=== PATIENT | male | born 1950 | race Caucasian/White ===

== ENCOUNTER → 2019-09-29 12:44 | Outpatient (CLI) | payer OTHER, SELFPAY ==
--- NOTE | 2019-09-29 12:50 | RAD_ITS ---
STUDY: X-RAY - LEFT KNEE REASON FOR EXAM: Male, 69 years old. PAIN IN LEFT KNEE. NO KNOWN RECENT INJURY. TECHNIQUE: 4 view(s) of the knee. COMPARISON: None. FINDINGS: Normal visualized distal femur. Normal visualized proximal tibia and fibula. Normal proximal tibiofibular articulation. Normal medial femorotibial compartment. There is mild degenerative arthrosis of the lateral femorotibial compartment. Normal patellofemoral articulation. The soft tissue structures are unremarkable. RAD/Knee 4 or More Views IMPRESSION: Degenerative arthrosis. Electronically Signed: Ivan Velazquez, at 15:25 EDT , Service support ,
--- NOTE | 2019-09-29 14:11 | RAD_ITS ---
STUDY: X-RAY - RIGHT SHOULDER REASON FOR EXAM: Male, 69 years old. PAIN IN RIGHT SHOULDER FOR YEARS. NO KNOWN RECENT INJURY. TECHNIQUE: 4 view(s) of the shoulder. COMPARISON: None. FINDINGS: Normal glenohumeral articulation. There is degenerative arthrosis of the acromioclavicular joint without inferior osseous spur formation. Normal acromion. Normal humeral head and visualized proximal humerus. There is periarticular soft tissue calcification consistent with a calcific tendinitis. Normal visualized pulmonary apex. RAD/Shoulder min 2 Views IMPRESSION: Calcific tendinitis. Electronically Signed: Ivan Velazquez, at 15:26 EDT , Service support ,
== END ==
PROVIDERS: PCP Internal Medicine; Referring Provider Orthopaedic Surgery; Visit Provider Orthopaedic Surgery
DX: M75.31 Calcific tendinitis of right shoulder (principal); M17.12 Unilateral primary osteoarthritis, left knee
CPT/HCPCS: 73030; 73564

== ENCOUNTER → 2020-02-09 09:47 | Outpatient (CLI) | payer MEDICARE, OTHER, SELFPAY ==
[2019-12-01 14:21] VITALS: BMI 31.7
[2020-02-09 12:11] LABS: Absolute Lymphocyte Count 1.53 X10^3/uL (0.83-4.51); Absolute Neutrophil Count 3.9 X10^3/uL (2.0-7.7); Basophil# 0.02 X10^3/uL; Basophil% 0.3 % (0-1); Eosinophils% 1.7 % (0-5); Hemoglobin 15.4 g/dL (13.0-16.5); Lymphocyte # 1.53 X10^3/ul (4.0); Lymphocyte % 25.3 % (19-41); Mean Corp Hgb Conc 34.2 g/dL (32-36); Mean Corpuscular Volume 93.4 fL (80-94); Mean Platelet Vol. 10.2 fl (6.2-12.0); Monocyte# 0.44 X10^3/uL; Monocyte% 7.3 % (0-10); NRBC Flagged by Analyzer 0 % (0-5); Neutrophil # 3.94 X10^3/uL (2.7-7.7); Neutrophil % 65.1 % (47-70); Platelet Count 198 K/mm3 (150-450); RBC Distribution Width CV 12.1 % (11.6-14.6); RBC Distribution Width SD 41.5 fl (35.1-43.9); Red Blood Count 4.82 M/mm3 (4.6-6.2); White Blood Count 6.1 K/mm3 (4.4-11.0)
[2020-02-09 12:38] LABS: ALB/GLOB Ratio 0.9 RATIO (0.9-2.4); AST(SGOT) 25 U/L (15-37); Alanine Aminotransfer ALT/SGPT 48 U/L (16-61); Albumin, Serum 3.5 g/dL (3.2-5.0); Alkaline Phosphatase 83 U/L (45-117); Anion Gap 3 (5-15); BUN 16 mg/dL (7-18); BUN/Creat Ratio 11.6 RATIO (10-20); Calcium,Total 9.1 mg/dL (8.5-10.1); Chloride 111 mmol/L (98-107); Cholesterol 186 mg/dL (200); Creatinine, Serum 1.38 mg/dL (0.70-1.30); EST Glomerular Filtration Rate 54 mL/min (>60); Est Glom Filt Rate - Afr Amer 66 mL/min (>60); Globulin 3.7 g/dL (2.2-4.2); Glucose 95 mg/dL (74-106); High Density Lipoprotein 27 mg/dL; Potassium 4.1 mmol/L (3.5-5.1); Protein, Total 7.2 g/dL (6.4-8.2); Sodium Level 140 mmol/L (136-145); Triglycerides 852 mg/dL
== END ==
PROVIDERS: PCP Internal Medicine; Visit Provider Internal Medicine
DX: E78.5 Hyperlipidemia, unspecified (principal); I48.91 Unspecified atrial fibrillation; I10 Essential (primary) hypertension
CPT/HCPCS: 36415; 80053; 80061; 85025

== ENCOUNTER → 2020-03-19 17:36 | Outpatient (CLI) | payer MEDICARE, OTHER, SELFPAY ==
[2020-03-19 11:33] VITALS: BMI 38.9
== END ==
PROVIDERS: PCP Internal Medicine; Referring Provider Physician Assistant Surgical; Visit Provider Physician Assistant Surgical
DX: Z20.828 Contact with and (suspected) exposure to other viral communicable diseases (principal)
CPT/HCPCS: 87635; C9803; U0003

== ENCOUNTER → 2020-05-12 09:00 | Outpatient (CLI) | payer MEDICARE, OTHER, SELFPAY ==
[2020-05-12 12:53] LABS: AST(SGOT) 18 U/L (15-37); Alanine Aminotransfer ALT/SGPT 44 U/L (16-61); Albumin, Serum 3.6 g/dL (3.2-5.0); Alkaline Phosphatase 76 U/L (45-117); Anion Gap 7 (5-15); BUN 28 mg/dL (7-18); BUN/Creat Ratio 19.7 RATIO (10-20); Calcium,Total 9.5 mg/dL (8.5-10.1); Chloride 108 mmol/L (98-107); Cholesterol 160 mg/dL (200); Creatinine, Serum 1.42 mg/dL (0.70-1.30); EST Glomerular Filtration Rate 52 mL/min (>60); Est Glom Filt Rate - Afr Amer 63 mL/min (>60); Globulin 3.6 g/dL (2.2-4.2); Glucose 110 mg/dL (74-106); High Density Lipoprotein 53 mg/dL; PSA,Total - Annual Screen 4.01 ng/mL (0.00-4.00); Potassium 4.3 mmol/L (3.5-5.1); Protein, Total 7.2 g/dL (6.4-8.2); Sodium Level 140 mmol/L (136-145); Triglycerides 131 mg/dL; Very Low Density Lipoprotein 26 mg/dL (5-40)
== END ==
PROVIDERS: Nurse Practitioner Family; PCP Internal Medicine; Referring Provider Internal Medicine; Visit Provider Internal Medicine
DX: E78.1 Pure hyperglyceridemia (principal); E78.5 Hyperlipidemia, unspecified; I10 Essential (primary) hypertension; N40.0 Benign prostatic hyperplasia without lower urinary tract symptoms
CPT/HCPCS: 36415; 80053; 80061; 84153; G0103

== ENCOUNTER → 2020-05-25 17:01 | Outpatient (CLI) | payer MEDICARE, OTHER, SELFPAY ==
[2020-05-14 13:04] VITALS: BMI 31.8
--- NOTE | 2020-05-25 17:01 | MRI_ITS ---
STUDY: MRI LUMBAR SPINE WITHOUT CONTRAST REASON FOR EXAM: Male, 70 years old. LBP, abnormal xrays, prior laminectomy at L4-L5 TECHNIQUE: Standardized fat and water weighted pulse sequences were obtained in the sagittal and axial planes. COMPARISON: Lumbar spine x-rays 05/10/2020 FINDINGS: T12-L1: Normal endplates. Normal disc height, hydration and morphology. Normal bilateral facet joints. Normal central canal and bilateral lateral recesses. Normal bilateral intervertebral neural foramina. Normal lumbar lordosis. There is no substantial scoliosis. Normal conus medullaris that terminates at T12-L1 L1-2: Normal endplates. Normal disc height, hydration and morphology. Normal bilateral facet joints. Normal central canal and bilateral lateral recesses. Normal bilateral intervertebral neural foramina. L2-3: Normal endplates. Normal disc height, hydration and morphology. Normal bilateral facet joints. Normal central canal and bilateral lateral recesses. Normal bilateral intervertebral neural foramina. L3-4: Normal endplates. Normal disc height, hydration and morphology. Normal bilateral facet joints. Normal central canal and bilateral lateral recesses. Normal bilateral intervertebral neural foramina. L4-5: Postop change status post left laminectomy Normal endplates. Normal disc height, hydration and minimal bulging disc osteophyte complex. Mild bilateral facet arthropathy more pronounced on the right.. Normal central canal and bilateral lateral recesses. Moderate right neuroforaminal stenosis and mild encroachment on the left. L5-S1: Grade 1 spondylolisthesis with bilateral spondylolysis. Normal endplates. Normal disc height, desiccation and minimal bulging disc osteophyte complex with small left posterolateral/foraminal disc protrusion... Bilateral facet arthropathy more pronounced on the right. Normal central canal and bilateral lateral recesses. Moderate right neuroforaminal stenosis with more severe narrowing on the left Normal visualized sacral ala. Normal visualized paraspinous soft tissue structures Findings are similar to that seen on x-rays given differences in imaging modalities. MRI/Spine Lumbar (Routine) IMPRESSION: No evidence for acute fracture or other significant bony pathology. Postop change status post left laminectomy at L4-5 Spinal stenosis secondary to disc disease and bony hypertrophy at L4-5 greater on the right and L5-S1 greater on the left.. Findings as above Electronically Signed: Veto Proctor MD at 20:53 EST , Service support ,
== END ==
PROVIDERS: PCP Internal Medicine; Referring Provider Orthopaedic Surgery; Visit Provider Orthopaedic Surgery
DX: M54.16 Radiculopathy, lumbar region (principal)
CPT/HCPCS: 72148

== ENCOUNTER → 2020-11-09 09:50 | Outpatient (CLI) | payer MEDICARE, OTHER, SELFPAY ==
[2020-06-09 10:54] VITALS: BMI 31.8
[2020-11-09 12:56] LABS: Cholesterol 136 mg/dL (200); High Density Lipoprotein 45 mg/dL; Triglycerides 202 mg/dL; Very Low Density Lipoprotein 40 mg/dL (5-40)
[2020-11-09 15:32] LABS: Absolute Lymphocyte Count 1.49 X10^3/uL (0.83-4.51); Basophil# 0.04 X10^3/uL; Basophil% 0.8 % (0-1); Eosinophil# 0.13 X10^3/uL; Eosinophils% 2.5 % (0-5); Hematocrit 47.8 % (40-54); Hemoglobin 15.6 g/dL (13.0-16.5); Lymphocyte # 1.49 X10^3/ul (0.83-4.51); Lymphocyte % 29.2 % (19-41); Mean Corp Hgb Conc 32.6 g/dL (32-36); Mean Corpuscular Hgb 31.5 pg (27.0-32.0); Mean Corpuscular Volume 96.4 fL (80-94); Mean Platelet Vol. 10.4 fl (6.2-12.0); Monocyte# 0.41 X10^3/uL; NRBC Flagged by Analyzer 0 % (0-5); Neutrophil # 3.02 X10^3/uL (2.7-7.7); Neutrophil % 59.3 % (47-70); Platelet Count 223 K/mm3 (150-450); RBC Distribution Width CV 12.3 % (11.6-14.6); RBC Distribution Width SD 44.2 fl (35.1-43.9); Red Blood Count 4.96 M/mm3 (4.6-6.2); White Blood Count 5.1 K/mm3 (4.4-11.0)
[2020-11-09 15:47] LABS: ALB/GLOB Ratio 1.1 RATIO (0.9-2.4); AST(SGOT) 18 U/L (15-37); Alanine Aminotransfer ALT/SGPT 32 U/L (16-61); Albumin, Serum 3.9 g/dL (3.2-5.0); Alkaline Phosphatase 73 U/L (45-117); Anion Gap 6 (5-15); BUN 16 mg/dL (7-18); BUN/Creat Ratio 11.7 RATIO (10-20); Calcium,Total 9.5 mg/dL (8.5-10.1); Chloride 108 mmol/L (98-107); Creatinine, Serum 1.37 mg/dL (0.70-1.30); EST Glomerular Filtration Rate 55 mL/min (>60); Est Glom Filt Rate - Afr Amer 66 mL/min (>60); Globulin 3.6 g/dL (2.2-4.2); Glucose 86 mg/dL (74-106); Potassium 4.2 mmol/L (3.5-5.1); Protein, Total 7.5 g/dL (6.4-8.2); Sodium Level 142 mmol/L (136-145); Thyroid Stim Hormone (TSH) 1.67 uIU/mL (0.358-3.74)
[2020-11-11 15:29] LABS: PSA, Total 3.9 ng/mL (0.0-4.0)
== END ==
PROVIDERS: Nurse Practitioner Family; PCP Internal Medicine; Visit Provider Internal Medicine
DX: I10 Essential (primary) hypertension (principal); I48.0 Paroxysmal atrial fibrillation; N40.0 Benign prostatic hyperplasia without lower urinary tract symptoms; E78.5 Hyperlipidemia, unspecified
CPT/HCPCS: 36415; 80053; 80061; 84153; 84443; 85025

== ENCOUNTER → 2021-01-28 10:41 | Outpatient (CLI) | payer MEDICARE, OTHER, SELFPAY ==
[2021-01-28 12:14] LABS: Absolute Lymphocyte Count 1.34 X10^3/uL (0.83-4.51); Absolute Neutrophil Count 2.3 X10^3/uL (2.0-7.7); Basophil# 0.01 X10^3/uL; Basophil% 0.2 % (0-1); Eosinophil# 0.07 X10^3/uL; Eosinophils% 1.7 % (0-5); Hematocrit 43.5 % (40-54); Hemoglobin 14.7 g/dL (13.0-16.5); Lymphocyte # 1.34 X10^3/ul (0.83-4.51); Lymphocyte % 33.3 % (19-41); Mean Corp Hgb Conc 33.8 g/dL (32-36); Mean Corpuscular Hgb 32.1 pg (27.0-32.0); Mean Platelet Vol. 10.4 fl (6.2-12.0); Monocyte# 0.31 X10^3/uL; Monocyte% 7.7 % (0-10); NRBC Flagged by Analyzer 0 % (0-5); Neutrophil # 2.29 X10^3/uL (2.7-7.7); Neutrophil % 56.9 % (47-70); Platelet Count 215 K/mm3 (150-450); RBC Distribution Width CV 12.7 % (11.6-14.6); RBC Distribution Width SD 43.8 fl (35.1-43.9); Red Blood Count 4.58 M/mm3 (4.6-6.2)
[2021-01-28 12:43] LABS: ALB/GLOB Ratio 1.1 RATIO (0.9-2.4); AST(SGOT) 17 U/L (15-37); Alanine Aminotransfer ALT/SGPT 30 U/L (16-61); Albumin, Serum 3.7 g/dL (3.2-5.0); Alkaline Phosphatase 65 U/L (45-117); Anion Gap 3 (5-15); BUN 18 mg/dL (7-18); BUN/Creat Ratio 13.2 RATIO (10-20); Calcium,Total 9.4 mg/dL (8.5-10.1); Chloride 111 mmol/L (98-107); Cholesterol 117 mg/dL (200); Creatinine, Serum 1.36 mg/dL (0.70-1.30); EST Glomerular Filtration Rate 55 mL/min (>60); Est Glom Filt Rate - Afr Amer 66 mL/min (>60); Globulin 3.3 g/dL (2.2-4.2); Glucose 99 mg/dL (74-106); High Density Lipoprotein 38 mg/dL; Potassium 3.9 mmol/L (3.5-5.1); Sodium Level 142 mmol/L (136-145); Thyroid Stim Hormone (TSH) 1.07 uIU/mL (0.358-3.74); Triglycerides 157 mg/dL; Very Low Density Lipoprotein 31 mg/dL (5-40)
== END ==
PROVIDERS: PCP Internal Medicine; Referring Provider Nurse Practitioner Family; Visit Provider Nurse Practitioner Family
DX: Z01.812 Encounter for preprocedural laboratory examination (principal); M17.12 Unilateral primary osteoarthritis, left knee; I48.0 Paroxysmal atrial fibrillation; I10 Essential (primary) hypertension; E78.5 Hyperlipidemia, unspecified; E78.1 Pure hyperglyceridemia; N40.0 Benign prostatic hyperplasia without lower urinary tract symptoms
CPT/HCPCS: 36415; 80053; 80061; 84443; 85025

== ENCOUNTER → 2021-02-07 13:12 | Outpatient (CLI) | payer MEDICARE, OTHER, SELFPAY ==
--- NOTE | 2021-02-07 13:18 | CT_ITS ---
CT Lower Extremity W/O Contrast Injection INDICATION:70 years old Male presenting with CT templating for TKA. TECHNIQUE: Sequential axial images were obtained, (2.5 mm through the hip and ankle and 0.65 mm through the knee) with sagittal and coronal 2-D reformats. No contrast is administered. COMPARISON: None. FINDINGS: No evidence of left hip dislocation, subcortical cysts is slightly increased density along the undersurface of the left hip is visualized but no evidence of cortical irregularity and lucency to suggest a fracture. Degenerative bone changes are seen. Moderate narrowing of the medial and lateral left knee joint spaces, mild narrowing of the patellofemoral joint space, degenerative bone changes with osteophyte formation seen, no evidence of cortical irregularity or lucency to suggest a fracture, no evidence of lytic or sclerotic lesion is seen. A bone density visualized in the left lateral joint space, no donor site is visualized. Degenerative changes visualized in the left ankle joint, the ankle mortise is well-maintained, the talar dome is unremarkable, unremarkable alignment of the medial and lateral malleoli is seen. Degenerative changes seen. IMPRESSION: Degenerative changes, no acute osseous abnormality is seen. Electronically Signed: Adeel Stiles MD at 14:56 EDT Tel , Service support , CT/Extremity Lower without Contra
== END ==
PROVIDERS: PCP Internal Medicine; Referring Provider Orthopaedic Surgery; Visit Provider Orthopaedic Surgery
DX: M17.12 Unilateral primary osteoarthritis, left knee (principal)
CPT/HCPCS: 73700

== ENCOUNTER 2021-02-22 09:59 | Inpatient (IN) | payer MEDICARE, OTHER, SELFPAY ==
--- NOTE | 2021-02-09 10:34 | EKG12_ITS ---
Test Reason : PRE OP Blood Pressure : / mmHG Vent. Rate : 080 BPM Atrial Rate : 080 BPM P-R Int : 182 ms QRS Dur : 086 ms QT Int : 372 ms P-R-T Axes : 076 081 066 degrees QTc Int : 429 ms Normal sinus rhythm Normal ECG Confirmed by LEOLA GARCIA, TAMIKO ([id number]), editor dictionary VANESSA SYED ([id number]) on 02/10/2021 9:11:50 AM Referred By: Feroz Fairbanks Confirmed By:TAMIKO BHAGAT MD
[2021-02-09 11:36] LABS: International Normalized Ratio 1.1; Prothrombin Time (Protime)PT. 13.2 SECONDS (11.7-14.9)
[2021-02-09 11:37] LABS: Partial Thromboplast Time 29.8 Seconds (24.1-36.2)
[2021-02-09 11:48] LABS: Magnesium 2.2 mg/dL (1.6-2.6)
[2021-02-10 08:25] LABS: Fructosamine 208 umol/L (0-285)
[2021-02-22] VITALS (13 sets, daily range): BP systolic 80–133; BP diastolic 53–90; PULSE 51–77; RESP 14–22; TEMP 36–36.9; O2SAT 96–100; BMI 28.1
[2021-02-22] MEDS: Lactated Ringers 1,000 ML 100 ML IV ×2 (06:45→08:45)
[2021-02-22] MEDS: Gabapentin 600 MG Tablet PO (06:46)
[2021-02-22] MEDS: Scopolamine 1mg/72hr Patch 1 PATCH TD (06:46)
[2021-02-22] MEDS: Acetaminophen 500 MG Tablet 1000 MG PO ×3 (06:46→20:55)
--- NOTE | 2021-02-22 06:55 | HP.PCM_ITS ---
History and Physical Date of Admission: 02/22/21 [id number]: TAMIKO RICHRep #:[id number] Provider: HEMANT Connors/Sex: 70/M [facility] [place] Intake Intake Visit Reasons: left knee Chief Complaint: surgery clearance Allergies No Known Allergies Allergy (Verified 02/08/21 13:52) PFSH Medical History (Updated 02/08/21 @ 14:10 by Jessy Aquino) Ambulates with cane Arthritis BPH (benign prostatic hyperplasia) Cancer Cardiology follow-up encounter Chronic atrial fibrillation Essential hypertension High cholesterol History of atrial fibrillation History of basal cell carcinoma History of pain when walking History of squamous cell carcinoma History of stress test Hyperlipemia Hyperlipidemia Hypertriglyceridemia Knee pain Non-smoker Normal echocardiogram Preoperative clearance Seasonal allergies Shoulder pain Wears glasses Surgical History (Updated 02/08/21 @ 14:10 by Jessy Aquino) History of basal cell carcinoma excision History of cardiac radiofrequency ablation (RFA) (~02/2019) Hx of colonoscopy Hx of laminectomy Status post repair of anterior cruciate ligament Family History Father Heart disease COPD (chronic obstructive pulmonary disease) Brother Cancer melanoma Mother Paroxysmal atrial fibrillation Social History Smoking Status: Never smoker Tobacco: How many years used: 1 how long ago did patient quit smokin alcohol intake: current alcohol intake frequency: 0-2 drinks per day Alcohol type: beer substance use type: does not use caffeine: Yes Type: carbonated beverages what type of physical activity do you participate in: walking frequency: daily HPI left knee Details: Parts of this documentation were recorded by a scribe, this documentation accurately reflects the service provided and the decisions made by , HEMANT Peralta 02/11/21 1027. TAMIKO RICH is a 70 year old M here today for his left knee IOVERA treatment. DOS: 02/22/2021. Patient signed surgical consent today. Ortho Exam Left Knee Skin/Wound: No ecchymosis, No erythema and No swelling Contralateral Normal: Yes Knee ROM: No ROM-Extension -20 to 0 and No ROM-Flexion 0-140 Examination: No med jt line tenderness and Yes Lat jt line tenderness KNEE: Patient has no acute abnormalities on inspection of the knee. He has no localized generalized swelling no effusions. No ecchymosis/bruising, erythema, or other skin changes. He has no signs of acute inflammation or infection today. Soft compartments of the lower extremity no calf tenderness and a negative Homans. Office Procedures Iovera Procedure Details:: Preoperative diagnosis : Left knee DJD: Osteoarthritis type: primary Postoperative diagnosis: Same Procedure: Cryotherapy with Iovera device to anterior femoral cutaneous nerve and 2 branches of the infrapatellar saphenous nerve III nerves in total Description of procedure: Patient was brought back to the procedure room the operative extremity was identified by both patient and physician. The PIP flexion crease was measured to the midpoint of the patella and this distance was divided in 3 resulting in 12 cm location proximal to the midpoint of the patella. This line was extended medial and lateral to the extent of the edges of the patella. This was our treatment line for the anterior femoral cutaneous nerve. A second treatment line was made 5 cm medial to the inferior pole of the patella and 5 cm distally. The leg was prepped with alcohol and Betadine. Lidocaine with epi was used along the treatment lines. Using the Iovera device treatment lines were treated with 1 minute cycles. Reproduction of paresthesias was monitored in the area of nerve distribution. Once all 3 nerves were treated across the 2 treatment lines patient was cleaned and a light dressing with 4 x 4 and Ajit wrap was applied. Patient tolerated the procedure without complication. Coding Level of Care Code Attention Kei Diagnoses Left knee DJD M17.12 Osteoarthritis type: primary Comment CPT? 14090 - Iovera treatment Assessment and Plan Assessment and Plan (1) Left knee DJD: Status: Acute Qualifiers: Osteoarthritis type: primary Qualified Code(s): M17.12 - Unilateral primary osteoarthritis, left knee Plan - HEMANT Palma: Patient presents the office today for preoperative Iovera treatment of the left knee. Patient states he is particularly with procedure as he did research this although we did discuss the [id number] as well as the goals of the treatment. After discussion all questions were answered and consent was signed in office today. Iovera was then performed on the left knee under normal sterile fashion as noted in the above procedure section. Patient tolerated procedure with minimal discomfort (only local anesthesia infiltration). No complications were observed. Patient is to wear the Ajit wrap for 24 hours. He can ice this multiple times a day. He can shower in 24 hours at the same time do not want him to soak/submerse the wound for the 72 hours. Monitor notify of any erythema, warmth, increased pain, swelling, discharge, or any other signs or symptoms. Patient to notify our office with any questions or concerns prior to his operation. This note was generated with [employer] software. It may contain incorrect words, spelling, and punctuation that were not noted in checking the note before signing. Plan Details Other Orders: Orders: Iovera Today [id number] 02/11/21 1302<Electronically signed by Rene MARCOS>Date Rene MARCOS Cosigner Signature:Date (if applicable) CC: ~I have re-examined the patient. There are no clinical changes since date of exam
[2021-02-22 07:06] LABS: Bedside Glucose 63 mg/dL (70-110)
--- NOTE | 2021-02-22 07:30 | KNEE_PTH ---
PATIENT: TAMIKO RICH LOC: [facility] U#:[id number] AGE/SX: 70/M ROOM: CO315 RE02/22/[address]: Dr. Feroz Fairbanks DO : 1950 BED: 1 DIS: 02/23/2021 SPEC #: [id number] RECD: 02/22/21 12:08 STATUS: RITU REBakari #: [id number] TRI: 02/22/21 07:[address]: Feroz Fairbanks DEPT: SURGICAL PATHOLOGY RECD BY: Indira Hudson ENTERED: 02/22/21 13:09 SP TYPE: TOTAL KNEE OTHR DR: Dr. Rin Du MD Tissues: Knee, NOS Procedures: Decalcification bone/plaque Surgery Specimen Level IV HEADER OPERATION: ERAS, total knee replacement robotic arm assist PRE-OP DIAGNOSIS: Osteoarthritis left knee TISSUE SUBMITTED: Left knee bone and soft tissue MICROSCOPIC DIAGNOSIS Bone and tissue, left knee, total knee replacement/resection: Pieces of bone with degenerative osteoarthritic changes. ROBSON:antonio 02/25/2021 MICROSCOPIC DESCRIPTION Slides are reviewed. GROSS DESCRIPTION Received is one container designated bone and soft tissue left knee. The specimen consists of multiple fragments of peres-yellow bone measuring in aggregate 10 x 9 x 3 cm. No soft tissue is identified. A number of bony fragments contain articular surfaces consistent with tibial plateau and femoral condyle and displaying prominent osteophyte formation, eburnation, and bone erosion. Knee Bolter sections are submitted in one cassette after decalcification. / ROBSON:antonio 02/22/21 TC:5 CPT: 22775, 03463
[2021-02-22] MEDS: Cefazolin 2 GM in 0.9% Normal Saline 100 ML IV (07:42)
[2021-02-22] MEDS: dexAMETHasone 10 MG/ML Vial IV (07:55)
[2021-02-22] MEDS: Betamethasone/Betamethasone 30 MG/5 ML Vial (09:15)
[2021-02-22] MEDS: 0.9% Normal Saline (Pres. free 10 ML Vial (09:15)
[2021-02-22] MEDS: Bupivacaine 0.5% PF 10 ML VIAL (09:15)
[2021-02-22] MEDS: Epinephrine (1 mg/ml) 1 MG/ML VIAL (09:15)
--- NOTE | 2021-02-22 09:57 | OP.PCM_ITS ---
Report of Operation Date of Procedure: 02/22/21 Description of Surgical Findings:: Preoperative diagnosis: Left knee DJD Postoperative diagnosis: Same Procedure: Left total knee arthroplasty CT guided Robotic Assisted Implant: Mumtaz triathlon press fit, femoral component size 6, tibial baseplate size 6, asymmetric patella size 40, polyethylene X3 size 9 CS Anesthesia: Spinal with adductor canal block Tourniquet time: 25 minutes at 300 mmHg Complications: None Condition: Stable to PACU Estimated blood loss: 200 cc Indication for procedure: This is a 70 year old male with long standing degenerative joint disease of the knee who has failed conservative treatment and wished to proceed with elective total knee arthroplasty. Risk benefits and alternatives were reviewed including; risk of bleeding, infection, nerve artery and tissue damage, continued pain, postoperative stiffness, venous thromboe mbolism, need for postoperative rehabilitation, mechanical feel to the knee, and expected postoperative course. The operative CT and templating was performed with component sizing Procedure: The patient was met in the preoperative holding area. The operative extremity was identified by both patient and physician and was marked. Patient was met by anesthesia. An adductor canal block was placed by anesthesia postoperatively the patient was brought back to the operating room on a wheeled cart and transferred to the operating table in the supine position. Anesthesia was started. A well-padded tourniquet was placed on the operative extremity. The patient was prepped and draped in the usual sterile fashion. A timeout was called to ensure the proper patient procedure and extremity were being contemplated. An Esmarch was used to exsanguinate the extremity. The tourniquet was inflated. A 10 blade scalpel was used to make a midline incision down through the skin and subcutaneous tissue. Skin retractors placed. Bovie was used to perform meticulous hemostasis. full-thickness flaps were elevated medial and lateral along the joint capsule. A deep blade scalpel was used to perform a medial parapatellar arthrotomy. The knee was brought to full extension. A Bovie was used to release the soft tissues off the most proximal aspect of the medial tibial plateau, a three-quarter inch curved osteotome was also used for this process. The infrapatellar fat pad was excised. The superior fat pad was excised partially anteriorolateraly and portion the anterioromedial pad was elevated from the femur. At this point our intra- articular femoral array was placed of a 45 degree angle proximal and posterior to the medial epicondyle. Our tibial array was placed greater than 1 hands deepa ath below the incision at a 20 degree angle stab incisions were used for this case were attached and checked with the robotic software. Tourniquet was let down. At this point registration murillo were taken throughout the knee as well as checkpoints placed in the femur and tibia once the knee was registered then tensioned the medial and lateral ligaments in extension and 90 degrees of flexion. We then used these numbers to adjust our components within parameters to balance the knee in both flexion and extension once this was done on our monitor we then proceeded with using the robotic arm to make our tibial plateau cut and anterior posterior and chamfer cuts and distal on the femur we then trialed and achieved the desired plan with a well-balanced knee. Lug holes were drilled in the femur the tibia preparation was completed with a fin punch and the patella was prepared by first using a caliper to ensure sufficient bone stock and a patellar reamer to remove the desired amount of bone locals were drilled for an asymmetric poly-. We then brought the knee through range of motion with excellent patellar tracking. We thoroughly irrigated the knee with a trial components were removed a posterior capsular injection with her standard cocktail was performed the aqua Mantis was also used to aid in hemostasis. Betadine rinse was allowed to sit and washed out components were press-fit into place. Aricept rinse was then used followed by several more rate liters of irrigation after it was allowed to sit. Joint capsule was closed with #1 Ethibond [id number]'s followed by Vicryl in the subcutaneous tissues staple in the skin arrays and checkpoints were removed prior to closure all counts were correct stab incisions were closed with a stable standard dressing in the form of Mepilex for the main incision Xeroform 4 x 4 and Tegaderm over pin site holes. Thigh-high DESTINY hose applied over top of dressing. Patient tolerated the procedure well and was directed to PACU in stable condition no intraoperative complications
--- NOTE | 2021-02-22 10:00 | RAD_ITS ---
STUDY: X-RAY - LEFT KNEE REASON FOR EXAM: Postoperative evaluation of left total knee arthroplasty. TECHNIQUE: 2 view(s) of the knee. COMPARISON: Radiographs 01/06/2021. FINDINGS: There is a left total knee arthroplasty without evidence of complication. There is postoperative gas in the soft tissues. There are overlying skin amy. RAD/Knee 1 or 2 Views IMPRESSION: Uncomplicated left total knee arthroplasty. Electronically Signed: Kevin Mcqueen MD at 11:23 EDT Tel , Service support ,
[2021-02-22] MEDS: Lactated Ringers 1,000 ML 125 ML IV ×3 (10:45→18:54)
[2021-02-22] MEDS: Cefazolin 1 GM/50 ML BAG IV ×2 (15:41→20:55)
[2021-02-22] MEDS: oxyCODONE 5 MG Tablet PO (18:53)
--- NOTE | 2021-02-22 20:09 | NURSING ---
PT C/O FEELING NEED TO VOID BUT ONLY VOIDING SMALL AMOUNTS. BLADDER SCAN = 549ML. PT STRAIGHT CATHED FOR 700 CLEAR STRAW COLOR URINE.
[2021-02-22] MEDS: Atorvastatin Calcium 40 MG Tablet PO (20:49)
[2021-02-22] MEDS: Senna/Docusate Sodium 1 Tablet 2 TABLET PO (20:49)
[2021-02-22] MEDS: Doxazosin 4 MG Tablet PO (20:52)
[2021-02-22] MEDS: Fenofibrate 48 MG Tablet PO (20:52)
[2021-02-23 02:25] VITALS: BP 115/53; PULSE 55; RESP 16; TEMP 36.6; O2SAT 96
[2021-02-23] MEDS: Acetaminophen 500 MG Tablet 1000 MG PO ×2 (05:31→14:45)
[2021-02-23] MEDS: Cefazolin 1 GM/50 ML BAG IV (05:32)
[2021-02-23 07:25] VITALS: BP 108/60; PULSE 66; RESP 18; TEMP 37; O2SAT 95
[2021-02-23 07:33] LABS: Hematocrit 35.3 % (40-54); Mean Corpuscular Hgb 32.2 pg (27.0-32.0); Mean Corpuscular Volume 94.6 fL (80-94); Mean Platelet Vol. 10.1 fl (6.2-12.0); Platelet Count 165 K/mm3 (150-450); RBC Distribution Width CV 13.3 % (11.6-14.6); RBC Distribution Width SD 45.8 fl (35.1-43.9); Red Blood Count 3.73 M/mm3 (4.6-6.2); White Blood Count 14.1 K/mm3 (4.4-11.0)
[2021-02-23 07:58] VITALS: O2SAT 95
[2021-02-23 08:08] LABS: Anion Gap 6 (5-15); BUN 19 mg/dL (7-18); BUN/Creat Ratio 13.8 RATIO (10-20); Chloride 108 mmol/L (98-107); Creatinine, Serum 1.38 mg/dL (0.70-1.30); EST Glomerular Filtration Rate 54 mL/min (>60); Est Glom Filt Rate - Afr Amer 65 mL/min (>60); Estimated Creatinine Clearance 51.43 ml/min; Glucose 131 mg/dL (74-106); Potassium 4.3 mmol/L (3.5-5.1); Sodium Level 140 mmol/L (136-145)
--- NOTE | 2021-02-23 08:09 | PCS.PANDOC ---
PANDEMIC DOCUMENTATION INITIATED: Date: 01/24/2021 Time: 190
[2021-02-23] MEDS: oxyCODONE 5 MG Tablet PO (08:54)
[2021-02-23] MEDS: Senna/Docusate Sodium 1 Tablet 2 TABLET PO (08:57)
[2021-02-23 09:11] VITALS: O2SAT 99
--- NOTE | 2021-02-23 09:43 | CASEMGMT ---
Late entry for 02/22/21 at 1527- Paged , received call back. Confirmed that he anticipates patient to stay in the hospital for two midnights.
--- NOTE | 2021-02-23 10:03 | CASEMGMT ---
ALICIA VALDOVINOS Assessment: Face to Face with pt for initial transition planning/care coordination assessment. RN ARUNA introduced self and role at [facility], pt voices understanding and consents to assessment. Pt is A/O x4 and answers all questions appropriately at this time. Pt sitting up in chair in no distress. Care providers, pharmacy, and demographics verified/updated. Admitting Dx: L Total Knee Robotic PCP:Ana Laura Specialists:Magdi, ortho; Mercy, derm; Renea, cardio [facility]erred [facility]acy: [facility] Insurance: MCR, Comm other Prescription Benefit: yes LW/HPOA: Pt reports he has a LW/DPOA and his DPOA is his Nuzhat Martin. He is aware that it is not on file at [facility] and he may bring in to be scanned to his chart. LNOK: Nuzhat Martin, Living Arrangements: Pt lives with in a two story house with 3- 1/2 steps to enter or he has a ramp. Pt reports being I in ADL's and denies concerns at home. Transportation: Pt drives self. is able to transport him while he cannot drive to medical appts. DME/HHC/SNF: Pt has a FWW. He denies hx of HHC or SNF stays. Pt is set up with [facility] at [facility] to start tomorrow at 10am. Pt has concerns with his eliquis being ordered. Provided a savings card with explanation. Made pt aware this CM could not find out the cost of the med until it is ordered. Pt states he may have used one of these in the past but is not sure. States if he did, [facility] [place], [place] ALICIA VALDOVINOS to call these pharmacies to verify. Pt states no concerns with going home at time of dc. Pt states no further concerns/needs. CM to follow. Advised pt to ask CM if any further question/concerns/needs arise, voices understanding. Pt Goal: Home Plan: Home with outpt therapy.
--- NOTE | 2021-02-23 10:27 | CASEMGMT ---
TC to [facility], spoke with pharmacy who states pt did fill a script with Eliquis and he did not use a savings card. Notified patient of this.
[2021-02-23 11:49] VITALS: BP 108/60; PULSE 66; RESP 17; TEMP 37; O2SAT 98
--- NOTE | 2021-02-23 12:49 | PCM.DC ---
Discharge Instructions Diet Discharge Diet: No restrictions Activity Weight Bearing Status: Weight bearing as tolerated Dressing / Incision Call your doctor if you observe: Shortness of breath and Chest pain Additional Dressing/Incision Instructions:: Ice and elevate one week while not ambulating. Ambulation is encouraged. Weightbearing as tolerated. Use assistive devise for stability. Encourage FULL knee extension and flexion 1 time EVERY time you get up and down and MULTIPLE times per day. No showering 72 hours after surgery. Begin showering postop day #3. Remove the dressing prior to shower and gently wash with warm water and antibacterial soap then pat dry and place abdominal pad (or plain gauze) and DESTINY hose over top. This is to be done daily. Do not submerge for 3 weeks. If not showering daily after the initial 72 hours then you must clean incision and change dressing daily. Do not allow animals near the incision area. Keep clean. Follow anticoagulation recommendations as prescribed. Do not take any NSAIDs while on blood thinner. Do not take any additional narcotic pain medication other than what was prescribed on your surgery day without discussing with physician. Narcotic medication can be addictive. Do not drink alcohol while taking narcotics. Start physical therapy. If you are not currently scheduled for physical therapy or you are unsure of appointment time please call office [facility] to arrange. Call Dr. Fairbanks with any concerns. Follow Up Care Please Follow Up With: Feroz Fairbanks DO When: 2 weeks Test Results: Test results from this visit will be discussed in further detail at your follow-up appointment, if applicable. Discharge Plan Admission Admit Date/Time: 02/22/21 09:59 Attending Provider: Feroz Fairbanks Primary Care Provider: Rin Du Discharge Orders/Prescriptions Prescriptions: New oxycodone 5 mg Tablet 5 - 10 mg PO Q4H PRN PRN (Reason: Pain Score 4-10) 7 Days Qty: 60 RF: 0 Eliquis 2.5 mg Tablet 2.5 mg PO BID 14 Days Qty: 28 RF: 0 Continued Centrum Silver Men 300-600-300 mcg tablet 1 tab PO DAILY RF: 0 aspirin [Adult Aspirin Regimen] 81 mg tablet,delayed release (DR/EC) 81 mg PO DAILY RF: 0 niacin 100 mg tablet 500 mg PO DAILY RF: 0 simvastatin 80 mg tablet 80 mg PO QPM Qty: 90 RF: 3 loratadine [Claritin] 10 mg tablet 10 mg PO DAILY PRN (Reason: allergy symptoms) Qty: 90 RF: 2 ascorbate calcium (vitamin C) 500 mg tablet 500 mg PO DAILY RF: 0 [id number]-[id number] 333-133-5 mg tablet 1 tab PO DAILY RF: 0 cholecalciferol (vitamin D3) [Vitamin D3] 50 mcg (2,000 unit) Capsule 50 mcg PO DAILY RF: 0 miscellaneous medical supply Misc 1 ea miscellaneous DIRECTED Qty: 1 RF: 0 fenofibrate 54 mg tablet 54 mg PO DAILY Qty: 90 RF: 3 doxazosin [Cardura] 4 mg tablet 4 mg PO QDAY Qty: 90 RF: 3 Discontinued omega-3 fatty acids [Fish Oil Concentrate] 1,000 mg capsule 2,400 mg PO DAILY RF: 0 Referrals / Follow Up: Rin Du MD [Primary Care Provider] -
--- NOTE | 2021-02-23 12:54 | DS.PCM_ITS ---
Providers Date of Admission: 02/22/21 Primary Care Physician: Dr. Rin Du MD Reason For Visit: LT TOTAL KNEE ROBOTIC Medications at Discharge Home Medications pmqtzaxu-snq-vbvty acid 300 mcg-lycopene 600 mcg-lutein 300 mcg tablet 1 tab PO DAILY 09/29/19 aspirin 81 mg tablet,delayed release 81 mg PO DAILY 12/01/19 loratadine 10 mg tablet 10 mg PO DAILY PRN #90 tab 11/12/20 niacin 100 mg tablet 500 mg PO DAILY 11/12/20 simvastatin 80 mg tablet 80 mg PO QPM #90 tab 11/12/20 ascorbate calcium (vitamin C) 500 mg tablet 500 mg PO DAILY 01/06/21 miscellaneous medical supply 1 ea MISCELLANEOUS DIRECTED #1 ea NS 01/10/21 bwkvwwe-mbxmvlnwp-hunz 333 mg-133 mg-5 mg tablet 1 tab PO DAILY 01/28/21 cholecalciferol (vitamin D3) [Vitamin D3] 50 mcg PO DAILY 02/08/21 doxazosin 4 mg tablet 4 mg PO QDAY #90 tab 02/09/21 fenofibrate 54 mg tablet 54 mg PO DAILY #90 tab 02/09/21 apixaban [Eliquis] 2.5 mg PO BID 14 Days #28 tab 02/23/21 oxycodone 5 - 10 mg PO Q4H PRN PRN 7 Days #60 tab 02/23/21 Hospital Course Operations total knee replacement Summary of Care Provided Hospital Course: Who has long history of degenerative joint disease to the knee who has failed conservative treatment and wished to undergo elective total knee arthroplasty. Patient underwent the aformentioned procedure on the admission date without any intraoperative complications. Patient did receive pre-and postoperative antibiotics which were discontinued within 23 hours postoperatively. Patient did receive [spinal anesthesia as well as an adductor canal block postoperatively]. pain was controlled with IV and transition to p.o. pain medication Patient will be discharged home with oxycodone and will continue Tylenol as well. Patient had minimal intraoperative blood loss and 2gm tranexamic acid was administered there was no need for postoperative blood transfusion Patients vital signs remained stable. Patient was started on both m echanical and chemical DVT per prophylaxis postoperatively in the form of SCDs DESTINY hose and [Eliquis 2.5 mg twice daily for which she will continue for 2 additional weeks post hospital discharge]. thigh high destiny hose placed over top of the meplix silver dressing. This should be removed 72 hrs post operatively and showering begun daily at that time with warm water and antibacterial soap. not to submerge for 3 weeks. To change dressing daily after first dressing change. Patient will follow-up in the office in 2 weeks. No intrahospital complications. Physical Exam Const alert and oriented x3 General Appearance: cooperative and comfortable Extremity Extremity Narrative: Dressing clean dry intact compartments soft neurovascular intact left lower extremity Weight / BMI Weight Weight: 196 lb 3.382 oz Body Mass Index (BMI) 28.1 ABG / Lab / Microbiology Data Result Diagrams: 02/23/21 07:08 02/23/21 07:08 Laboratory: Laboratory Results - last 24 hr 02/23/21 07:08: WBC 14.1 H, RBC 3.73 L, Hgb 12.0 L, Hct 35.3 L, MCV 94.6 H, MCH 32.2 H, MCHC 34.0, RDW Std Deviation 45.8 H, RDW Coeff of Uriel 13.3, Plt Count 165, MPV 10.1 02/23/21 07:08: Sodium 140, Potassium 4.3, Chloride 108 H, Carbon Dioxide 26.0, Anion Gap 6, BUN 19 H, Creatinine 1.38 H, Estim Creat Clear Calc 51.43, Est GFR (MDRD) Af Amer 65, Est GFR (MDRD) Non-Af 54 L, BUN/Creatinine Ratio 13.8, Glucose 131 H, Calcium 9.0 Microbiology: Microbiology 02/09/21 10:49 Swab (Method) Nasal Screen MRSA/MSSA - Final D/C Instructions Discharge Diet: No restrictions Weight Bearing Status: Weight bearing as tolerated Call your doctor if you observe: Shortness of breath and Chest pain Additional Dressing/Incision Instructions: Ice and elevate one week while not ambulating. Ambulation is encouraged. Weightbearing as tolerated. Use assistive devise for stability. Encourage FULL knee extension and flexion 1 time EVERY time you get up and down and MULTIPLE times per day. No showering 72 hours after surgery. Begin showering postop day #3. Remove the dressing prior to shower and gently wash with warm water and antibacterial soap then pat dry and place abdominal pad (or plain gauze) and DESTINY hose over top. This is to be done daily. Do not submerge for 3 weeks. If not showering daily after the initial 72 hours then you must clean incision and change dressing daily. Do not allow animals near the incision area. Keep clean. Follow anticoagulation recommendations as prescribed. Do not take any NSAIDs while on blood thinner. Do not take any additional narcotic pain medication other than what was prescribed on your surgery day without discussing with physician. Narcotic medication can be addictive. Do not drink alcohol while taking narcotics. Start physical therapy. If you are not currently scheduled for physical therapy or you are unsure of appointment time please call office [facility] to arrange. Call Dr. Fairbanks with any concerns. Please Follow Up With: Feroz Fairbanks DO When: 2 weeks Meaningful Use Info Meaningful Use Diagnoses (Choose all that apply): None applicable Discharge Plan Admission Admit Date/Time: 02/22/21 09:59 Attending Provider: Feroz Fairbanks Primary Care Provider: Rin Du Discharge Orders/Prescriptions Prescriptions: New oxycodone 5 mg Tablet 5 - 10 mg PO Q4H PRN PRN (Reason: Pain Score 4-10) 7 Days Qty: 60 RF: 0 Eliquis 2.5 mg Tablet 2.5 mg PO BID 14 Days Qty: 28 RF: 0 Continued Centrum Silver Men 300-600-300 mcg tablet 1 tab PO DAILY RF: 0 aspirin [Adult Aspirin Regimen] 81 mg tablet,delayed release (DR/EC) 81 mg PO DAILY RF: 0 niacin 100 mg tablet 500 mg PO DAILY RF: 0 simvastatin 80 mg tablet 80 mg PO QPM Qty: 90 RF: 3 loratadine [Claritin] 10 mg tablet 10 mg PO DAILY PRN (Reason: allergy symptoms) Qty: 90 RF: 2 ascorbate calcium (vitamin C) 500 mg tablet 500 mg PO DAILY RF: 0 sdrxuxr-dxkhterww-xlca 333-133-5 mg tablet 1 tab PO DAILY RF: 0 cholecalciferol (vitamin D3) [Vitamin D3] 50 mcg (2,000 unit) Capsule 50 mcg PO DAILY RF: 0 miscellaneous medical supply Misc 1 ea miscellaneous DIRECTED Qty: 1 RF: 0 fenofibrate 54 mg tablet 54 mg PO DAILY Qty: 90 RF: 3 doxazosin [Cardura] 4 mg tablet 4 mg PO QDAY Qty: 90 RF: 3 Discontinued omega-3 fatty acids [Fish Oil Concentrate] 1,000 mg capsule 2,400 mg PO DAILY RF: 0 Referrals / Follow Up: Rin Du MD [Primary Care Provider] -
[2021-02-23 15:09] VITALS: BP 135/70; PULSE 72; RESP 17; TEMP 37.1; O2SAT 97
== END 2021-02-23 15:23 | disposition home or self-care (01) | DRG 470 ==
LOC: SDC 10:08 → MS3 16:06
PROVIDERS: Admitting Provider Orthopaedic Surgery; PCP Internal Medicine; Referring Provider Orthopaedic Surgery; Visit Provider Orthopaedic Surgery
PROC: 0SRD0JZ Replacement of Left Knee Joint with Synthetic Substitute, Open Approach (ICD-10-PCS; CPT 27447; principal; 2021-02-22 07:00)
DX: M17.12 Unilateral primary osteoarthritis, left knee (principal); I48.20 Chronic atrial fibrillation, unspecified; I10 Essential (primary) hypertension; E78.00 Pure hypercholesterolemia, unspecified; E78.1 Pure hyperglyceridemia; Z79.82 Long term (current) use of aspirin; Z79.899 Other long term (current) drug therapy
CPT/HCPCS: 36415; 73560; 80048; 82962; 82985; 83735; 85027; 85610; 85730; 86850; 86900; 86901; 87081; 88305; 88311; 93005; 97110; 97116; 97162; 97166; 97530; 97535; 97802; 99251; C1776; J7120; G0463; J0702; J2405; J3490

== ENCOUNTER → 2021-05-11 13:05 | Outpatient (CLI) | payer MEDICARE, OTHER, SELFPAY ==
[2021-05-11 15:00] LABS: Absolute Lymphocyte Count 1.74 X10^3/uL (0.83-4.51); Absolute Neutrophil Count 3.1 X10^3/uL (2.0-7.7); Basophil# 0.04 X10^3/uL; Basophil% 0.7 % (0-1); Eosinophil# 0.11 X10^3/uL; Hematocrit 42.3 % (40-54); Hemoglobin 13.9 g/dL (13.0-16.5); Lymphocyte # 1.74 X10^3/ul (0.83-4.51); Lymphocyte % 31.8 % (19-41); Mean Corp Hgb Conc 32.9 g/dL (32-36); Mean Corpuscular Volume 94.2 fL (80-94); Monocyte# 0.47 X10^3/uL; Monocyte% 8.6 % (0-10); NRBC Flagged by Analyzer 0 % (0-5); Neutrophil % 56.7 % (47-70); Platelet Count 222 K/mm3 (150-450); RBC Distribution Width CV 12.5 % (11.6-14.6); RBC Distribution Width SD 43.2 fl (35.1-43.9); Red Blood Count 4.49 M/mm3 (4.6-6.2); White Blood Count 5.5 K/mm3 (4.4-11.0)
[2021-05-11 15:12] LABS: Anion Gap 7 (5-15); BUN 19 mg/dL (7-18); BUN/Creat Ratio 15.4 RATIO (10-20); Calcium,Total 9.6 mg/dL (8.5-10.1); Chloride 108 mmol/L (98-107); Creatinine, Serum 1.23 mg/dL (0.70-1.30); EST Glomerular Filtration Rate 62 mL/min (>60); Est Glom Filt Rate - Afr Amer 75 mL/min (>60); Glucose 76 mg/dL (74-106); Potassium 3.9 mmol/L (3.5-5.1); Sodium Level 143 mmol/L (136-145)
== END ==
PROVIDERS: PCP Internal Medicine; Referring Provider Internal Medicine; Visit Provider Internal Medicine
DX: E78.5 Hyperlipidemia, unspecified (principal); I10 Essential (primary) hypertension
CPT/HCPCS: 36415; 80048; 85025

== ENCOUNTER 2021-09-16 09:00 | Outpatient (CLI) | payer MEDICARE, OTHER, SELFPAY ==
[2021-09-16 11:17] LABS: ALB/GLOB Ratio 1.2 RATIO (0.9-2.4); AST(SGOT) 15 U/L (15-37); Alanine Aminotransfer ALT/SGPT 28 U/L (16-61); Albumin, Serum 3.8 g/dL (3.2-5.0); Alkaline Phosphatase 77 U/L (45-117); Anion Gap 4 (5-15); BUN 20 mg/dL (7-18); BUN/Creat Ratio 14.3 RATIO (10-20); Chloride 108 mmol/L (98-107); Cholesterol 126 mg/dL (200); EST Glomerular Filtration Rate 53 mL/min (>60); Est Glom Filt Rate - Afr Amer 64 mL/min (>60); Globulin 3.2 g/dL (2.2-4.2); Glucose 91 mg/dL (74-106); High Density Lipoprotein 39 mg/dL; Sodium Level 140 mmol/L (136-145); Triglycerides 186 mg/dL; Very Low Density Lipoprotein 37 mg/dL (5-40)
== END 2021-09-16 23:59 | disposition home or self-care (01) ==
LOC: BIMLAB 09:01
PROVIDERS: PCP Internal Medicine; Referring Provider Internal Medicine; Visit Provider Internal Medicine
DX: E78.5 Hyperlipidemia, unspecified (principal)
CPT/HCPCS: 36415; 80053; 80061

== ENCOUNTER → 2021-09-29 | Outpatient (CLI) | payer MEDICARE, OTHER, SELFPAY ==
--- NOTE | 2021-09-29 12:51 | CDU_ITS ---
Reason For Study: left carotid bruit Rt. Velocities/BP Lt. Velocities/BP Prox CCA 96.9/16.0 cm/sec. Prox CCA 73.4/14.7 cm/sec. Mid CCA 85.2/18.6 cm/sec. Mid CCA 73.4/18.6 cm/sec. Dist CCA 72.1/13.4 cm/sec. Dist CCA 65.6/17.3 cm/sec. Prox ICA 100.8/17.3 cm/sec. Prox ICA 83.9/23.7 cm/sec. Mid ICA 76.0/14.7 cm/sec. Mid ICA 63.0/16.3 cm/sec. Dist ICA 83.8/21.3 cm/sec. Dist ICA 94.9/29.8 cm/sec. Rt. ICA/CCA = 1.2. Lt. ICA/CCA = 1.3. Prox ECA 77.3/9.5 cm/sec. Prox ECA 412.3/32.6 cm/sec. Rt. Vert. 35.6/9.5 cm/sec. Lt. Vert. 50.7/11.4 cm/sec. Right Extracranial There is intimal thickening but no significant atherosclerotic plaque noted in the right common carotid artery. There is heterogeneous, irregular atherosclerotic plaque noted in the right internal carotid artery. There is intimal thickening but no significant atherosclerotic plaque noted in the right external carotid artery. Antegrade flow is noted in the right vertebral artery. Left Extracranial There is intimal thickening but no significant atherosclerotic plaque noted in the left common carotid artery. There is heterogeneous, irregular atherosclerotic plaque noted in the left internal carotid artery. There is heterogeneous, irregular atherosclerotic plaque noted in the left external carotid artery. Antegrade flow is noted in the left vertebral artery. Procedure Carotid Duplex 25270. This is a Carotid Duplex examination using B-mode, color flow and specral Doppler. The exam was diagnostic. Exam performed in department. VL/Carotid Duplex Ultrasound Interpretation Summary Irregular calcific plaque with shadowing at the proximal right internal carotid artery with less than 50% stenosis Less than 50% stenosis right external carotid artery Irregular calcific plaque with shadowing at the proximal left internal carotid artery with less than 50% stenosis Greater than 50% stenosis left external carotid artery Patent and antegrade vertebral arteries bilaterally Ordering Physician: Rin Du Performed By: Liang Wellington RVT
== END | disposition home or self-care (01) ==
LOC: CVS 12:50
PROVIDERS: PCP Internal Medicine; Referring Provider Internal Medicine; Visit Provider Internal Medicine
DX: I65.23 Occlusion and stenosis of bilateral carotid arteries (principal); R09.89 Other specified symptoms and signs involving the circulatory and respiratory systems
CPT/HCPCS: 93880

== ENCOUNTER → 2022-03-23 | Outpatient (CLI) | payer MEDICARE, OTHER, SELFPAY ==
[2022-03-23 12:18] LABS: Absolute Neutrophil Count 2.5 X10^3/uL (2.0-7.7); Basophil# 0.02 X10^3/uL; Basophil% 0.4 % (0-1); Eosinophil# 0.15 X10^3/uL; Eosinophils% 3.3 % (0-5); Hematocrit 40.4 % (40-54); Hemoglobin 13.8 g/dL (13.0-16.5); Lymphocyte % 33.2 % (19-41); Mean Corp Hgb Conc 34.2 g/dL (32-36); Mean Corpuscular Hgb 32.2 pg (27.0-32.0); Mean Corpuscular Volume 94.2 fL (80-94); Mean Platelet Vol. 10.1 fl (6.2-12.0); Monocyte# 0.35 X10^3/uL; Monocyte% 7.7 % (0-10); NRBC Flagged by Analyzer 0 % (0-5); Neutrophil # 2.49 X10^3/uL (2.7-7.7); Neutrophil % 55.2 % (47-70); Platelet Count 193 K/mm3 (150-450); RBC Distribution Width CV 12.4 % (11.6-14.6); RBC Distribution Width SD 42.5 fl (35.1-43.9); Red Blood Count 4.29 M/mm3 (4.6-6.2); White Blood Count 4.5 K/mm3 (4.4-11.0)
[2022-03-23 13:13] LABS: ALB/GLOB Ratio 1.1 RATIO (0.9-2.4); AST(SGOT) 17 U/L (15-37); Alanine Aminotransfer ALT/SGPT 27 U/L (16-61); Albumin, Serum 3.7 g/dL (3.2-5.0); Alkaline Phosphatase 69 U/L (45-117); Anion Gap 8 (5-15); BUN 23 mg/dL (7-18); BUN/Creat Ratio 16.9 RATIO (10-20); Calcium,Total 9.2 mg/dL (8.5-10.1); Chloride 110 mmol/L (98-107); Cholesterol 145 mg/dL (200); Creatinine, Serum 1.36 mg/dL (0.70-1.30); EST Glomerular Filtration Rate 55 mL/min (>60); Est Glom Filt Rate - Afr Amer 66 mL/min (>60); Globulin 3.4 g/dL (2.2-4.2); Glucose 90 mg/dL (74-106); High Density Lipoprotein 35 mg/dL; Potassium 4.1 mmol/L (3.5-5.1); Protein, Total 7.1 g/dL (6.4-8.2); Sodium Level 142 mmol/L (136-145); Triglycerides 267 mg/dL; Very Low Density Lipoprotein 53 mg/dL (5-40)
== END | disposition home or self-care (01) ==
LOC: BIMLAB 10:00
PROVIDERS: PCP Internal Medicine; Visit Provider Internal Medicine
DX: E78.5 Hyperlipidemia, unspecified (principal); I10 Essential (primary) hypertension; Z12.5 Encounter for screening for malignant neoplasm of prostate; N40.0 Benign prostatic hyperplasia without lower urinary tract symptoms
CPT/HCPCS: 36415; 80053; 80061; 84153; 85025; G0103

== ENCOUNTER → 2022-09-12 | Outpatient (CLI) | payer MEDICARE, OTHER, SELFPAY ==
--- NOTE | 2022-09-12 13:56 | CDU_ITS ---
Reason For Study: Carotid Stenosis Rt. Velocities/BP Lt. Velocities/BP Prox CCA 99.8/15.1 cm/sec. Prox CCA 90.0/21.1 cm/sec. Mid CCA 71.1/14.5 cm/sec. Mid CCA 68.3/16.3 cm/sec. Dist CCA 59.3/9.5 cm/sec. Dist CCA 60.7/19.2 cm/sec. Prox ICA 69.6/16.8 cm/sec. Prox ICA 92.7/23.4 cm/sec. Mid ICA 87.2/20.1 cm/sec. Mid ICA 62.2/20.3 cm/sec. Dist ICA 68.5/20.1 cm/sec. Dist ICA 55.3/14.3 cm/sec. Rt. ICA/CCA = 1.2. Lt. ICA/CCA = 1.4. Prox ECA 94.9/12.4 cm/sec. Prox ECA 483.2/45.9 cm/sec. Rt. Vert. 42.1/10.7 cm/sec. Lt. Vert. 47.9/11.6 cm/sec. Right Extracranial There is homogeneous, smooth atherosclerotic plaque noted in the right common carotid artery. There is heterogeneous, irregular atherosclerotic plaque noted in the right internal carotid artery. There is heterogeneous, irregular atherosclerotic plaque noted in the right external carotid artery. Antegrade flow is noted in the right vertebral artery. Left Extracranial There is homogeneous, smooth atherosclerotic plaque noted in the left common carotid artery. There is heterogeneous, irregular atherosclerotic plaque noted in the left internal carotid artery. There is heterogeneous, irregular atherosclerotic plaque noted in the left external carotid artery. Antegrade flow is noted in the left vertebral artery. Procedure Carotid Duplex 59111. This is a Carotid Duplex examination using B-mode, color flow and specral Doppler. The exam was diagnostic. Exam performed in department. VL/Carotid Duplex Ultrasound Interpretation Summary Irregular calcific plaque with shadowing at the proximal right internal carotid artery with less than 50% stenosis Less than 50% stenosis right external carotid artery Extensive calcific plaque with shadowing at the proximal left internal carotid artery with less than 50% stenosis Greater than 50% stenosis left external carotid artery Patent and antegrade vertebral arteries bilaterally Findings are similar to the previous examination of September 29, 2021 Ordering Physician: Elmer Curry Referring Physician: Rin Du Performed By: Corey Méndez RVT
== END | disposition home or self-care (01) ==
LOC: CVS 13:53
PROVIDERS: PCP Internal Medicine; Referring Provider Surgery; Visit Provider Surgery
DX: I65.22 Occlusion and stenosis of left carotid artery (principal)
CPT/HCPCS: 93880

== ENCOUNTER → 2022-09-19 | Outpatient (CLI) | payer MEDICARE, OTHER, SELFPAY ==
[2022-09-19 13:12] LABS: Cholesterol 162 mg/dL (200); High Density Lipoprotein 43 mg/dL; Triglycerides 226 mg/dL; Very Low Density Lipoprotein 45 mg/dL (5-40)
== END | disposition home or self-care (01) ==
LOC: BIMLAB 09:39
PROVIDERS: PCP Internal Medicine; Referring Provider Internal Medicine; Visit Provider Internal Medicine
DX: E78.5 Hyperlipidemia, unspecified (principal)
CPT/HCPCS: 36415; 80061

== ENCOUNTER 2023-02-12 10:28 | Observation (INO) | payer MEDICARE, OTHER, SELFPAY ==
[2023-02-12 10:29] VITALS: BP 145/56; PULSE 60; RESP 15; TEMP 36.3; O2SAT 96
--- NOTE | 2023-02-12 10:30 | CT_ITS ---
EXAM: CT HEAD WITHOUT INTRAVENOUS CONTRAST CLINICAL INDICATION: Neuro deficit, acute, stroke suspected TECHNIQUE: Multiple axial images were obtained of the head without intravenous contrast. This CT exam was performed using one or more of the following dose reduction techniques: automated exposure control, adjustment of the mA and/or kV according to patient size, and/or use of iterative reconstruction technique. COMPARISON: No relevant prior studies available. FINDINGS: BRAIN AND EXTRA-AXIAL SPACES: Normal. No intra- or extra-axial hemorrhage. No acute infarct. No intracranial mass or mass effect. There is preservation of the slater/white matter interface. Posterior fossa structures are unremarkable. Ventricles are appropriate for age. No hydrocephalus. Basal cisterns are patent. BONES/JOINTS: No suspicious lytic or blastic abnormality. SINUSES: No acute sinusitis. MASTOID AIR CELLS: Normal. Clear. CT/STROKE Brain/Head without Cont IMPRESSION: No acute intracranial abnormality. Aspect score 10. N.B. : The above Results were Read Back by Pedro Ocoha MD to Noel Banegas MD, and understanding confirmed on 02/12/2023 10:50:22 (ET). Electronically Signed: Pedro Ochoa MD at 10:51 EDT ,
--- NOTE | 2023-02-12 10:30 | RAD_ITS ---
EXAM: XR CHEST, 1 VIEW CLINICAL INDICATION: Neuro deficit, acute, stroke suspected TECHNIQUE: Frontal view of the chest. COMPARISON: No relevant prior studies available. FINDINGS: LUNGS AND PLEURAL SPACES: Normal. No consolidation or edema. No pneumothorax. No effusion. HEART: Normal heart size. MEDIASTINUM: No mediastinal or hilar mass. BONES/JOINTS: No acute abnormality. RAD/Chest 1 View IMPRESSION: No acute cardiopulmonary disease. Electronically Signed: Pedro Ochoa MD at 12:04 EDT ,
--- NOTE | 2023-02-12 10:30 | EKG12_ITS ---
Test Reason : STROKE ALERT Blood Pressure : / mmHG Vent. Rate : 062 BPM Atrial Rate : 062 BPM P-R Int : 196 ms QRS Dur : 078 ms QT Int : 410 ms P-R-T Axes : 029 060 052 degrees QTc Int : 416 ms Normal sinus rhythm Normal ECG Confirmed by TEDDY GARCIA, MARIOLA ([id number]), society editor SARAI LIM ([id number]) on 02/14/2023 10:52:44 AM Referred By: Confirmed By:MARIOLA ESPINAL MD
--- NOTE | 2023-02-12 10:31 | CT_ITS ---
INDICATION: Neuro deficit, acute, stroke suspected -- Problem with balance and walking EXAMINATION: CTA HEAD - CTA Head and Neck Stroke W/ Contrast (and W/O if performed) TECHNIQUE: [place]/head CT angiogram protocol was performed following IV contrast. Routine carotid CT angiogram protocol was performed without and with IV contrast. NASCET criteria using the distal ICAs for comparison were used for evaluation of stenoses. 3D reconstructions were reviewed of the CT angiogram head and neck. A radiation dose optimization technique was used for this scan. IV Contrast dosage and agent: 100 cc [id number] COMPARISON: None. FINDINGS: --Anterior cerebral circulation: ACAs: Congenitally small right A1 segment. Both ACAs fill predominantly via the left A1 segment. No significant stenosis at the visualized segments. ACOM: Present. MCAs: No significant stenosis at the visualized segments. --Posterior cerebral circulation: PCOMs: Present bilaterally. aircraft worker: No significant stenosis at the visualized segments. BASILAR ARTERY: No significant stenosis. --Carotid and vertebral circulation: AORTIC ARCH AND BRANCHES: Normal anatomy, patent. RIGHT CCA: No occlusion, significant stenosis or dissection. RIGHT ICA: Prominent calcific plaquing at the bulb resulting in approximately 50% stenosis at the origin of the right ICA. LEFT CCA: No occlusion, significant stenosis or dissection. LEFT ICA: Prominent calcific plaquing at the carotid bulb resulting in less than 50% stenosis at the origin of the left ICA. RIGHT VERTEBRAL ARTERY: Approximately 50% stenosis at the origin of the right vertebral artery. LEFT VERTEBRAL ARTERY: Tortuosity of the proximal segment without stenosis or dissection. NECK SOFT TISSUES: Unremarkable. LUNG APICES: Clear. BONES: Unremarkable. CT/STROKE CTA Head AND Neck W/Con IMPRESSION: Narrowing of both ICAs and right vertebral artery without critical stenosis or occlusion. Intact intracranial vessels. N.B. : The above Results were Read Back by Pedro Ochoa MD to Noel Banegas MD, and understanding confirmed on 02/12/2023 11:06:31 (ET). Electronically Signed: Pedro Ochoa MD at 11:11 EDT ,
--- NOTE | 2023-02-12 10:37 | ED.VIS.STROK ---
HPI History of Present Illness Chief Complaint: Dizziness Detail of Chief Complaint: Balance off Informant: patient and spouse/S.O. Onset/Context/Timing Onset: - (Last known well 2299February 11) Context: Sudden Onset (Presumed) Timing: Continuous Quality and Location: Positive for Difficulty with Ambulation Onset: Last known well at 2299February 11 Associated Symptoms Associated Symptoms: Positive for Headache; Negative for Nausea, Vomiting or Chest Pain Narrative Narrative: Patient is a 72-year-old male with history of hypercholesterolemia, and carotid disease per history who had 2 episodes of dizziness over the past 2 weeks. He went to bed last evening at 2300. He awoke this morning with symptoms. Is having trouble with balance and dizziness which he describes as his balance being off. He denies any ocular or visual symptoms. In light of this history and patient's age stroke team was initiated from triage. Order set was initiated. Will complete history once patient returns from radiology suite Prior similar symptoms: Yes Recent Illness/Hospitalization: No PFSH PFS Medical History Ambulates with cane Arthritis BPH (benign prostatic hyperplasia) Cancer Carotid artery stenosis Elbow joint stiffness, bilateral Essential hypertension History of basal cell carcinoma History of pain when walking History of skin cancer History of squamous cell carcinoma Knee pain Left knee DJD Non-smoker Paroxysmal atrial fibrillation Seasonal allergies Shoulder pain Wears glasses Home Medications tfkjeisf-nw-nqoru 300 mcg-K 60 mcg-lycop 600 mcg-lutein 300 mcg tablet (Centrum Silver Men) 1 tab PO DAILY 09/29/19 [History Last Taken 02/21/21 20:00] niacin 100 mg tablet 500 mg PO DAILY 11/12/20 [History Last Taken 02/21/21 20:00] nvuqgiu-cpirngkgg-knva 333 mg-133 mg-5 mg tablet 1 tab PO DAILY 01/28/21 [History Last Taken 02/21/21 20:00] cholecalciferol (vitamin D3) 50 mcg (2,000 unit) capsule (Vitamin D3) 50 mcg PO DAILY 02/08/21 [History Last Taken 02/21/21 20:00] acetaminophen 500 mg oral powder packet (Tylenol Extra Strength) 500 mg PO Q6H PRN 04/04/21 [History Last Taken Unknown] ascorbate calcium (vitamin C) 500 mg tablet 1 g PO DAILY 11/02/21 [History Last Taken Unknown] ibuprofen 400 mg tablet 600 mg PO BID PRN 03/28/22 [History Last Taken Unknown] omega 7-ykz-tws-fish oil 1,200 mg (144 mg-216 mg) capsule (Fish Oil) 2 cap PO DAILY 03/28/22 [History Last Taken Unknown] aspirin 81 mg tablet,delayed release 81 mg PO DAILY 08/10/22 [History Last Taken Unknown] simvastatin 80 mg tablet 80 mg PO QPM #90 tabs 11/10/22 [Rx Last Taken Unknown] doxazosin 4 mg tablet (Cardura) 4 mg PO QDAY #90 tabs 02/06/23 [Rx Last Taken Unknown] fenofibrate 54 mg tablet 54 mg PO DAILY #90 tabs 02/06/23 [Rx Last Taken Unknown] loratadine 10 mg tablet (Claritin) 10 mg PO DAILY PRN allergy symptoms #90 tabs 02/06/23 [Rx Last Taken Unknown] Allergy/AdvReac Type Severity Reaction Status Date / Time diazepam AdvReac Severe hallucinati Verified 01/22/23 14:08 ons oxycodone AdvReac Severe hallucinati Verified 01/22/23 14:08 ons Family History Father Heart disease COPD (chronic obstructive pulmonary disease) Brother Cancer melanoma Mother Paroxysmal atrial fibrillation Surgical History History of basal cell carcinoma excision History of cardiac radiofrequency ablation (RFA) (02/2019) History of eyelid surgery Hx of basal cell carcinoma excision Hx of colonoscopy Hx of laminectomy Status post repair of anterior cruciate ligament Social History Smoking Status: Former smoker how long ago did patient quit smokin alcohol intake: current alcohol intake frequency: 0-2 drinks per day Alcohol type: beer details: rarely, social substance use type: does not use caffeine: Yes Type: carbonated beverages what type of physical activity do you participate in: walking frequency: daily ROS ROS ED Constitutional Constitutional ED: Denies chills, fever(s), subjective, sweats or weakness Eyes Eyes: Denies blurry vision, change in vision or diplopia ENT ENT ED: Denies ear pain, rhinorrhea or sore throat Cardiovascular Cardiovascular: Denies chest pain, palpitations, paroxysmal nocturnal dyspnea or racing heartbeat Respiratory/Chest Respiratory/Chest: Denies cough, dyspnea, dyspnea on exertion or paroxysmal nocturnal dyspnea Gastrointestinal Gastrointestinal: Denies abdominal pain, nausea or vomiting Musculoskeletal Musculoskeletal: Denies arthralgias, back pain, myalgias or neck pain Integumentary Denies rash Neurologic Neurologic: Reports headache(s); Denies paresthesias or weakness Psychiatric Psychiatric: Denies anxiety or depression Hematologic/Lymphatic Hematologic/Lymphatic: Denies easy bleeding or easy bruising EXAM Physical Exam Const Vital Signs: 02/12/23 10:29 02/12/23 10:39 02/12/23 10:48 Temperature 97.3 F L Temperature Source Temporal Pulse Rate 60 72 Respiratory Rate 15 14 Blood Pressure 145/56 H 133/62 H Blood Pressure Mean 85 85 Pulse Ox 96 99 Oxygen Delivery Method Room Air Room Air Room Air Positive well nourished and well developed General Appearance ED: well developed and NAD HEENT Reports moist mucous membranes atraumatic Nose: other Other Details: Nares are patent. Posterior pharynx normal. Eyes PERRL and EOMs intact bilaterally Eyes Narrative: There is no nystagmus. Neck no lymphadenopathy, supple and no JVD Chest Wall inspection of chest normal and palpation of chest normal Resp normal respiratory effort and clear to auscultation bilaterally Cardio no murmurs Rate: regular rate Rhythm: regular rhythm Heart Sounds: S1 normal and S2 normal GI normal to inspection, nondistended, normoactive bowel sounds, soft to palpation, non-tender and non-distended Extremity normal to inspection Neuro oriented x3, CN's II-XII intact bilaterally and no sensory deficits noted Brianne Coma Scale: document GCS findings Spontaneous Obeys Commands Oriented 15 Sensorium / Orientation: alert Motor Exam: strength 5/5 throughout Psych mental status grossly normal Skin no wounds Lesions: no lesions Rashes: no rashes NIHSS NIHSS Initial: 1a Level of Consciousness: 0 1b LOC Questions (Score 2 if aphasic/stupor): 0 1c LOC Commands (Only score 1st attempt): 0 2 Best Gaze (If aphasic, use reflexive mvmts.): 0 3 Visual: 0 (Patient reported fussiness right visual field) 4 Facial Palsy: 0 5 Motor Arm Right (UN = amputation/fusion): 0 5 Motor Arm Left: 0 6 Motor Leg Right: 0 6 Motor Leg Left: 0 7 Limb ataxia (Only + if out of proportion): 0 8 Sensory (Aphasia/stupor=0 or 1, coma=2): 0 9 Best Language: 0 10 Dysarthria (mute, coma=2, intubated=UN): 0 11 Extinction and Inattention (only scored if +): 0 Total Score: 0 MDM MDM MDM Narrative Medical decision making narrative: Throat team was called from triage. Patient has vertigo and problems with balance. He also complains of blurred vision right visual field. 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 CT of the head without contrast and CTA of the head neck was obtained to assess patient's vasculature. I did receive a call from radiologist and the unenhanced scan is normal. I have received a call at approximately 1050 History & Record Review Discussion w/independent historian: Patient and Significant other Lab Data Attestation: I reviewed the patient's lab results. Lab results narrative: CBC is unremarkable. Labs: Laboratory Results - last 24 hr 02/12/23 02/12/23 10:30 10:46 WBC 4.3 L RBC 4.42 L Hgb 14.2 Hct 42.6 MCV 96.4 H MCH 32.1 H MCHC 33.3 RDW Std Deviation 43.0 RDW Coeff of Uriel 12.2 Plt Count 180 MPV 9.5 Immature Gran % (Auto) 0.200 Neut % (Auto) 59.1 Lymph % (Auto) 32.2 Towns % (Auto) 6.9 Eos % (Auto) 1.4 Baso % (Auto) 0.2 Absolute Neuts (auto) 2.6 Absolute Lymphs (auto) 1.39 Nucleated RBC % 0 PT 14.1 INR 1.1 APTT 29.7 Sodium 140 Potassium 4.0 Chloride 110 H Carbon Dioxide 26.0 Anion Gap 4 L BUN 24 H Creatinine 1.44 H Estim Creat Clear Calc 47.88 Est GFR (MDRD) Af Amer 62 Est GFR (MDRD) Non-Af 51 L BUN/Creatinine Ratio 16.7 Glucose 109 H Calcium 9.2 Troponin I High Sens 9 POC Glucose 128 H Radiography Diagnostic Testing: Clinical Impression(s) from Imaging Studies Brain CT 02/12/23 10:30 IMPRESSION: No acute intracranial abnormality. Aspect score 10. N.B. : The above Results were Read Back by Pedro Ochoa MD to Noel Banegas MD, and understanding confirmed on 02/12/2023 10:50:22 (ET). Electronically Signed: Pedro Ochoa MD at 10:51 EDT , ADDENDUM: 02/12/23 1058 IMPRESSION: No acute intracranial abnormality. Aspect score 10. N.B. : The above Results were Read Back by Pedro Ochoa MD to Noel Banegas MD, and understanding confirmed on 02/12/2023 10:50:22 (ET). Electronically Signed: Pedro Ochoa MD at 10:51 EDT , Chest X-Ray 02/12/23 10:30 IMPRESSION: No acute cardiopulmonary disease. Electronically Signed: Pedro Ochoa MD at 12:04 EDT , Head/Neck CTA 02/12/23 10:31 IMPRESSION: Narrowing of both ICAs and right vertebral artery without critical stenosis or occlusion. Intact intracranial vessels. N.B. : The above Results were Read Back by Pedro Ochoa MD to Noel Banegas MD, and understanding confirmed on 02/12/2023 11:06:31 (ET). Electronically Signed: Pedro Ochoa MD at 11:11 EDT , ADDENDUM: 02/12/23 1118 IMPRESSION: Narrowing of both ICAs and right vertebral artery without critical stenosis or occlusion. Intact intracranial vessels. N.B. : The above Results were Read Back by Pedro Ochoa MD to Noel Banegas MD, and understanding confirmed on 02/12/2023 11:06:31 (ET). Electronically Signed: Pedro Ochoa MD at 11:11 EDT , EKG Initial EKG: Attestation: I personally reviewed and interpreted this EKG as follows: Interpretation: Sinus Rhythm (Rate is 62. EKG is normal. MS interval is 196 ms per cures duration 78 ms. QT duration 410 ms. [place] is normal.) Management Discussion w/another healthcare provider: Hospitalist (For admission to PCU observation and order appropriate TIA work-up) and Real Property Evaluator (Spoke with the neurologist at [facility]. She recommends MRI. MRI to rule out benign positional vertigo atypical presentation versus vertebrobasilar insufficiency.) Discharge Plan Triage Chief Complaint: Dizziness ED Provider: Noel Banegas Dx/Rx/DC Orders Clinical Impression: Carotid artery stenosis, Essential hypertension, Hyperlipemia, Coordination problem Primary Care Provider: Rin Du Disposition Disposition: Home, Self Care Discharge Date/Time: 02/12/23 12:52
[2023-02-12 10:45] LABS: Absolute Lymphocyte Count 1.39 X10^3/uL (0.83-4.51); Absolute Neutrophil Count 2.6 X10^3/uL (2.0-7.7); Basophil# 0.01 X10^3/uL; Basophil% 0.2 % (0-1); Eosinophil# 0.06 X10^3/uL; Eosinophils% 1.4 % (0-5); Hematocrit 42.6 % (40-54); Hemoglobin 14.2 g/dL (13.0-16.5); Lymphocyte # 1.39 X10^3/ul (0.83-4.51); Lymphocyte % 32.2 % (19-41); Mean Corp Hgb Conc 33.3 g/dL (32-36); Mean Corpuscular Hgb 32.1 pg (27.0-32.0); Mean Corpuscular Volume 96.4 fL (80-94); Mean Platelet Vol. 9.5 fl (6.2-12.0); Monocyte% 6.9 % (0-10); NRBC Flagged by Analyzer 0 % (0-5); Neutrophil # 2.55 X10^3/uL (2.7-7.7); Neutrophil % 59.1 % (47-70); Platelet Count 180 K/mm3 (150-450); RBC Distribution Width CV 12.2 % (11.6-14.6); Red Blood Count 4.42 M/mm3 (4.6-6.2); White Blood Count 4.3 K/mm3 (4.4-11.0)
[2023-02-12 10:47] VITALS: BMI 29.9
[2023-02-12 10:48] VITALS: BP 133/62; PULSE 72; RESP 14; O2SAT 99
[2023-02-12 11:03] LABS: Anion Gap 4 (5-15); BUN 24 mg/dL (7-18); BUN/Creat Ratio 16.7 RATIO (10-20); Calcium,Total 9.2 mg/dL (8.5-10.1); Chloride 110 mmol/L (98-107); Creatinine, Serum 1.44 mg/dL (0.70-1.30); EST Glomerular Filtration Rate 51 mL/min (>60); Est Glom Filt Rate - Afr Amer 62 mL/min (>60); Estimated Creatinine Clearance 47.88 ml/min; Glucose 109 mg/dL (74-106); Sodium Level 140 mmol/L (136-145); Troponin-I HS 9 pg/mL (3.0-78.0)
[2023-02-12 11:05] LABS: Bedside Glucose 128 mg/dL (74-106)
--- NOTE | 2023-02-12 11:10 | ED.RN ---
PER DR THOMPSON, RUST CANCELLED AT THIS TIME
[2023-02-12 11:20] LABS: International Normalized Ratio 1.1; Prothrombin Time (Protime)PT. 14.1 SECONDS (11.7-14.9)
[2023-02-12 11:21] LABS: Partial Thromboplast Time 29.7 Seconds (24.1-36.2)
--- NOTE | 2023-02-12 12:12 | HP.PCM.HOS_ITS ---
HPI - General General Date of Admission: 02/12/23 Date of Service: 02/12/23 Chief Complaint: CVA rule out HPI Narrative TAMIKO RICH, is a 72 M with history of bilateral carotid artery stenosis, hyperlipidemia, hypertension, paroxysmal A-fib s/p ablation in 2019 and BPH who presented to [facility] on 02/12/2023 with worsening dizziness. Patient seen at bedside, and daughter present. Patient sitting comfortably in bed, conversing normally, no acute distress. Patient states that the dizziness started this morning for him and has now persisted for about 4 to 5 hours. Reports that he currently feels moderately dizzy with certain movements of his head. He has had some dizziness in the past but never anything like this. States he gets dizzy at home sometimes when getting out of bed at night to go to the bathroom. Sometimes has mild dizziness with going from sitting to standing as well. Has notably been on the same dose of doxazosin for many years. He denies any recent trauma. Denies any recent upper respiratory infections. Denies any ear pain or discomfort. Denies any vision changes. Denies any eye pain. Denies any weakness or sensory changes of the upper or lower extremities. Denies any weakness or sensory changes of the face. Has been taking all home medications as prescribed. No other acute concerns at this time. Vital stable in the ED. Labs unremarkable. CT brain with no intracranial abnormalities. CTA head/neck shows narrowing of both ICAs and right vertebral artery without critical stenosis or occlusion. Chest x-ray nonacute. [facility] Medical History Ambulates with cane Arthritis BPH (benign prostatic hyperplasia) Cancer Carotid artery stenosis Elbow joint stiffness, bilateral Essential hypertension History of basal cell carcinoma History of pain when walking History of skin cancer History of squamous cell carcinoma Knee pain Left knee DJD Non-smoker Paroxysmal atrial fibrillation Seasonal allergies Shoulder pain Wears glasses Home Medications humajivy-sk-ecnmo 300 mcg-K 60 mcg-lycop 600 mcg-lutein 300 mcg tablet (Centrum Silver Men) 1 tab PO DAILY 09/29/19 [History Last Taken 02/21/21 20:00] niacin 100 mg tablet 500 mg PO DAILY 11/12/20 [History Last Taken 02/21/21 20:00] wspxgis-meaxgvilz-bkvy 333 mg-133 mg-5 mg tablet 1 tab PO DAILY 01/28/21 [History Last Taken 02/21/21 20:00] cholecalciferol (vitamin D3) 50 mcg (2,000 unit) capsule (Vitamin D3) 50 mcg PO DAILY 02/08/21 [History Last Taken 02/21/21 20:00] acetaminophen 500 mg oral powder packet (Tylenol Extra Strength) 500 mg PO Q6H PRN 04/04/21 [History Last Taken Unknown] ascorbate calcium (vitamin C) 500 mg tablet 1 g PO DAILY 11/02/21 [History Last Taken Unknown] ibuprofen 400 mg tablet 600 mg PO BID PRN 03/28/22 [History Last Taken Unknown] omega 1-ikc-jgz-fish oil 1,200 mg (144 mg-216 mg) capsule (Fish Oil) 2 cap PO DAILY 03/28/22 [History Last Taken Unknown] aspirin 81 mg tablet,delayed release 81 mg PO DAILY 08/10/22 [History Last Taken Unknown] simvastatin 80 mg tablet 80 mg PO QPM #90 tabs 11/10/22 [Rx Last Taken Unknown] doxazosin 4 mg tablet (Cardura) 4 mg PO QDAY #90 tabs 02/06/23 [Rx Last Taken Unknown] fenofibrate 54 mg tablet 54 mg PO DAILY #90 tabs 02/06/23 [Rx Last Taken Unknown] loratadine 10 mg tablet (Claritin) 10 mg PO DAILY PRN allergy symptoms #90 tabs 02/06/23 [Rx Last Taken Unknown] Allergy/AdvReac Type Severity Reaction Status Date / Time diazepam AdvReac Severe hallucinati Verified 01/22/23 14:08 ons oxycodone AdvReac Severe hallucinati Verified 01/22/23 14:08 ons Family History Father Heart disease COPD (chronic obstructive pulmonary disease) Brother Cancer melanoma Mother Paroxysmal atrial fibrillation Surgical History History of basal cell carcinoma excision History of cardiac radiofrequency ablation (RFA) (02/2019) History of eyelid surgery Hx of basal cell carcinoma excision Hx of colonoscopy Hx of laminectomy Status post repair of anterior cruciate ligament Social History Smoking Status: Former smoker how long ago did patient quit smokin alcohol intake: current alcohol intake frequency: 0-2 drinks per day Alcohol type: beer details: rarely, social substance use type: does not use caffeine: Yes Type: carbonated beverages what type of physical activity do you participate in: walking frequency: daily ROS Constitutional Constitutional: Denies chills, fever(s) or weakness Eyes Eyes: Denies blurry vision or change in vision ENT HEENT: Denies abnormal hearing or ear pain Cardiovascular Cardiovascular: Denies chest pain or dyspnea on exertion Respiratory/Chest Respiratory/Chest: Denies cough Gastrointestinal Gastrointestinal: Denies abdominal pain Neurologic Neurologic: Reports dizziness; Denies abnormal gait, abnormal speech, confusion, focal weakness, headache(s), numbness, paresthesias or syncope Vital Signs Vital Signs Vital Signs: 02/12/23 10:29 02/12/23 10:39 02/12/23 10:48 Temperature 97.3 F L Temperature Source Temporal Pulse Rate 60 72 Respiratory Rate 15 14 Blood Pressure 145/56 H 133/62 H Blood Pressure Mean 85 85 Pulse Ox 96 99 Oxygen Delivery Method Room Air Room Air Room Air Weight Weight: 94.7 kg Body Mass Index (BMI) 29.9 Physical Exam Const alert, oriented x3, no apparent distress, average body habitus, healthy a ppearing and well nourished Constitutional Narrative: Pleasant elderly male, sitting comfortably in bed, conversing normally, no acute distress. General Appearance: cooperative, comfortable, well kempt and well developed HEENT normocephalic, head/scalp atraumatic, hearing grossly normal bilaterally, nasal mucous membranes and turbinates normal and moist oral mucous membranes Eyes PERRL, EOMs intact bilaterally and conjunctivae normal Neck full ROM, no lymphadenopathy and supple Lymph Lymphatic: no lymphadenopathy noted Chest inspection of chest normal Resp normal respiratory effort, normal air movement, no use of accessory muscles and clear to auscultation bilaterally Cardio regular rate, regular rhythm, no murmurs and peripheral pulses 2+ throughout GI normal to inspection, nondistended, normoactive bowel sounds, soft to palpation, non-tender and non-distended Back/Spine normal ROM Extremity normal to inspection, full ROM and no pedal edema Skin no rashes or lesions noted Neuro oriented x3 Neuro Narrative: Patient notes dizziness with movement of head in multiple directions, however no overt neurologic changes noted on exam. Sensorium / Orientation: awake and alert Speech: speech normal Motor Exam: strength 5/5 throughout Psych mental status grossly normal Results Lab / Micro Data 02/12/23 10:30 02/12/23 10:30 Labs: Laboratory Results - last 24 hr 02/12/23 10:30: WBC 4.3 L, RBC 4.42 L, Hgb 14.2, Hct 42.6, MCV 96.4 H, MCH 32.1 H, MCHC 33.3, RDW Std Deviation 43.0, RDW Coeff of Uriel 12.2, Plt Count 180, MPV 9.5, Immature Gran % (Auto) 0.200, Neut % (Auto) 59.1, Lymph % (Auto) 32.2, [place] % (Auto) 6.9, Eos % (Auto) 1.4, Baso % (Auto) 0.2, Absolute Neuts (auto) 2.6, Absolute Lymphs (auto) 1.39, Nucleated RBC % 0, PT 14.1, INR 1.1, APTT 29.7, Sodium 140, Potassium 4.0, Chloride 110 H, Carbon Dioxide 26.0, Anion Gap 4 L, BUN 24 H, Creatinine 1.44 H, Estim Creat Clear Calc 47.88, Est GFR (MDRD) Af Amer 62, Est GFR (MDRD) Non-Af 51 L, BUN/Creatinine Ratio 16.7, Glucose 109 H, Calcium 9.2, Troponin I High Sens 9 02/12/23 10:46: POC Glucose 128 H Radiology Impression Brain CT 02/12/23 10:30 IMPRESSION: No acute intracranial abnormality. Aspect score 10. N.B. : The above Results were Read Back by Pedro Ochoa MD to Noel Banegas MD, and understanding confirmed on 02/12/2023 10:50:22 (ET). Electronically Signed: Pedro Ochoa MD at 10:51 EDT , ADDENDUM: 02/12/23 1058 IMPRESSION: No acute intracranial abnormality. Aspect score 10. N.B. : The above Results were Read Back by Pedro Ochoa MD to Noel Banegas MD, and understanding confirmed on 02/12/2023 10:50:22 (ET). Electronically Signed: Pedro Ochoa MD at 10:51 EDT , Chest X-Ray 02/12/23 10:30 IMPRESSION: No acute cardiopulmonary disease. Electronically Signed: Pedro Ochoa MD at 12:04 EDT , Head/Neck CTA 02/12/23 10:31 IMPRESSION: Narrowing of both ICAs and right vertebral artery without critical stenosis or occlusion. Intact intracranial vessels. N.B. : The above Results were Read Back by Pedro Ochoa MD to Noel Banegas MD, and understanding confirmed on 02/12/2023 11:06:31 (ET). Electronically Signed: Pedro Ochoa MD at 11:11 EDT , ADDENDUM: 02/12/23 1118 IMPRESSION: Narrowing of both ICAs and right vertebral artery without critical stenosis or occlusion. Intact intracranial vessels. N.B. : The above Results were Read Back by Pedro Ochoa MD to Noel Banegas MD, and understanding confirmed on 02/12/2023 11:06:31 (ET). Electronically Signed: Pedro Ochoa MD at 11:11 EDT , Assessment & Plan Assessment/Plan (1) Dizziness: PLAN: Plan Patient is a 72-year-old male with history of bilateral carotid artery stenosis, hyperlipidemia, hypertension, paroxysmal A-fib s/p ablation in 2019 and BPH who presented to [facility] on 02/12/2023 with worsening dizziness. 1. CVA rule out Have higher concern for BPPV, orthostatic hypotension or alternative less severe etiology at this point. However, patient does have risk factors for stroke. Has known bilateral carotid artery stenosis, follows with vascular surgery. Carotid ultrasound done in September 2022 showed greater than 50% stenosis of left external carotid artery, less than 50% stenosis of right external carotid artery, unchanged from carotid ultrasound from 2021. CTA head/neck on admit shows no acute changes and carotid stenosis as noted above. Has known hyperlipidemia, taking home medications as prescribed. Has history of A-fib with ablation in 2019, with no known recurrence since then. Notably had NIH score of 0 in ED. ?We will admit to observation bed in PCU. MRI brain without contrast ordered. Lipid panel, A1c, UA ordered. TTE ordered. PT/OT consulted. Check orthostatic vitals. No need for permissive hypertension at this time. Continue home aspirin, statin, fenofibrate and niacin. If work-up is negative, likely okay for discharge home tomorrow. 2. Bilateral carotid artery stenosis ? CTA head/neck on admission with no acute changes from previous findings on carotid ultrasound. No need for further work-up at this time. Continue medications for hyperlipidemia as below. Outpatient follow-up with vascular surgery as needed. 3. Hypertension ? Only on doxazosin 4 mg daily. Has been on this for many years. Reports s ymptoms that do seem somewhat consistent with orthostatic hypotension. Checking orthostatic vitals as above. Okay to continue doxazosin. 4. BPH ? Continue home doxazosin as above. 5. CKD ? Suspect due to hypertension. Baseline creatinine around 1.3-1.4, creatinine 1.4 on admission. No need to monitor further BMPs. 6. Hyperlipidemia ? Continue home statin, fenofibrate, niacin. 7. History of paroxysmal A-fib with ablation ? Had ablation done in 2019. No known recurrence of A-fib per patient and family. EKG with normal sinus rhythm on admit. TTE ordered as above. Monitor telemetry. DVT prophylaxis: Lovenox CODE STATUS: Full code Expected disposition: Home, 1 to 2 days Total clinical time spent by myself addressing the patient's medical issues, reviewing all the data, and collaborating with patient's care team: 55 minutes. Charges/Coding Visit Charges Inpatient E&M: 01437 Init Hosp L2
[2023-02-12 13:22] VITALS: BP 142/71; PULSE 53; RESP 16; TEMP 36.4; O2SAT 98; BMI 28.8
[2023-02-12 13:24] VITALS: BP 134/67; BP 139/76; BP 142/71; PULSE 53; PULSE 54; PULSE 63
--- NOTE | 2023-02-12 13:24 | ECHOD_ITS ---
Reason For Study: TIA/CVA Procedure This was a 2D Doppler, Color Flow transthoracic echocardiogram. Exam performed portable in patient room. Left Ventricle Normal LV size. Left ventricular systolic function is normal. The estimated ejection fraction is 62 %. Normal diastology for age. No regional wall motion abnormalities noted. Right Ventricle Normal RV size. Normal systolic function. Atria Normal left atrium. Normal right atrium. Bubble contrast study negative for right to left interatrial shunt. Mitral Valve Normal mitral valve. Tricuspid Valve Normal tricuspid valve. Aortic Valve Normal aortic valve. Trisinus/trileaflet aortic valve. Pulmonic Valve Normal pulmonic valve. Great Vessels Normal aortic root. The pulmonary artery is normal size. Normal inferior vena cava. Pericardium/Pleural No pericardial effusion. Medication Performed a rapid injection of agitated mix of 9 cc saline and 1cc air to assess for atrial septal defect. MMode/2D Measurements & Calculations LVIDd: 5.0 cm IVSd: 1.0 cm Ao root diam: 3.4 cm LVIDs: 3.0 cm LVPWd: 1.0 cm RVDd: 3.7 cm FS: 39.7 % LAV(MOD-bp): 65.4 ml LVAd ap4: 30.6 cm2 LVAd ap2: 28.1 cm2 LAV(MOD-bp) Indexed: 30.8 ml/m2 LVLd ap4: 7.5 cm LVLd ap2: 7.8 cm LAV(MOD-sp2): 57.1 ml EDV(MOD-sp4): 105.6 ml EDV(MOD-sp2): 85.4 ml LAV(MOD-sp4): 61.5 ml EDV(sp4-el): 106.2 ml EDV(sp2-el): 85.9 ml LVAs ap4: 17.4 cm2 LVAs ap2: 15.2 cm2 LVLs ap4: 6.5 cm LVLs ap2: 6.5 cm ESV(MOD-sp4): 38.5 ml ESV(MOD-sp2): 32.6 ml ESV(sp4-el): 39.6 ml ESV(sp2-el): 30.1 ml EF(MOD-sp4): 63.5 % EF(MOD-sp2): 61.8 % EF(sp4-el): 62.7 % SV(MOD-sp4): 67.1 ml SV(MOD-sp2): 52.8 ml SV(sp4-el): 66.6 ml LA A4 area: 20.3 cm2 LA dimension(2D): 4.5 cm RA A4 area: 17.9 cm2 Time Measurements MV dec time: 0.22 sec Doppler Measurements & Calculations MV E max tal: 80.2 cm/sec Lat Peak E' Tal: 11.1 cm/sec Med Peak E' Tal: 9.8 cm/sec MV A max tal: 72.0 cm/sec E/E' lat: 7.3 E/E' med: 8.2 MV E/A: 1.1 MV V2 max: 85.0 cm/sec MV P1/2t max tal: 86.5 cm/sec Ao V2 max: 141.9 cm/sec MV max P.9 mmHg MV P1/2t: 65.1 msec Ao max P.1 mmHg MV V2 mean: 47.6 cm/sec Ao V2 mean: 97.7 cm/sec MV mean P.1 mmHg MV dec slope: 389.2 cm/sec2 Ao mean P.4 mmHg MV V2 VTI: 27.3 cm MVA(P1/2t): 3.4 cm2 Ao V2 VTI: 33.2 cm AV (velocity ratio): 0.80 LV V1 max: 119.3 cm/sec MR max tal: 534.8 cm/sec PA V2 max: 135.8 cm/sec LV V1 max P.7 mmHg MR max P.4 mmHg PA V2 mean: 91.6 cm/sec LV V1 mean P.2 mmHg MR mean tal: 373.6 cm/sec LV V1 mean: 84.9 cm/sec MR mean P.4 mmHg LV V1 VTI: 26.6 cm MR VTI: 142.2 cm TR max tal: 281.1 cm/sec TR max P.6 mmHg ECHO/Echo Complete Interpretation Summary Normal LV size. Left ventricular systolic function is normal. The estimated ejection fraction is 62 %. Normal diastology for age. Bubble contrast study negative for right to left interatrial shunt. Ordering Physician: Abhay Lopez Referring Physician: Rin Du Performed By: Shalini Short RDCS, RVT
[2023-02-12 14:31] LABS: Cholesterol 132 mg/dL (200); High Density Lipoprotein 37 mg/dL; Triglycerides 236 mg/dL; Very Low Density Lipoprotein 47 mg/dL (5-40)
[2023-02-12 14:46] LABS: Bacteria 0 SEEN /hpf (None Seen); Mucous, Urine 0 SEEN /hpf (<or=2+); Red Blood Cells-Urine 0 SEEN /hpf (0-5); Squamous Epithelial Cells - UA 0 SEEN /hpf (0-5); White Blood Cells 0 SEEN /hpf (0-5)
[2023-02-12 14:56] LABS: Color, Urine Yellow (Yellow); Glucose, Dipstick Normal (Normal); Ketone-Dipstick Negative (Negative); Leukocyte Esterase-Dipstick Negative /ul (Negative); Nitrite-Dipstick Negative (Negative); Occult Blood-Urine Negative /ul (Negative); Protein-Dipstick Negative (Negative); Specific Gravity, Urine 1.015 (1.002-1.030); Urine Bilirubin Dipstick Negative (Negative); Urine Clarity Clear (Clear); Urine Urobilinogen Normal (Normal)
[2023-02-12 15:00] LABS: Hemoglobin A1c 5.3 % (3.8-5.6)
[2023-02-12 16:55] VITALS: BMI 28.8
[2023-02-12 17:20] VITALS: BP 127/65; PULSE 55; RESP 17; TEMP 36.4; O2SAT 98
--- NOTE | 2023-02-12 17:40 | NURSING ---
Reports improved dizziness
[2023-02-12 21:20] VITALS: BP 131/70; PULSE 55; RESP 18; TEMP 36.7; O2SAT 99
[2023-02-12] MEDS: Atorvastatin Calcium 40 MG Tablet PO (22:23)
[2023-02-13 01:49] VITALS: BMI 28.8
[2023-02-13 03:30] VITALS: BP 125/73; PULSE 56; RESP 16; TEMP 36.1; O2SAT 97
[2023-02-13 07:54] VITALS: O2SAT 96
--- NOTE | 2023-02-13 09:00 | MRI_ITS ---
EXAM: MR HEAD WITHOUT INTRAVENOUS CONTRAST CLINICAL INDICATION: CVA, dizziness, balance issues TECHNIQUE: Multiplanar and multisequence MR images of the brain were obtained without intravenous contrast. COMPARISON: CT head without contrast CTA head and neck with contrast 02/12/2023 FINDINGS: BRAIN AND EXTRA-AXIAL SPACES: Unremarkable. No intra- or extra-axial hemorrhage. No intracranial mass or mass effect. Posterior fossa structures are unremarkable. Ventricles are appropriate for age. No hydrocephalus. Basal cisterns are patent. No diffusion restriction to suspect acute or subacute ischemic infarct. No focal signal abnormalities throughout the brain parenchyma in all pulse sequences. SELLA: Unremarkable. Normal sella turcica, pituitary gland, infundibular stalk, optic chiasm and hypothalamus. AUDITORY SYSTEM: Unremarkable. The internal auditory canals are patent. BONES/JOINTS: Unremarkable. No discrete lytic or blastic abnormalities. SINUSES: Unremarkable as visualized. Clear. MASTOID AIR CELLS: Unremarkable as visualized. Clear. ORBITS: Unremarkable as visualized. Both globes, extraocular muscles, optic nerves and retrobulbar fat appear unremarkable. VASCULATURE: Unremarkable as visualized. Normal flow voids in the major intracranial circulation. MRI/Brain without Contrast IMPRESSION: Negative MRI brain without intravenous contrast. Electronically Signed: Donnell Goyal MD at 11:03 EDT ,
[2023-02-13] MEDS: Fenofibrate 48 MG Tablet PO (10:34)
[2023-02-13] MEDS: Niacin SA 500 MG Tablet PO (10:34)
[2023-02-13] MEDS: Aspirin E.C. 81 MG Tablet PO (10:34)
[2023-02-13] MEDS: Enoxaparin 40 MG/0.4 ML Syringe SC (10:34)
[2023-02-13] MEDS: Doxazosin 4 MG Tablet PO (10:34)
--- NOTE | 2023-02-13 11:55 | CASEMGMT ---
Addendum entered by Belkys Doyle 02/13/23 12:14: Dr Lopez states antivert may be helpful and states will order PRN antivert while @ [facility] and at discharge. Pt and made aware. Pt states he does not feel he needs any at this time, but will notify RN if he needs it later. Original Note: ALICIA VALDOVINOS NOTE: Per Dr Lopez, pt to discharge today if test results come back negative. Dr Lopez states pt may benefit from OP PT for vestibular therapy and script received. ALICIA CM to room. Pt resting in bed. @ bedside. ALICIA VALDOVINOS introduced self and role. They were made aware of Dr Lopez's rec for OP vestib therapy and questions answered. Script provided to pt and . Pt states his symptoms have mostly resolved and he does not know if he will need therapy or not and he was made aware it is his decision if he wishes to go. inquiring if physician feels pt would benefit from Antivert. Message sent to Dr Lopez via backline. Ajit RODRIGUEZ RN CM
--- NOTE | 2023-02-13 14:07 | DCINST_ITS ---
Discharge Instructions Diet Discharge Diet: No restrictions Activity Discharge Activity: Return to Normal Activity Weight Bearing Status: Full weight bearing Follow Up Care Please Follow Up With: Rin Du MD When: As needed Test Results: Test results from this visit will be discussed in further detail at your follow- up appointment, if applicable. Pending Tests Upon Discharge: None Discharge Plan Admission Admit Date/Time: 02/12/23 12:31 Primary Reason for Your Visit: Stroke rule out Attending Provider: Abhay Lopez Primary Care Provider: Rin Du Instructions Additional Instructions / Restrictions: Please call the vestibular physical therapy office to schedule an appointment there soon. Take Antivert up to 3 times daily as needed for dizziness. Continue all other home medications the same. Follow-up with your primary care doctor as needed. Discharge Orders/Prescriptions Prescriptions: New meclizine 12.5 mg Tablet 12.5 mg PO TID PRN PRN (Reason: Dizziness) 30 Days Qty: 30 0RF Continued Centrum Silver Men 300-600-300 mcg tablet 1 tab PO DAILY niacin 100 mg tablet 500 mg PO DAILY ascorbate calcium (vitamin C) 500 mg tablet 500 mg PO DAILY hsftkoi-psffmvmpd-fqmp 333-133-5 mg tablet 1 tab PO DAILY Tylenol Extra Strength 500 mg powder in packet 500 mg PO Q6H PRN (Reason: pain) ibuprofen 400 mg tablet 600 mg PO BID PRN (Reason: pain) aspirin 81 mg tablet,delayed release (DR/EC) 81 mg PO DAILY omega 6-ezu-muy-fish oil [Fish Oil] 1,200 (144-216) mg capsule 2 cap PO DAILY cholecalciferol (vitamin D3) [Vitamin D3] 50 mcg (2,000 unit) Capsule 50 mcg PO DAILY simvastatin 80 mg tablet 80 mg PO QPM Qty: 90 3RF doxazosin [Cardura] 4 mg tablet 4 mg PO QDAY Qty: 90 3RF fenofibrate 54 mg tablet 54 mg PO DAILY Qty: 90 3RF loratadine [Claritin] 10 mg tablet 10 mg PO DAILY PRN (Reason: allergy symptoms) Qty: 90 2RF Referrals / Follow Up: Rin Du MD [Primary Care Provider] - Disposition Disposition (needs filled in before D/C Order can be placed): Home, Self Care
--- NOTE | 2023-02-13 14:11 | PCM.DC.SUM ---
Providers Date of Admission: 02/12/23 Date of Discharge: 02/13/23 Primary Care Physician: Dr. Rin Du MD Reason For Visit: CVA RULE OUT Diagnosis Discharge Diagnosis (1) Dizziness: Status: Acute Code(s): R42 - Dizziness and giddiness Medications at Discharge Home Medications johaxmwm-sx-xvpcx 300 mcg-K 60 mcg-lycop 600 mcg-lutein 300 mcg tablet (Centrum Silver Men) 1 tab PO DAILY 09/29/19 niacin 100 mg tablet 500 mg PO DAILY 11/12/20 njoxlnz-clehwsarb-fagi 333 mg-133 mg-5 mg tablet 1 tab PO DAILY 01/28/21 cholecalciferol (vitamin D3) 50 mcg (2,000 unit) capsule (Vitamin D3) 50 mcg PO DAILY 02/08/21 acetaminophen 500 mg oral powder packet (Tylenol Extra Strength) 500 mg PO Q6H PRN pain 04/04/21 ascorbate calcium (vitamin C) 500 mg tablet 500 mg PO DAILY 11/02/21 ibuprofen 400 mg tablet 600 mg PO BID PRN pain 03/28/22 omega 1-tmo-bcc-fish oil 1,200 mg (144 mg-216 mg) capsule (Fish Oil) 2 cap PO DAILY 03/28/22 aspirin 81 mg tablet,delayed release 81 mg PO DAILY 08/10/22 simvastatin 80 mg tablet 80 mg PO QPM #90 tabs 11/10/22 doxazosin 4 mg tablet (Cardura) 4 mg PO QDAY #90 tabs 02/06/23 fenofibrate 54 mg tablet 54 mg PO DAILY #90 tabs 02/06/23 loratadine 10 mg tablet (Claritin) 10 mg PO DAILY PRN allergy symptoms #90 tabs 02/06/23 meclizine 12.5 mg tablet 12.5 mg PO TID PRN PRN Dizziness 30 days #30 tabs 02/13/23 Hospital Course Operations None Procedures EKG, Transthoracic echo and - (MRI brain without contrast, CTA head/neck, CT brain without contrast, chest x-ray) Summary of Care Provided Minutes Spent on Discharge: 23 Hospital Course: Patient is a 72-year-old male with history of bilateral carotid artery stenosis, hyperlipidemia, hypertension, paroxysmal A-fib s/p ablation in 2019 and BPH who presented to [facility] on 02/12/[address] brain without contrast with no acute findings. CTA head/neck showed known carotid artery stenosis with no acute findings. Patient notably follows with vascular surgery in the office and had carotid ultrasound done in September 2022 that showed greater than 50% stenosis of left external carotid artery, less than 50% stenosis of right external carotid artery that was unchanged in comparison to previous carotid ultrasound from 2021. MRI brain without contrast showed no concerning findings. TTE showed normal EF, no valvular abnormalities, no atrial dilation. EKG showed normal sinus rhythm. Lipid panel was fairly benign, A1c was normal and UA was normal. Orthostatic vitals were normal. Given negative work-up as noted above, suspect that most likely etiology for patient's dizziness is either BPPV or possibly M?ni?re's disease. Patient notably reported dizziness with certain changes of position with his head. Stated that this had intermittently been going on for some time, but he had not had a persistent episode of dizziness until his admission. Referral was placed to outpatient vestibular physical therapy for patient to see on discharge. Was also given prescription for meclizine as needed on discharge. Discharged home in stable condition. Discharge diagnoses: ? Dizziness, CVA ruled out ? Bilateral carotid artery stenosis, stable ? Hypertension ? BPH ? CKD ? Hyperlipidemia ? History of paroxysmal A-fib with ablation PCP follow-up: Recommend assessing patient's response to meclizine as needed. Recommend the patient schedule appointment with vestibular physical therapy. Total clinical time spent by myself addressing the patient's discharge needs: 23 minutes. Physical Exam Const alert, oriented x3, no apparent distress, average body habitus, healthy appearing and well nourished Constitutional Narrative: Pleasant elderly male, sitting comfortably in bed, conversing normally, no acute distress. General Appearance: cooperative, comfortable, well kempt and well developed HEENT normocephalic, head/scalp atraumatic, hearing grossly normal bilaterally, nasal mucous membranes and turbinates normal and moist oral mucous membranes Eyes PERRL, EOMs intact bilaterally and conjunctivae normal Neck full ROM, no lymphadenopathy and supple Lymph Lymphatic: no lymphadenopathy noted Chest inspection of chest normal Resp normal respiratory effort, normal air movement, no use of accessory muscles and clear to auscultation bilaterally Cardio regular rate, regular rhythm, no murmurs and peripheral pulses 2+ throughout GI normal to inspection, nondistended, normoactive bowel sounds, soft to palpation, non-tender and non-distended Back/Spine normal ROM Extremity normal to inspection, full ROM and no pedal edema Skin no rashes or lesions noted Neuro oriented x3 Neuro Narrative: Patient notes dizziness with movement of head in multiple directions, however no overt neurologic changes noted on exam. Sensorium / Orientation: awake and alert Speech: speech normal Motor Exam: strength 5/5 throughout Psych mental status grossly normal Weight / BMI Weight Weight: 91.1 kg Body Mass Index (BMI) 28.8 ABG / Lab / Microbiology Data 02/12/23 10:30 02/12/23 10:30 Laboratory: Laboratory Results - last 24 hr 02/12/23 10:30: Hemoglobin A1c 5.3, Triglycerides 236 H, Cholesterol 132, LDL Cholesterol 48, VLDL Cholesterol 47 H, HDL Cholesterol 37 L 02/12/23 14:33: Urine Color Yellow, Urine Clarity Clear, Urine pH 6.0, Ur Specific [place] 1.015, Urine Protein Negative, Urine Glucose (UA) Normal, Urine Ketones Negative, Urine Occult Blood Negative, Urine Nitrite Negative, Urine Bilirubin Negative, Urine Urobilinogen Normal, Ur Leukocyte Esterase Negative, Urine RBC 0 SEEN, Urine WBC 0 SEEN, Ur Squamous Epith Cells 0 SEEN, Urine Bacteria 0 SEEN, Urine Mucus 0 SEEN Radiography Diagnostic Testing: Radiology Impression Echocardiogram 02/12/23 13:24 Interpretation Summary Normal LV size. Left ventricular systolic function is normal. The estimated ejection fraction is 62 %. Normal diastology for age. Bubble contrast study negative for right to left interatrial shunt. Ordering Physician: Abhay Lopez Referring Physician: Rin Du Performed By: Shalini Short, MIKE, RVT Brain MRI 02/13/23 09:00 IMPRESSION: Negative MRI brain without intravenous contrast. Electronically Signed: Donnell Goyal MD at 11:03 EDT , D/C Instructions Discharge Diet: No restrictions Weight Bearing Status: Full weight bearing Pending Tests Upon Discharge: None Please Follow Up With: Rin Du MD When: As needed Meaningful Use Info Meaningful Use Diagnoses (Choose all that apply): None applicable Discharge Plan Admission Admit Date/Time: 02/12/23 12:31 Primary Reason for Your Visit: Stroke rule out Attending Provider: Abhay Lopez Primary Care Provider: Rin Du Instructions Additional Instructions / Restrictions: Please call the vestibular physical therapy office to schedule an appointment there soon. Take Antivert up to 3 times daily as needed for dizziness. Continue all other home medications the same. Follow-up with your primary care doctor as needed. Discharge Orders/Prescriptions Prescriptions: New meclizine 12.5 mg Tablet 12.5 mg PO TID PRN PRN (Reason: Dizziness) 30 Days Qty: 30 0RF Continued Centrum Silver Men 300-600-300 mcg tablet 1 tab PO DAILY niacin 100 mg tablet 500 mg PO DAILY ascorbate calcium (vitamin C) 500 mg tablet 500 mg PO DAILY zjopbyr-ypwvhsfbh-rhwx 333-133-5 mg tablet 1 tab PO DAILY Tylenol Extra Strength 500 mg powder in packet 500 mg PO Q6H PRN (Reason: pain) ibuprofen 400 mg tablet 600 mg PO BID PRN (Reason: pain) aspirin 81 mg tablet,delayed release (DR/EC) 81 mg PO DAILY omega 0-xcu-jcd-fish oil [Fish Oil] 1,200 (144-216) mg capsule 2 cap PO DAILY cholecalciferol (vitamin D3) [Vitamin D3] 50 mcg (2,000 unit) Capsule 50 mcg PO DAILY simvastatin 80 mg tablet 80 mg PO QPM Qty: 90 3RF doxazosin [Cardura] 4 mg tablet 4 mg PO QDAY Qty: 90 3RF fenofibrate 54 mg tablet 54 mg PO DAILY Qty: 90 3RF loratadine [Claritin] 10 mg tablet 10 mg PO DAILY PRN (Reason: allergy symptoms) Qty: 90 2RF Referrals / Follow Up: Rin Du MD [Primary Care Provider] - Disposition Disposition (needs filled in before D/C Order can be placed): Home, Self Care Charges/Coding Visit Charges Inpatient E&M: 01947 Disch Hosp
== END 2023-02-13 14:43 | disposition home or self-care (01) ==
LOC: ED 11:28 → PCU 02-13 09:17
PROVIDERS: Admitting Provider Hospitalist; Emergency Provider Emergency Medicine; PCP Internal Medicine; Visit Provider Hospitalist
DX: R42 Dizziness and giddiness (principal); I48.0 Paroxysmal atrial fibrillation; I65.23 Occlusion and stenosis of bilateral carotid arteries; N18.9 Chronic kidney disease, unspecified; E78.00 Pure hypercholesterolemia, unspecified; I12.9 Hypertensive chronic kidney disease with stage 1 through stage 4 chronic kidney disease, or unspecified chronic kidney disease; N40.0 Benign prostatic hyperplasia without lower urinary tract symptoms; R51.9 Headache, unspecified; Z87.891 Personal history of nicotine dependence; Z79.899 Other long term (current) drug therapy; Z79.82 Long term (current) use of aspirin; H53.8 Other visual disturbances
CPT/HCPCS: 70450; 70496; 70498; 70551; 71045; 80048; 80061; 81001; 82962; 83036; 84484; 85025; 85610; 85730; 93005; 93306; 96372; 99221; 99283; Q9967; A4216; G0378

== ENCOUNTER → 2023-03-16 | Outpatient (CLI) | payer MEDICARE, OTHER, SELFPAY ==
[2023-03-16 12:18] LABS: Absolute Lymphocyte Count 1.78 X10^3/uL (0.83-4.51); Absolute Neutrophil Count 3.8 X10^3/uL (2.0-7.7); Basophil# 0.03 X10^3/uL; Basophil% 0.5 % (0-1); Eosinophil# 0.09 X10^3/uL; Eosinophils% 1.5 % (0-5); Hematocrit 42.9 % (40-54); Hemoglobin 14.1 g/dL (13.0-16.5); Lymphocyte # 1.78 X10^3/ul (0.83-4.51); Lymphocyte % 28.8 % (19-41); Mean Corp Hgb Conc 32.9 g/dL (32-36); Mean Corpuscular Hgb 31.8 pg (27.0-32.0); Mean Corpuscular Volume 96.8 fL (80-94); Mean Platelet Vol. 9.7 fl (6.2-12.0); Monocyte# 0.45 X10^3/uL; Monocyte% 7.3 % (0-10); NRBC Flagged by Analyzer 0 % (0-5); Neutrophil # 3.82 X10^3/uL (2.7-7.7); Neutrophil % 61.6 % (47-70); Platelet Count 256 K/mm3 (150-450); RBC Distribution Width CV 12.3 % (11.6-14.6); RBC Distribution Width SD 43.9 fl (35.1-43.9); Red Blood Count 4.43 M/mm3 (4.6-6.2); White Blood Count 6.2 K/mm3 (4.4-11.0)
[2023-03-16 12:58] LABS: ALB/GLOB Ratio 1.1 RATIO (0.9-2.4); AST(SGOT) 15 U/L (15-37); Alanine Aminotransfer ALT/SGPT 26 U/L (16-61); Albumin, Serum 3.6 g/dL (3.2-5.0); Alkaline Phosphatase 67 U/L (45-117); Anion Gap 4 (5-15); BUN 18 mg/dL (7-18); BUN/Creat Ratio 12.6 RATIO (10-20); Calcium,Total 9.3 mg/dL (8.5-10.1); Chloride 110 mmol/L (98-107); Cholesterol 160 mg/dL (200); Creatinine, Serum 1.43 mg/dL (0.70-1.30); EST Glomerular Filtration Rate 52 mL/min (>60); Est Glom Filt Rate - Afr Amer 62 mL/min (>60); Globulin 3.4 g/dL (2.2-4.2); Glucose 90 mg/dL (74-106); High Density Lipoprotein 38 mg/dL; PSA,Total- Diagnostic 5.94 ng/mL (0.0-4.0); Potassium 4.3 mmol/L (3.5-5.1); Sodium Level 141 mmol/L (136-145); Triglycerides 285 mg/dL; Very Low Density Lipoprotein 57 mg/dL (5-40)
== END | disposition home or self-care (01) ==
LOC: BIMLAB 10:15
PROVIDERS: PCP Internal Medicine; Referring Provider Internal Medicine; Visit Provider Internal Medicine
DX: I10 Essential (primary) hypertension (principal); N40.0 Benign prostatic hyperplasia without lower urinary tract symptoms
CPT/HCPCS: 36415; 80053; 80061; 84153; 85025

== ENCOUNTER → 2023-09-12 | Outpatient (CLI) | payer MEDICARE, OTHER, SELFPAY ==
[2023-09-12 13:06] LABS: PSA,Total- Diagnostic 4.21 ng/mL (0.0-4.0)
== END | disposition home or self-care (01) ==
LOC: BIMLAB 10:40
PROVIDERS: PCP Internal Medicine; Visit Provider Internal Medicine
DX: N40.0 Benign prostatic hyperplasia without lower urinary tract symptoms (principal)
CPT/HCPCS: 36415; 84153

== ENCOUNTER → 2023-09-20 | Outpatient (CLI) | payer MEDICARE, OTHER, SELFPAY ==
[2023-09-20 17:11] LABS: Anion Gap 1 (5-15); BUN 20 mg/dL (7-18); BUN/Creat Ratio 15.3 RATIO (10-20); Calcium,Total 9.1 mg/dL (8.5-10.1); Chloride 112 mmol/L (98-107); Creatinine, Serum 1.31 mg/dL (0.70-1.30); EST Glomerular Filtration Rate 57 mL/min (>60); Est Glom Filt Rate - Afr Amer 69 mL/min (>60); Glucose 117 mg/dL (74-106); Sodium Level 141 mmol/L (136-145)
== END | disposition home or self-care (01) ==
LOC: BIMLAB 15:50
PROVIDERS: PCP Internal Medicine; Referring Provider Internal Medicine; Visit Provider Internal Medicine
DX: I10 Essential (primary) hypertension (principal)
CPT/HCPCS: 36415; 80048

== ENCOUNTER → 2023-11-09 | Outpatient (CLI) | payer MEDICARE, OTHER, SELFPAY ==
--- NOTE | 2023-11-09 08:58 | CDU_ITS ---
Reason For Study: LT CAROTID STENOSIS Rt. Velocities/BP Lt. Velocities/BP Prox CCA 101.4/13.5 cm/sec. Prox CCA 116.2/16.7 cm/sec. Mid CCA 82.0/9.5 cm/sec. Mid CCA 78.1/16.7 cm/sec. Dist CCA 66.6/10.6 cm/sec. Dist CCA 63.4/17.9 cm/sec. Prox ICA 99.6/8.4 cm/sec. Prox ICA 64.7/13.1 cm/sec. Mid ICA 117.0/24.9 cm/sec. Mid ICA 86.7/21.9 cm/sec. Dist ICA 102.3/24.9 cm/sec. Dist ICA 82.3/17.5 cm/sec. Rt. ICA/CCA = 117.0/82.0=1.4. Lt. ICA/CCA = 86.7/78.1=1.1. Prox ECA 99.6/11.7 cm/sec. Prox ECA 555.2/34.9 cm/sec. Rt. Vert. 59.2/8.7 cm/sec. Lt. Vert. 65.8/13.1 cm/sec. Right Extracranial There is homogeneous, smooth atherosclerotic plaque noted in the right common carotid artery. There is heterogeneous, irregular atherosclerotic plaque noted in the right internal carotid artery. There is heterogeneous, irregular atherosclerotic plaque noted in the right external carotid artery. Antegrade flow is noted in the right vertebral artery. Left Extracranial There is homogeneous, smooth atherosclerotic plaque noted in the left common carotid artery. There is heterogeneous, irregular atherosclerotic plaque noted in the left internal carotid artery. There is heterogeneous, irregular atherosclerotic plaque noted in the left external carotid artery. Antegrade flow is noted in the left vertebral artery. Procedure Carotid Duplex 79625. This is a Carotid Duplex examination using B-mode, color flow and specral Doppler. Exam performed in department. VL/Carotid Duplex Ultrasound Interpretation Summary Irregular calcific plaque with shadowing at the proximal right internal carotid artery with less than 50% stenosis Less than 50% stenosis right external carotid artery Irregular calcific plaque at the proximal left internal carotid artery with a d egree of shadowing. This extends to the internal carotid carotid artery bulb area. Less than 50% st enosis. Greater than 50% stenosis left external carotid artery Patent antegrade vertebral arteries bilaterally Findings appear to be similar to the previous examination of September 12, 2022 Ordering Physician: Darius Meier Referring Physician: Rin Du Performed By: Shalini Short, MIKE, RVT
== END | disposition home or self-care (01) ==
LOC: CVS 08:54
PROVIDERS: PCP Internal Medicine; Visit Provider Internal Medicine Cardiovascular Disease
DX: I65.22 Occlusion and stenosis of left carotid artery (principal); E78.5 Hyperlipidemia, unspecified
CPT/HCPCS: 93880

== ENCOUNTER → 2023-11-13 | Outpatient (CLI) | payer MEDICARE, OTHER, SELFPAY ==
[2023-11-13 12:30] LABS: Hematocrit 44.1 % (40-54); Hemoglobin 14.7 g/dL (13.0-16.5); Mean Corp Hgb Conc 33.3 g/dL (32-36); Mean Corpuscular Hgb 31.6 pg (27.0-32.0); Mean Corpuscular Volume 94.8 fL (80-94); Mean Platelet Vol. 9.9 fl (6.2-12.0); Platelet Count 180 K/mm3 (150-450); RBC Distribution Width CV 12.5 % (11.6-14.6); RBC Distribution Width SD 43.6 fl (35.1-43.9); Red Blood Count 4.65 M/mm3 (4.6-6.2); White Blood Count 4.1 K/mm3 (4.4-11.0)
[2023-11-13 12:39] LABS: Vitamin B12 376 pg/mL (211-911)
[2023-11-13 12:44] LABS: Hemoglobin A1c 5.2 % (3.8-5.6)
[2023-11-13 13:49] LABS: ALB/GLOB Ratio 1.1 RATIO (0.9-2.4); AST(SGOT) 20 U/L (15-37); Alanine Aminotransfer ALT/SGPT 30 U/L (16-61); Albumin, Serum 3.8 g/dL (3.2-5.0); Alkaline Phosphatase 70 U/L (45-117); Anion Gap 8 (5-15); BUN 18 mg/dL (7-18); BUN/Creat Ratio 12.9 RATIO (10-20); Calcium,Total 9.5 mg/dL (8.5-10.1); Chloride 110 mmol/L (98-107); EST Glomerular Filtration Rate 53 mL/min (>60); Est Glom Filt Rate - Afr Amer 64 mL/min (>60); Globulin 3.4 g/dL (2.2-4.2); Glucose 93 mg/dL (74-106); Potassium 3.9 mmol/L (3.5-5.1); Protein, Total 7.2 g/dL (6.4-8.2); Sodium Level 141 mmol/L (136-145); Thyroid Stim Hormone (TSH) 1.52 uIU/mL (0.358-3.74)
[2023-11-16 11:10] LABS: Free Kappa Light Chains 17.8 mg/L (3.3-19.4); Free Lambda Light Chains 10.1 mg/L (5.7-26.3); Vitamin B1, Thiamine 175.8 nmol/L (66.5-200.0)
== END | disposition home or self-care (01) ==
LOC: BIMLAB 09:24
PROVIDERS: Psychiatry & Neurology Neurology; PCP Internal Medicine; Referring Provider Internal Medicine; Visit Provider Internal Medicine
DX: R20.0 Anesthesia of skin (principal); R26.9 Unspecified abnormalities of gait and mobility; E78.5 Hyperlipidemia, unspecified; H81.10 Benign paroxysmal vertigo, unspecified ear; R73.9 Hyperglycemia, unspecified
CPT/HCPCS: 36415; 80053; 82607; 82746; 83036; 83883; 84425; 84443; 85027

== ENCOUNTER → 2023-11-15 | Outpatient (CLI) | payer MEDICARE, OTHER, SELFPAY ==
--- NOTE | 2023-11-15 12:38 | MRI_ITS ---
STUDY: MRI LUMBAR SPINE WITHOUT CONTRAST REASON FOR EXAM: Male, 73 years old. low back pain; left leg numbness; gait imbalance TECHNIQUE: Standardized fat and water weighted pulse sequences were obtained in the sagittal and axial planes. COMPARISON: MRI the lumbar spine dated May 25, 2020 FINDINGS: Normal lumbar lordosis. There is no substantial scoliosis. Normal conus medullaris that terminates at the T12-L1: Normal endplates. Normal disc height, hydration and morphology. Normal bilateral facet joints. Normal central canal and bilateral lateral recesses. Normal bilateral intervertebral neural foramina. L1-2: Normal endplates. Normal disc height, hydration and morphology. Normal bilateral facet joints. Normal central canal and bilateral lateral recesses. Normal bilateral intervertebral neural foramina. L2-3: Normal endplates. Normal disc height, hydration and morphology. Normal bilateral facet joints. Normal central canal and bilateral lateral recesses. Normal bilateral intervertebral neural foramina. L3-4: Normal endplates. Diffuse disc desiccation and mild disc space narrowing with a minimal anterior disc spur complex. No posterior disc herniation or bulging. Normal bilateral facet joints. Normal central canal and bilateral lateral recesses. Normal bilateral intervertebral neural foramina. L4-5: Postop change status post left laminectomy Normal endplates. Minimal posterior disc space narrowing without bulging or herniation of the disc. Mild bilateral facet arthropathy more pronounced on the right. Normal central canal and bilateral lateral recesses. Mild right foraminal stenosis. Moderate left foraminal stenosis with nerve root compression. L5-S1: Chronic bilateral L5 pars interarticularis defects with minimal anterolisthesis of L5 on S1 of 3 mm. Moderate bilateral foraminal stenosis with nerve root compression is unchanged. Mild to moderate facet joint hypertrophy. Severe disc space narrowing. No posterior disc herniation or bulging. Normal central canal and bilateral lateral recesses. Normal visualized sacral ala. Normal visualized paraspinous soft tissue structures. MRI/Spine Lumbar (Routine) IMPRESSION: 1. Multilevel degenerative changes, as described above. No significant interval change. Electronically Signed: Mukesh Blank MD at 15:30 EDT ,
--- NOTE | 2023-11-15 12:38 | MRI_ITS ---
STUDY: MRI CERVICAL SPINE WITHOUT CONTRAST REASON FOR EXAM: Male, 73 years old. neck pain; gait imbalance TECHNIQUE: Standardized fat and water weighted pulse sequences were obtained in the sagittal and axial planes. COMPARISON: None FINDINGS: Normal foramen magnum and brainstem-cervical cord junction. Normal craniovertebral junction. Normal anterior atlantoaxial articulation. Normal odontoid process. Normal cervical lordosis. Normal vertebral bodies and posterior osseous elements. C2-3: Normal endplates. Diffuse disc desiccation. Normal disc height and morphology. Normal central canal and intervertebral neural foramina. C3-4: Normal endplates. Diffuse disc desiccation with mild disc space narrowing and posterior annular bulging. Normal central canal. Mild bilateral foraminal stenosis due to uncovertebral hypertrophy. C4-5: Normal endplates. Diffuse disc desiccation with moderate disc space narrowing and mild diffuse annular bulging eccentric to the left. Shallow superimposed left paracentral disc protrusion with compression of the left anterior aspect of the cord. Mild to moderate central canal stenosis and mass effect across the cord. Moderate left and severe right foraminal stenosis with nerve root compression due to uncovertebral facet joint hypertrophy. C5-6: Diffuse disc desiccation with moderate disc space narrowing and posterior annular bulging resulting in mass effect on anterior aspect of cord and [id number] central canal stenosis. Moderate to severe bilateral foraminal stenosis with nerve root compression due to uncovertebral and facet joint hypertrophy, right greater than left. C6-7: Diffuse disc desiccation with moderate disc space narrowing. No posterior disc bulging or herniation. Normal central canal and intervertebral neural foramina. C7-T1: Normal endplates. Diffuse disc desiccation with mild to moderate disc space narrowing. Anterolisthesis of C7 on T1 of 2 mm. Shallow midline disc protrusion. Normal central canal and intervertebral neural foramina. Normal cervical cord. There is no demonstrated cervical cord syrinx cavity. Normal visualized soft tissue structures. MRI/Spine Cervical (Routine) IMPRESSION: 1. Multilevel degenerative changes, as described above. 2. Mild to moderate central canal stenosis with mass effect on the cord and multilevel foraminal stenosis with nerve root compression as detailed above at each level. Electronically Signed: Mukesh Blank MD at 15:15 EDT ,
== END | disposition home or self-care (01) ==
LOC: MRI 12:34
PROVIDERS: PCP Internal Medicine; Referring Provider Psychiatry & Neurology Neurology; Visit Provider Psychiatry & Neurology Neurology
DX: M54.2 Cervicalgia (principal); M54.50 Low back pain, unspecified; R20.0 Anesthesia of skin; R26.9 Unspecified abnormalities of gait and mobility
CPT/HCPCS: 72141; 72148

== ENCOUNTER → 2023-11-28 | Outpatient (CLI) | payer MEDICARE, OTHER, SELFPAY ==
--- NOTE | 2023-11-28 13:38 | NEURO ---
NCS and/or EMG Patient Report Ordering Doctor: Miller Delaney DATE OF SERVICE: 11/28/23 Roney presents with complaints of left lower leg numbness and heaviness. Electrodiagnostic Findings: The left peroneal motor nerve demonstrates borderline prolonged distal latency with reduced amplitude. A response could not be obtained at the fibular head. Left tibial motor nerve demonstrates normal distal latency, amplitude and conduction velocity. Absent left peroneal F?wave. Normal left sural and superficial peroneal responses. Needle EMG testing was performed the left lower limb. The left tibialis anterior showed presence of complex repetitive discharges. Reaction potentials were normal amplitude and duration. Electrodiagnostic impression: This is an abnormal study in the left lower limb 1. 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 A promixal response could not be obtained at the fibular head. 2. There is no electrodiagnostic evidence for lumbosacral radiculopathy. Multi Select Codes Neurology Neurology Interp Codes: 26398-96 Musc test done w/n test comp (interp) and 78239-87 Nrv cndj tst 5-6 studies (interp)
== END | disposition home or self-care (01) ==
PROVIDERS: PCP Internal Medicine; Referring Provider Psychiatry & Neurology Neurology; Visit Provider Psychiatry & Neurology Neurology
DX: R20.0 Anesthesia of skin (principal); M54.50 Low back pain, unspecified; R26.9 Unspecified abnormalities of gait and mobility
CPT/HCPCS: 95886; 95909

== ENCOUNTER → 2024-03-18 | Outpatient (CLI) | payer MEDICARE, OTHER, SELFPAY ==
[2024-03-18 12:36] LABS: Absolute Lymphocyte Count 1.41 X10^3/uL (0.83-4.51); Absolute Neutrophil Count 2.2 X10^3/uL (2.0-7.7); Basophil# 0.03 X10^3/uL; Basophil% 0.7 % (0-1); Eosinophil# 0.08 X10^3/uL; Hematocrit 42.5 % (40-54); Hemoglobin 14.3 g/dL (13.0-16.5); Lymphocyte # 1.41 X10^3/ul (0.83-4.51); Lymphocyte % 35.1 % (19-41); Mean Corp Hgb Conc 33.6 g/dL (32-36); Mean Corpuscular Hgb 31.6 pg (27.0-32.0); Mean Platelet Vol. 10.1 fl (6.2-12.0); Monocyte# 0.32 X10^3/uL; NRBC Flagged by Analyzer 0 % (0-5); Neutrophil # 2.17 X10^3/uL (2.7-7.7); Platelet Count 181 K/mm3 (150-450); RBC Distribution Width CV 12.4 % (11.6-14.6); RBC Distribution Width SD 42.7 fl (35.1-43.9); Red Blood Count 4.52 M/mm3 (4.6-6.2)
[2024-03-18 13:02] LABS: ALB/GLOB Ratio 1.1 RATIO (0.9-2.4); AST(SGOT) 17 U/L (15-37); Alanine Aminotransfer ALT/SGPT 30 U/L (16-61); Albumin, Serum 3.8 g/dL (3.2-5.0); Alkaline Phosphatase 67 U/L (45-117); Anion Gap 7 (5-15); BUN 20 mg/dL (7-18); BUN/Creat Ratio 13.5 RATIO (10-20); Calcium,Total 9.7 mg/dL (8.5-10.1); Chloride 109 mmol/L (98-107); Cholesterol 177 mg/dL (200); Creatinine, Serum 1.48 mg/dL (0.70-1.30); EST Glomerular Filtration Rate 49 mL/min (>60); Est Glom Filt Rate - Afr Amer 60 mL/min (>60); Globulin 3.4 g/dL (2.2-4.2); Glucose 98 mg/dL (74-106); High Density Lipoprotein 38 mg/dL; PSA,Total- Diagnostic 4.34 ng/mL (0.0-4.0); Potassium 4.2 mmol/L (3.5-5.1); Protein, Total 7.2 g/dL (6.4-8.2); Sodium Level 142 mmol/L (136-145); Triglycerides 425 mg/dL
[2024-03-19 14:28] LABS: Vitamin B12 922 pg/mL (211-911)
== END | disposition home or self-care (01) ==
LOC: BIMLAB 10:33
PROVIDERS: PCP Internal Medicine; Referring Provider Internal Medicine; Visit Provider Internal Medicine
DX: H81.10 Benign paroxysmal vertigo, unspecified ear (principal); E78.5 Hyperlipidemia, unspecified; G62.9 Polyneuropathy, unspecified; N40.0 Benign prostatic hyperplasia without lower urinary tract symptoms
CPT/HCPCS: 36415; 80053; 80061; 82607; 84153; 85025

== ENCOUNTER → 2024-06-28 | Outpatient (CLI) | payer MEDICARE, OTHER, SELFPAY ==
[2024-06-28 11:26] LABS: ALB/GLOB Ratio 1.2 RATIO (0.9-2.4); AST(SGOT) 18 U/L (15-37); Alanine Aminotransfer ALT/SGPT 27 U/L (16-61); Albumin, Serum 3.9 g/dL (3.2-5.0); Alkaline Phosphatase 60 U/L (45-117); Anion Gap 4 (5-15); BUN 18 mg/dL (7-18); BUN/Creat Ratio 13.7 RATIO (10-20); Calcium,Total 9.3 mg/dL (8.5-10.1); Chloride 111 mmol/L (98-107); Cholesterol 113 mg/dL (200); Creatinine, Serum 1.31 mg/dL (0.70-1.30); EST Glomerular Filtration Rate 57 mL/min (>60); Est Glom Filt Rate - Afr Amer 69 mL/min (>60); Globulin 3.2 g/dL (2.2-4.2); Glucose 97 mg/dL (74-106); High Density Lipoprotein 45 mg/dL; Potassium 3.8 mmol/L (3.5-5.1); Protein, Total 7.1 g/dL (6.4-8.2); Sodium Level 140 mmol/L (136-145); Triglycerides 164 mg/dL; Very Low Density Lipoprotein 33 mg/dL (5-40)
== END | disposition home or self-care (01) ==
LOC: LAB 10:13
PROVIDERS: PCP Internal Medicine; Referring Provider Internal Medicine; Visit Provider Internal Medicine
DX: E78.5 Hyperlipidemia, unspecified (principal)

== ENCOUNTER → 2024-12-29 | Outpatient (CLI) | payer MEDICARE, OTHER, SELFPAY ==
--- OUTSIDE RECORDS SUMMARY | 2024-12-25 18:58 | XMS RPT_ITS | CCD ---
Author Organization [facility] Team Providers Care Referral Nurse Name Role Phone JAVAN, WADE Teresa Attending Unavailable JAVAN, WADE Brii Primary Care Unavailable JAVAN, WADE Brii Admitting Unavailable JAVAN, WADE E Attending Unavailable JAVAN, WADE E Primary Care Unavailable JAVAN, WADE Brii Admitting Unavailable Dr. Rin Du Primary Care Provider [phone] Dr. Rin Du Referring Provider [phone] Dr. Darius Meier Attending Provider [phone] Dr. Rin Du Attending Provider [phone] Dr. Elmer uCrry Attending Provider [phone]) Dr. Rin Du Primary Care Provider [phone] Dr. Rin Du Referring Provider [phone] Dr. Feroz Fairbanks Attending Provider [phone] Dr. Darius Meier Attending Provider [phone] Dr. Rin Du Primary Care Provider [phone] Dr. Rin Du Referring Provider [phone] [facility] FAMILY CONSUMER SCIENTIST, FAMILY CONSUMER SCIENTIST-Krunal Betancourt Attending Provider [phone] Elmer Curry Attending Provider [phone] Dr. Elmer Curry Referring Provider [phone] Dr. Rin Du Attending Provider [phone] Dr. Rin Du Primary Care Provider [phone] Oleghe, Dr. Efewongbe Referring Provider Dr. Feroz Fairbanks Attending Provider [phone] Dr. Darius Meier Attending Provider Dr. Noel Banegas Emergency Provider Dr. Abhay Lopez Admit Provider [phone] Abhay Lopez Attending Provider Dr. Abhay Lopez Other Provider [phone] Dr. Rin Du Primary Care Provider [phone] Dr. Rin Du Referring Provider [phone] Dr. Jayjay Hunt Attending Provider [phone] Dr. Rin Du Attending Provider [phone] Unavailable Primary Care Provider Unavailchapincito Du MD, Efewongbe B Primary Care Provider [phone] LISET DOCKERY Attending Unavailable LISET MENDOZA Referring Unavailable OLEGHE, EFEWONGBE B Primary Care Unavailable GATITO OLIVIER Attending UnavailMICHELLE Hickman Admitting Unavailable MICHELLE COTA Attending Unavailable LISET MENDOZA Attending Unavailable LISET MENDOZA Attending Unavailable LISET MENDOZA Referring Unavailable OLEGHE, EFEWONGBE B Primary Care Unavailable Feroz Fairbanks Attending Unavailable Oleghe, Efewongbe Primary Care Unavailable Oleghe, Efewongbe Referring Unavailable Oleghe, Efewongbe Primary Care Unavailable Jayjay Hunt Attending Unavailable Oleghe, Efewongbe Referring Unavailable Oleghe, Efewongbe Primary Care Unavailable Oleghe, Efewongbe Attending Unavailable Oleghe, Efewongbe Referring Unavailable Oleghe, Efewongbe Primary Care Unavailable Oleghe, Efewongbe Referring Unavailable Roof Jared VERNON Attending Unavailable Oleghe, Efewongbe Primary Care Unavailable Oleghe, Efewongbe Attending Unavailable Oleghe, Efewongbe Referring Unavailable Oleghe, Efewongbe Primary Care Unavailable Miller Delaney Attending Unavailable Miller Delaney Referring Unavailable Oleghe, Efewongbe Primary Care Unavailable Oleghe, Efewongbe Attending Unavailable Oleghe, Efewongbe Referring Unavailable Oleghe, Efewongbe Primary Care Unavailable Renea, Kalona Attending Unavailable Oleghe, Efewongbe Primary Care Unavailable Jamie Whaley Attending Unavailable Miller Delaney Consulting Unavailable Miller Delaney Referring Unavailable Oleghe, Efewongbe Referring Unavailable Marya Collier Attending Unavailable Oleghe, Efewongbe Primary Care Unavailable Oleghe, Efewongbe Attending Unavailable Oleghe, Efewongbe Referring Unavailable Oleghe, Efewongbe Primary Care Unavailable Oleghe, Efewongbe Primary Care Unavailable Oleghe, Efewongbe Attending Unavailable Oleghe, Efewongbe Referring Unavailable Renea, Darius Attending Unavailable Oleghe, Efewongbe Primary Care Unavailable Markose , Dr. Gar Primary Care Provider Dr. Rin Du MD Referring Provider Jared Howard Attending Provider Allergies Allergy Classification Reported Allergen(s) Allergy Type Date of Onset Reaction(s) Facility (9 sources) diazePAM Drug Allergy 09-20-19 22 hallucinations [facility] (9 sources) oxyCODONE Drug Allergy 09-20-19 22 hallucinations [facility] (11 sources) POISON ARCELIA EXTRACT; Translations: [POISON ARCELIA] Drug Allergy 01-01-20 14 Rash [facility] (9 sources) Morphinan opioid; Translations: [OPIOIDS - MORPHINE ANALOGUES] Drug Allergy 04-04-20 21 Mental Status Change [facility] (1 source) diazePAM Drug Allergy 11-14-19 [facility] (1 source) oxyCODONE Drug Allergy 11-14-19 [facility] (1 source) Opioids - Morphine Analogues Drug allergy (disorder) 11-14-19 [facility] (1 source) Opioids - Morphine Analogues Propensity to adverse reactions 11-14-19 Other [facility] Comment on above: mental status change s bizarre behavior Medications Current Medications Medication Drug Class(es) Dates Sig (Normalized) Sig (Original) Acetaminophen (Tylenol Extra Strength) 500 mg powder in packet (9 sources) Start: 04-04-2021 take 500 mg by mouth every six hours Acetaminophen (Tylenol Extra Strength) 500 mg powder in packet Active 500 MG PO EVERY 6 HOURS April 04, 2021 10:03am Start: 04-04-2021 End: 09-20-2023 take 500 mg by mouth every six hours as needed for pain Acetaminophen (Tylenol Extra Strength) 500 mg powder in packet Discontinued 500 mg PO EVERY 6 HOURS as needed for pain April 04, 2021 12:00am September 20, 2023 3:10pm Start: 04-04-2021 End: 09-20-2023 take 500 mg by mouth every six hours Acetaminophen (Tylenol Extra Strength) 500 mg powder in packet Discontinued 500 MG PO EVERY 6 HOURS April 04, 2021 12:00am September 20, 2023 3:10pm Start: 04-04-2021 take 500 mg by mouth every six hours Acetaminophen (Tylenol Extra Strength) 500 mg powder in packet Active 500 MG PO EVERY 6 HOURS April 04, 2021 12:00am aspirin 81 mg delayed release oral tablet (20 sources) Platelet Aggregation Inhibitor, Nonsteroidal Anti-inflammatory Drug Start: 08-10-2022 take 1 tablet by mouth once daily Aspirin 81 mg tablet,delayed release (DR/EC) Active 81 mg PO DAILY August 10, 2022 1:00am Start: 03-28-2022 End: 08-10-2022 take 1 tablet by mouth once daily Aspirin 325 mg tablet Discontinued 325 mg PO DAILY March 28, 2022 12:00am August 10, 2022 2:22pm Start: 11-02-2021 End: 03-28-2022 take 1 tablet by mouth once daily Aspirin (Adult Aspirin Regimen) 81 mg tablet,delayed release (DR/EC) Discontinued 81 mg PO DAILY November 02, 2021 12:00am March 28, 2022 10:18am Start: 12-01-2019 End: 05-13-2021 take 1 tablet by mouth once daily Aspirin (Adult Aspirin Regimen) 81 mg tablet,delayed release (DR/EC) Discontinued 81 mg PO DAILY December 01, 2019 12:00am May 13, 2021 1:58pm Start: 09-29-2019 End: 12-01-2019 take 1 tablet by mouth once daily Aspirin 325 mg tablet Discontinued 325 mg PO DAILY September 29, 2019 12:00am December 01, 2019 2:26pm calcium ascorbate 500 mg oral tablet (16 sources) Start: 11-02-2021 take 1 g by mouth once daily Ascorbate Calcium (Vitamin C) Active 1 GM PO DAILY November 02, 2021 1:27pm Start: 01-06-2021 End: 11-02-2021 take 1 tablet by mouth once daily Ascorbate Calcium (Vitamin C) 500 mg tablet Active 500 mg PO DAILY November 02, 2021 1:27pm Gdjhylz-Fxsdfmbcn-Znso (9 sources) Start: 01-28-2021 take 1 tablet by mouth once daily Kriqequ-Makszbhpt-Yepn Active 1 TABLET PO DAILY January 28, 2021 10:11am Start: 01-28-2021 Calcium-Magnes ium-Zinc 333-133-5 mg tablet Active 1 {tbl} PO DAILY January 28, 2021 12:00am Start: 01-28-2021 take 1 tablet by forrest th once daily Qyoypzf-Loypltysg-Lrqm Active 1 TABLET P O DAILY January 28, 2021 12:00am calcium/magnesium/zinc (HZHDPLX-RKLLQGTFQS-RVOU) 333-133-5 mg tab (8 sources) Start: 01-28-2021 calcium/magnesium/zinc (VQJSPFO-GJEFHWUZHG-WYUH) 333-133-5 mg tab Take by mouth. 01/28/2021 Active cholecalciferol 0.05 mg oral capsule (18 sources) Vitamin D Start: 02-08-2021 take 1 capsule by mouth once daily Cholecalciferol (Vitamin D3) (Vitamin D3) 50 mcg (2,000 unit) Capsule Active 50 ug PO DAILY February 08, 2021 12:00am Start: 09-29-2019 End: 12-01-2019 take 1 capsule by mouth once daily Cholecalciferol (Vitamin D3) 1,250 mcg (50,000 unit) capsule Discontinued 1250 ug PO DAILY September 29, 2019 12:00am December 01, 2019 2:27pm doxazosin 4 mg oral tablet (20 sources) alpha-Adrenergic Darlin Start: 01-06-2014 End: 02-04-2024 take 1 tablet by mouth once daily Doxazosin (Cardura) 4 mg tablet Active 4 mg PO daily February 04, 2024 5:51pm fenofibrate 54 mg oral tablet (20 sources) Peroxisome Proliferator Receptor alpha Agonist Start: 04-09-2020 End: 02-04-2024 take 1 tablet by mouth once daily Fenofibrate 54 mg tablet Active 54 mg PO DAILY February 04, 2024 5:50pm Start: 04-09-2020 End: 06-25-2020 Fenofibrate 54 mg tablet Discontinued {tbl} PO April 09, 2020 12:00am June 25, 2020 11:19am Start: 02-13-2020 End: 03-19-2020 take 1 tablet by mouth once daily Fenofibrate 54 mg tablet Discontinued 54 mg PO DAILY February 13, 2020 12:00am March 19, 2020 11:42am Start: 02-13-2020 End: 03-19-2020 take 1 capsule by mouth once daily Fenofibrate 50 mg capsule Discontinued 50 mg PO DAILY February 13, 2020 12:00am March 19, 2020 11:42am ibuprofen 400 mg oral tablet (20 sources) Nonsteroidal Anti-inflammatory Drug Start: 03-28-2022 Ibuprofen 400 mg tablet Active 600 mg PO TWICE A DAY as needed for pain March 28, 2022 10:19am Start: 03-28-2022 take 600 mg by mouth twice daily Ibuprofen Active 600 MG PO TWICE A DAY March 28, 2022 10:19am Start: 04-04-2021 End: 03-28-2022 take 1 tablet by mouth every eight hours as needed Ibuprofen 400 mg tablet Discontinued 400 mg PO Q8H as needed August 09, 2021 2:54pm March 28, 2022 10:19am loratadine 10 mg oral tablet (20 sources) Start: 03-06-2018 End: 05-05-2024 take 1 tablet by mouth once daily Loratadine (Claritin) 10 mg tablet Active 10 mg PO DAILY May 05, 2024 5:34pm meloxicam 15 mg oral tablet (20 sources) Nonsteroidal Anti-inflammatory Drug Start: 07-10-2024 End: 10-08-2024 take 1 tablet by mouth once daily meloxicam (MOBIC) 15 mg tablet Take 1 tablet by mouth once daily. 30 tablet 2 07/10/2024 10/08/2024 Active Start: 06-25-2020 End: 11-12-2020 take 1 tablet by mouth once daily Meloxicam 7.5 mg tablet Discontinued 7.5 mg PO DAILY June 25, 2020 1:00am November 12, 2020 1:04pm Start: 04-09-2020 End: 05-14-2020 take 1 tablet by mouth once daily Meloxicam (Mobic) 15 mg tablet Discontinued 15 mg PO DAILY April 09, 2020 12:00am May 14, 2020 2:00pm Do not take in conjunction with other NSAIDs. Tylenol is okay Start: 10-06-2019 End: 12-01-2019 take 1 tablet by mouth once daily Meloxicam (Mobic) 15 mg tablet Discontinued 15 mg PO DAILY October 06, 2019 12:00am December 01, 2019 2:28pm Do not take with other NSAIDs Xedgqfxq-Oow-Ut-Lycopen-Lute in (Centrum Silver Men) 300-600-300 mcg tablet (5 sources) Start: 09-29-2019 take 300-600 tablets by mouth once daily Rwyjrvdm-Jfn-Zk-Lycopen-Lutein (Centrum Silver Men) 300-600-300 mcg tablet Active 1 TABLET PO DAILY September 29, 2019 1:56pm Start: 09-29-2019 take 300-600 tablets by mouth once daily Rpdohavc-Tqw-Yg-Lycopen-Lutein (Centrum Silver Men) 300-600-300 mcg tablet Active 1 TABLET PO DAILY September 29, 2019 12:00am ANCYZUOM-XEI-AD-LYCOPEN-LUTE IN ORAL (8 sources) Start: 09-29-2019 DEFICZPO-GWX-EF-LYCOPEN-LUTE IN ORAL Take by mouth. 09/29/2019 Active As-Wfj-Cwpli-U3-Cwkaumt-Ojsy in (Centrum Silver Men) 300-600-300 mcg tablet (4 sources) Start: 09-29-2019 Zt-Zig-Jnrpz-B1-Pzegjno-Kvzs in (Centrum Silver Men) 300-600-300 mcg tablet Active 1 {tbl} PO DAILY September 29, 2019 12:00am Start: 09-29-2019 take 300-600 tablets by mouth once daily Bb-Cvf-Qagpe-J4-Gxedpge-Nawolr (Centrum Silver Men) 300-600-300 mcg tablet Active 1 TABLET PO DAILY September 29, 2019 12:00am niacin 100 mg oral tablet (18 sources) Nicotinic Acid Start: 11-12-2020 take 5 tablets by mouth once daily Niacin 100 mg tablet Active 500 mg PO DAILY November 12, 2020 12:00am Start: 11-12-2020 take 500 mg by mouth once jonelle y Niacin Active 500 MG PO DAILY November 12, 2020 12:00am Start: 09-29-2019 End: 03-19-2020 take 1 tablet by mouth once daily Niacin 500 mg tablet Discontinued 500 mg PO DAILY September 29, 2019 12:00am March 19, 2020 11:42am Energy 8-Huf-Cyg-Fish Oil (Fi sh Oil) 1,200 (144-216) mg capsule (13 sources) Start: 03-28-2022 Energy 3-Dha-Ep a-Fish Oil (Fish Oil) 1,200 (144-216) mg capsule Active 2 NMA PO DAILY March 28, 2022 10:19am Start: 03-28-2022 take 2 capsules by m outh once daily Energy 5-Jby-Xvu-Fish Oil (Fish Oil) 1,200 (144-216) mg capsule Active 2 CAP PO DAILY March 28, 2022 10:19am Start: 11-02-2021 End: 03-28-2022 Energy 4-Ymr-Gqm-Fish Oil (Fi sh Oil) 1,200 (144-216) mg capsule Discontinued 1 NMA PO DAILY November 02, 2021 12:00am March 28, 2022 10:19am Start: 11-02-2021 End: 03-28-2022 take 1 capsule by mouth once daily Energy 9-Ytm-Bvy-Fish Oil (Fish Oil) 1,200 (144-216) mg capsule Discontinued 1 CAP PO DAILY November 02, 2021 12:00am March 28, 2022 10:19am Start: 11-02-2021 take 1 capsule by mo uth once daily Energy 8-Xru-Gwa-Fish Oil (Fish Oil) 1,200 (144-216) mg capsule Active 1 CAP PO DAILY November 02, 2021 12:00am rosuvastatin calcium 40 mg oral tablet (1 source) HMG-CoA Reductase Inhibitor Start: 03-20-2024 take 1 tablet by mouth once daily Rosuvastatin 40 mg tablet Active 40 mg PO daily March 20, 2024 12:00am Completed/Discontinued Medications Medication Drug Class(es) Dates Sig (Normalized) Sig (Original) acetaminophen 325 mg / HYDROcodone bitartrate 7.5 mg oral tablet (20 sources) Opioid Agonist Start: 03-07-2021 End: 03-12-2021 Hydrocodone-Acetamin ophen 7.5-325 mg tablet Discontinued 1 - 2 {tbl} PO Q4H as needed for pain 30 March 07, 2021 March 11, 2021 12:00am March 12, 2021 12:01am do not take inconjunction with Oxycodone Start: 03-07-2021 End: 03-12-2021 take 1 tablet by mouth every four hours Hydrocodone-Acetaminophen Discontinued 1 - 2 TABLET PO Q4H 30 March 07, 2021 March 12, 2021 12:01am do not take inconjunction with Oxycodone Start: 03-07-2021 End: 04-04-2021 Hydrocodone-Acetaminophen 7. 5-325 mg tablet Discontinued 1 {tbl} PO March 07, 2021 12:00am April 04, 2021 10:03am Start: 03-07-2021 End: 04-04-2021 Hydrocodone-Acetaminophen Di scontinued 1 TABLET PO March 07, 2021 12:00am April 04, 2021 10:03am Start: 2021 End: 03-05-2021 Hydrocodone-Acetaminophen 7. 5-325 mg tablet Discontinued 1 - 2 {tbl} PO Q4H as needed for pain 07 11February 28, 2021 March 04, 2021 12:00am March 05, 2021 12:01am do not take inconjunction with Oxycodone Start: 2021 End: 03-05-2021 take 1 tablet by mouth every four hours Hydrocodone-Acetaminophen Discontinued 1 - 2 TABLET PO Q4H 07 11February 28, 2021 March 05, 2021 12:01am do not take inconjunction with Oxycodone amoxicillin 500 mg oral tablet (15 sources) Penicillin-class Antibacterial Start: 07-05-2022 End: 01-22-2023 take 4 tablets by mouth every hour Amoxicillin 500 mg tablet Discontinued 2000 mg PO ONCE July 05, 2022 1:00am January 22, 2023 2:08pm take 4 tabs within 1 hr prior to dental procedure. Start: 07-05-2022 End: 01-22-2023 take 4 tablets by mouth every hour Amoxicillin Discontinued 2000 MG PO ONCE July 05, 2022 1:00am January 22, 2023 2:08pm take 4 tabs within 1 hr prior to dental procedure. Start: 05-23-2021 End: 11-02-2021 take 4 tablets by mouth every hour Amoxicillin 500 mg tablet Discontinued 500 mg PO ONCE May 23, 2021 1:00am November 02, 2021 1:30pm take 4 tabs within 1 hr prior to dental procedure. apixaban 2.5 mg oral tablet (9 sources) Factor Xa Inhibitor Start: 02-23-2021 End: 03-07-2021 take 1 tablet by mouth twice daily Apixaban (Eliquis) 2.5 mg Tablet Discontinued 2.5 mg PO TWICE A DAY February 23, 2021 12:00am March 07, 2021 10:16am ascorbic acid 500 mg oral tablet (9 sources) Vitamin C Start: 12-01-2019 End: 03-19-2020 take 1 tablet by mouth once daily Ascorbic Acid (Vitamin C) 500 mg tablet Discontinued 500 mg PO DAILY December 01, 2019 12:00am March 19, 2020 11:42am cyclobenzaprine hydrochloride 5 mg oral tablet (18 sources) Muscle Relaxant Start: 05-13-2021 End: 11-02-2021 take 1 tablet by mouth three times daily as needed Cyclobenzaprine 5 mg tablet Discontinued 5 mg PO THREE TIMES A DAY as needed May 13, 2021 1:00am November 02, 2021 1:30pm Start: 05-10-2020 End: 11-12-2020 take 1 tablet by mouth three times daily as needed for muscle spasms Cyclobenzaprine 10 mg tablet Discontinued 10 mg PO THREE TIMES A DAY as needed for muscle spasm May 10, 2020 1:00am November 12, 2020 1:03pm desloratadine 5 mg oral tablet (9 sources) Histamine-1 Receptor Antagonist Start: 09-29-2019 End: 11-12-2020 take 1 tablet by mouth once daily Desloratadine 5 mg tablet Discontinued 5 mg PO DAILY September 29, 2019 12:00am November 12, 2020 1:18pm diazePAM 2 mg oral tablet (9 sources) Benzodiazepine Start: 2021 End: 03-07-2021 take 1-2 mg by mouth three times daily as needed for muscle spasms Diazepam (Valium) 2 mg tablet Discontinued 1 - 2 mg PO THREE TIMES A DAY as needed for spasm 2021 12:00am March 07, 2021 10:16am combination of Narcotic and benzodiazapine can cause respiratory depression and confusion, only take what is needed. diclofenac sodium 0.01 mg/mg topical gel (20 sources) Nonsteroidal Anti-inflammatory Drug Start: 02-22-2022 End: 09-21-2022 apply 4 g topically four times daily Diclofenac Sodium 1 % gel Discontinued 4 g TOPICAL .QID 100 February 22, 2022 12:00am September 21, 2022 2:43pm apply to single knee, ankle, foot; for foot includes sole/toes/top of foot Start: 02-22-2022 End: 09-21-2022 apply 4 g topically four times daily Diclofenac Sodium Discontinued 4 GM TOPICAL .QID February 22, 2022 12:00am September 21, 2022 2:43pm apply to single knee, ankle, foot; for foot includes sole/toes/top of foot Start: 11-14-2021 End: 03-28-2022 Diclofenac Sodium (Voltaren Arthritis Pain) 1 % gel Discontinued 4 g TOPICAL ONCE as needed for pain 100 December 29, 2021 2:36pm March 28, 2022 10:18am Start: 11-14-2021 End: 03-28-2022 Diclofenac Sodium (Voltaren Arthritis Pain) 1 % gel Discontinued 4 GM TOPICAL ONCE 100 December 29, 2021 2:36pm March 28, 2022 10:18am gabapentin 300 mg oral capsule (9 sources) Anti-epileptic Agent Start: 06-25-2020 End: 11-12-2020 take 1 capsule by mouth twice daily Gabapentin 300 mg capsule Discontinued 300 mg PO TWICE A DAY June 25, 2020 1:00am November 12, 2020 1:03pm icosapent ethyl 1000 mg oral capsule (18 sources) Start: 02-13-2020 End: 03-19-2020 Icosapent Ethyl (Vascepa) 1 gram capsule Discontinued 2 g PO TWICE A DAY 360 February 13, 2020 12:00am March 19, 2020 11:41am Start: 11-11-2019 End: 11-13-2019 Icosapent Ethyl (Vascepa) 1 gram capsule Discontinued 2 g PO TWICE A DAY 360 90 November 11, 2019 12:00am November 13, 2019 1:46pm Magnesium (9 sources) Start: 09-29-2019 End: 03-19-2020 take 200 mg by mouth once daily Magnesium Discontinued 200 MG PO DAILY September 29, 2019 1:57pm March 19, 2020 11:42am Start: 09-29-2019 End: 03-19-2020 take 1 tablet by mouth once daily Magnesium 200 mg tablet Discontinued 200 mg PO DAILY September 29, 2019 12:00am March 19, 2020 11:42am Start: 09-29-2019 End: 03-19-2020 take 200 mg by mouth once daily Magnesium Discontinued 200 MG PO DAILY September 29, 2019 12:00am March 19, 2020 11:42am meclizine hydrochloride 12.5 mg oral tablet (4 sources) Antiemetic Start: 02-13-2023 End: 09-20-2023 take 1 tablet by mouth three times daily as needed for dizziness Meclizine 12.5 mg Tablet Discontinued 12.5 mg PO 3 TIMES DAILY NEEDED as needed for Dizziness February 13, 2023 12:00am September 20, 2023 3:12pm methylPREDNISolone acetate 40 mg/ml injectable suspension (6 sources) Corticosteroid Start: 04-09-2020 End: 04-09-2020 Depo-Medrol (methylprednisolo ne acetate) 40 mg/mL suspension for injection Discontinued 40 MG INTRAARTIC ONCE April 09, 2020 9:28am April 09, 2020 10:10am Start: 10-06-2019 End: 10-06-2019 Depo-Medrol (methylprednisol one acetate) 40 mg/mL suspension for injection Discontinued 40 MG intrabursal ONCE October 06, 2019 10:47am October 06, 2019 11:19am Start: 09-29-2019 End: 09-29-2019 Depo-Medrol (methylprednisol one acetate) 40 mg/mL suspension for injection Discontinued 40 MG INTRAARTIC ONCE September 29, 2019 1:16pm September 29, 2019 1:55pm Miscellaneous Medical Supply (8 sources) Start: 01-10-2021 End: 04-04-2021 Miscellaneous Medical Supply Discontinued 1 EACH MC As Directed January 10, 2021 1:27pm April 04, 2021 10:04am Handicap placard for six months only. Start: 01-10-2021 End: 04-04-2021 Miscellaneous Medical Supply Discontinued 1 EACH MC As Directed January 10, 2021 12:00am April 04, 2021 10:04am Handicap placard for six months only. Miscellaneous Medical Supply misc (1 source) Start: 01-10-2021 End: 04-04-2021 Miscellaneous Medical Supply misc Discontinued 1 NMA MC As Directed January 10, 2021 12:00am April 04, 2021 10:04am Handicap placard for six months only. Multivitamin With Iron (8 sources) Start: 09-25-2017 End: 11-19-2019 take 1 tablet by mouth once daily Multivitamin With Iron Discontinued 1 TABLET PO daily September 25, 2017 8:09am November 19, 2019 4:42pm Start: 09-25-2017 End: 11-19-2019 take 1 tablet by mouth once daily Multivitamin With Iron Discontinued 1 TABLET PO daily September 25, 2017 12:00am November 19, 2019 4:42pm Multivitamin With Iron table t (1 source) Start: 09-25-2017 End: 11-19-2019 Multivitamin With Iron table t Discontinued 1 {tbl} PO daily September 25, 2017 12:00am November 19, 2019 4:42pm Energy 9-Ckp-Teq-Fish Oil (Energy-3 Fish Oil) 910-1,400 mg capsule (1 source) Start: 12-01-2019 End: 03-19-2020 Energy 8-Dux-Qpi-Fish Oil (Energy-3 Fish Oil) 910-1,400 mg capsule Discontinued NMA PO December 01, 2019 12:00am March 19, 2020 11:42am omega 0-vev-fev-fish oil 910 mg-1,400 mg capsule (8 sources) Start: 12-01-2019 End: 03-19-2020 omega 4-tfo-mou-fish oil 910 mg-1,400 mg capsule Discontinued CAP PO December 01, 2019 2:31pm March 19, 2020 11:42am Start: 12-01-2019 End: 03-19-2020 omega 1-swh-wwr-fish oil 910 mg-1,400 mg capsule Discontinued CAP PO December 01, 2019 12:00am March 19, 2020 11:42am omega-3 acid ethyl esters (fci) 1000 mg oral capsule (9 sources) Start: 11-13-2019 End: 12-01-2019 take 1 capsule by mouth twice daily Energy-3 Acid Ethyl Esters (Lovaza) 1 gram capsule Discontinued 1 NMA PO TWICE A DAY 180 November 13, 2019 12:00am December 01, 2019 2:29pm Energy-3 Fatty Acids (Fish Oil Concentrate) 1,000 mg capsule (9 sources) Start: 05-14-2020 End: 02-23-2021 Energy-3 Fatty Acids (Fish Oil Concentrate) 1,000 mg capsule Discontinued 2400 MG PO DAILY May 14, 2020 3:03pm February 23, 2021 12:51pm Start: 05-14-2020 End: 02-23-2021 Energy-3 Fatty Acids (Fish Oi l Concentrate) 1,000 mg capsule Discontinued 2400 mg PO DAILY May 14, 2020 1:00am February 23, 2021 12:51pm Start: 05-14-2020 End: 02-23-2021 Energy-3 Fatty Acids (Fish Oi l Concentrate) 1,000 mg capsule Discontinued 2400 MG PO DAILY May 14, 2020 1:00am February 23, 2021 12:51pm oxyCODONE hydrochloride 5 mg oral tablet (9 sources) Opioid Agonist Start: 02-23-2021 End: 03-07-2021 take 5-10 mg by mouth every four hours as needed for pain Oxycodone 5 mg Tablet Discontinued 5 - 10 mg PO EVERY 4 HOURS NEEDED as needed for Pain Score 4-10 60 7 February 23, 2021 March 07, 2021 10:16am simvastatin 80 mg oral tablet (20 sources) HMG-CoA Reductase Inhibitor Start: 01-06-2014 End: 03-20-2024 take 1 tablet by mouth once daily in the evening Simvastatin 80 mg tablet Discontinued 80 mg PO EVERY EVENING 90 November 10, 2022 8:33am March 20, 2024 3:31pm Zinc (9 sources) Start: 03-19-2020 End: 01-28-2021 take 50 mg by mouth once daily Zinc Discontinued 50 MG PO DAILY March 19, 2020 11:40am January 28, 2021 10:11am Start: 03-19-2020 End: 01-28-2021 take 1 tablet by mouth once daily Zinc 50 mg tablet Discontinued 50 mg PO DAILY March 19, 2020 12:00am January 28, 2021 10:11am Start: 03-19-2020 End: 01-28-2021 take 50 mg by mouth once daily Zinc Discontinued 50 MG PO DAILY March 19, 2020 12:00am January 28, 2021 10:11am Problems Active Problems Problem Classification Problem Date Documented Date Episodic/Chronic Cardiac dysrhythmias (14 sources) Paroxysmal atrial fibrillation; Translations: [Paroxysmal atrial fibrillation] Chronic Comment on above: RFA 02/2019; Disorders of lipid metabolism (20 sources) Hyperlipidemia; Translations: [Hyperlipidemia, unspecified] Onset: 01-06-2014 Chronic Essential hypertension (17 sources) Essential hypertension; Translations: [Essential (primary) hypertension] Chronic Hyperplasia of prostate (20 sources) Benign prostatic hyperplasia; Translations: [Benign prostatic hyperplasia without lower urinary tract symptoms] Onset: 01-06-2014 Chronic Immunizations and screening for infectious disease (12 sources) Contact with and (suspected) exposure to other viral communicable diseases; Translations: [Contact with or suspected exposure to other viral communicable disease] 07-26-2021 Episodic Occlusion or stenosis of precerebral arteries (13 sources) Carotid artery stenosis; Translations: [Occlusion and stenosis of unspecified carotid artery] Chronic Osteoarthritis (9 sources) Osteoarthritis of left knee joint; Translations: [Unilateral primary osteoarthritis, left knee] 07-26-2021 Chronic Other acquired deformities (1 source) Spondylolysis; Translations: [Spondylolysis, lumbar region] 05-02-2024 Episodic Other aftercare (9 sources) Follow-up status; Translations: [Encounter for other orthopedic aftercare] 07-26-2021 Episodic Other circulatory disease (1 source) Carotid bruit; Translations: [Other specified symptoms and signs involving the circulatory and respiratory systems] 12-09-2023 Episodic Other connective tissue disease (1 source) Presence of unspecified artificial knee joint; Translations: [Knee joint replacement] Chronic Other connective tissue disease (4 sources) Presence of left artificial knee joint; Translations: [Knee joint replacement] Onset: 01-23-2024 07-19-2023 Chronic Other connective tissue disease (1 source) History of total knee arthroplasty; Translations: [Presence of unspecified artificial knee joint] 01-23-2024 Chronic Other connective tissue disease (1 source) Heavy legs; Translations: [Other symptoms and signs involving the musculoskeletal system] 05-02-2024 Episodic Other injuries and conditions due to external causes (1 source) Injury of left peroneal nerve; Translations: [Injury of peroneal nerve at lower leg level, left leg, initial encounter] 03-20-2024 Episodic Other nervous system disorders (1 source) Nerve palsy; Translations: [Lesion of lateral popliteal nerve, left lower limb] 12-19-2023 Chronic Other nervous system disorders (1 source) Left leg peripheral neuropathy; Translations: [Lesion of lateral popliteal nerve, left lower limb] 03-06-2024 Chronic Other nervous system disorders (2 sources) Peripheral neuralgia; Translations: [Lesion of lateral popliteal nerve, left lower limb] 03-10-2024 Chronic Other nervous system disorders (1 source) Lesion of left common peroneal nerve; Translations: [Lesion of lateral popliteal nerve, left lower limb] 03-14-2024 Chronic Other nervous system disorders (2 sources) Lesion of lateral popliteal nerve, left lower limb; Translations: [Lesion of left lateral popliteal nerve] Onset: 03-06-2024 Chronic Other nervous system disorders (1 source) Neuropathy; Translations: [Polyneuropathy, unspecified] 03-19-2024 Chronic Other nervous system disorders (18 sources) Acute postoperative pain; Translations: [Other acute postprocedural pain] 07-26-2021 Episodic Other nervous system disorders (4 sources) Coordination problem; Translations: [Unspecified lack of coordination] 02-12-2023 Episodic Other nervous system disorders (1 source) Unspecified lack of coordination; Translations: [Lack of coordination] 02-13-2023 Episodic Other nervous system disorders (1 source) Abnormal gait; Translations: [Unspecified abnormalities of gait and mobility] 11-01-2023 Episodic Other nervous system disorders (1 source) Numbness of lower limb ; Translations: [Anesthesia of skin] 11-01-2023 Episodic Other non-epithelial cancer of skin (20 sources) History of malignant neoplasm of skin; Translations: [Personal history of other malignant neoplasm of skin] Onset: 01-06-2014 Episodic Other non-traumatic joint disorders (6 sources) Bilateral stiffness of joints of elbows; Translations: [Stiffness of right elbow, not elsewhere classified] 03-28-2022 Episodic Other non-traumatic joint disorders (1 source) Stiffness of right elbow, not elsewhere classified; Translations: [Stiffness of joint, not elsewhere classified, upper arm] 09-21-2022 Episodic Other non-traumatic joint disorders (5 sources) Pain in left knee; Translations: [Pain in joint, lower leg] 01-22-2023 Episodic Other upper respiratory disease (9 sources) Seasonal allergy; Translations: [Other seasonal allergic rhinitis] 11-12-2020 Chronic Other upper respiratory disease (1 source) Nasal congestion; Translations: [Nasal congestion] 03-20-2024 Episodic Spondylosis; intervertebral disc disorders; other back problems (2 sources) Low back pain; Translations: [Low back pain] 11-01-2023 Episodic Unclassified (2 sources) Low back pain, unspecified; Translations: [Low back pain, unspecified] Onset: 12-20-2023 Past or Other Problems Problem Classification Problem Date Documented Date Episodic/Chronic Conditions associated with dizziness or vertigo (11 sources) Dizziness; Translations: [Dizziness and giddiness] Onset: 04-07-2024 02-12-2023 Episodic Other eye disorders (10 sources) Abducens nerve palsy; Translations: [Sixth [abducent] nerve palsy, unspecified eye] Onset: 01-06-2014 06-06-2021 Episodic Other nervous system disorders (2 sources) Anesthesia of skin; Translations: [Anesthesia of skin] Onset: 12-20-2023 Episodic Other nervous system disorders (1 source) Unspecified abnormalities of gait and mobility; Translations: [Unspecified abnormalities of gait and mobility] Onset: 12-20-2023 Episodic Other screening for suspected conditions (not mental disorders or infectious disease) (10 sources) Raised prostate specific antigen; Translations: [Elevated prostate specific antigen [PSA]] Onset: 01-19-2014 01-19-2014 Episodic Residual codes; unclassified (9 sources) History of radiofrequency ablation operation for arrhythmia; Translations: [Other specified postprocedural states] Onset: 02-09-2019 08-09-2021 Episodic Results Test Name Value Interpretation Reference Range Facility Cardiology Visit Reporton Cardiology Visit Report [facility] [address] [place] [address] OFFICE VISIT Date of Service: 11/13/24 MR#: [id number] Acct: [id number] Name: RONEY LARSEN Rep #: [id number] : 1950 Provider: ROBERT bailey Age/Sex: 74/M [place] [facility] [place] Status: Signed HPI HPI History of Present Illness Details: 74-year-old gentleman with a history of atrial fibrillation status post A. fib ablation in February 2019 in [place]. He also has a past medical history of hypertension, hyperlipidemia, carotid artery stenosis, and skin cancer. He denies chest, arm, jaw, or neck discomfort. He denies palpitations. He denies bilateral lower extremity edema. He denies claudication. He denies shortness of breath with activity, shortness of breath at rest, orthopnea, or PND. He denies chronic cough. He denies significant, sudden weight gain. He has had some dizziness and vertigo. His blood pressure is borderline low. denies blood in urine, blood in stool, or epistaxis. He denies fever or chills. He denies myalgia. He denies fatigue. His exercise level has remained stable and limited by knee pain/orthopedic issues and walks regularly and doing water aerobics. Intake Vital Signs 11/13/23 15:25 07/02/24 13:49 11/13/24 15:10 11/13/24 15:14 Height 5 ft 11 in 5 ft 11 in 5 ft 11 in Weight: 196 lb BP 130/74 H Blood Pressure Location Lt brachial Position Sitting Respiration 18 Pulse 60 Pulse Source Monitor Intake Visit Reasons: 1 Y FU 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 Accompanied by: Self Is patient in pain?: No Allergies diazepam Adverse Reaction (Severe, Verified 11/13/24 15:12) hallucinations Opioids - Morphine Analogues Adverse Reaction (Severe, Verified 11/13/24 15:12) Other oxycodone Adverse Reaction (Severe, Verified 11/13/24 15:12) hallucinations Medications ???Medication ???Instructions ???Recorded ???Confirmed ???Type mwexcbft-wm-avtar 300 mcg-K 60 1 tab PO DAILY 09/29/19 11/13/24 H istory mcg-lycop 600 mcg-lutein 300 mcg tablet (Centrum Silver Men) niacin 100 mg tablet 500 mg PO DAILY 11/12/20 11/13/24 History pmaqhon-fgbaahvsy-aeg c 333 mg-133 1 tab PO DAILY 01/28/21 11/13/24 History mg-5 mg tablet cholecalciferol (vitamin D3) 50 50 mcg PO DAILY 02/08/21 11/13/24 History mcg (2,000 unit) capsule (Vitamin D3) ascorbate calcium (vitamin C) 500 500 mg PO DAILY 11/02/21 11/13/24 History mg tablet ibuprofen 400 mg tablet 600 mg PO BID PRN pain 03/28/22 History omega 0-ura-ttu-fish oil 1,200 mg 2 cap PO DAILY 03/28/22 11/13/24 History (144 mg-216 mg) capsule (Fish Oil) aspirin 81 mg tablet,delayed 81 mg PO DAILY 08/10/22 11/13/24 H istory release doxazosin 4 mg tablet (Cardura) 4 mg PO QDAY #90 tabs 02/04/2411/02 Rx fenofibrate 54 mg tablet 54 mg PO DAILY #90 tabs 02/04/24 0 11/13/24 Rx rosuvastatin 40 mg tablet 40 mg PO QDAY #90 tabs 03/20/24 Rx loratadine 10 mg tablet (Claritin) 10 mg PO DAILY allergy symptoms 05/05/24 11/13/24 Rx #90 tabs Have you fallen in the past year?: Yes (trip r/t vertigo) PFSH Medical History Nasal congestion Neuropathy Left knee pain Vertigo Flu vaccine need COVID BPPV (benign paroxysmal positional vertigo) Elbow joint stiffness, bilateral Carotid artery stenosis History of skin cancer Paroxysmal atrial fibrillation Wears glasses Cancer Ambulates with cane Non-smoker History of pain when walking Left knee DJD Seasonal allergies Knee pain Shoulder pain Arthritis History of squamous cell carcinoma Essential hypertension Hyperlipemia History of basal cell carcinoma BPH (benign prostatic hyperplasia) Surgical History History of eyelid surgery Hx of basal cell carcinoma excision Hx of colonoscopy History of basal cell carcinoma excision History of cardiac radiofrequency ablation (RFA) (02/2019) Hx of laminectomy Status post repair of anterior cruciate ligament Family History Father Heart disease COPD (chronic obstructive pulmonary disease) Brother Cancer melanoma Mother Paroxysmal atrial fibrillation Social History Smoking Status: Former smoker how long ago did patient quit smokin alcohol intake: current alcohol intake frequency: 0-2 drinks per day Alcohol type: beer details: rarely, social substance use type: does not use caffeine: Yes Type: carbonated beverages what type of physical activity do you participate in: walking frequency: daily ROS Const Const: Negative for fatigue or weakness Eyes Eyes: Negative for (more content not included)... Normal [facility] CNOVon 07-10-2024 CNOV Office Visit (SPNSMN ) MARARONEY KAUFMAN ([id number]) 1950 M Date Time Provider Department 07/10/24 4:30 PM LISET DOCKERY SPNS[facility] During your visit today, we recorded the following information about you: Pulse Blood pressure Weight Height 82/minute 150/64 91.2 kg 1.778 m Liset Dockery MD, PhD 07/30/2024 7:55 AM Signed [facility] Follow up/Established patient visit Individuals who were included in, or assisted with the encounter were: Roney Clevelandelizabet Dockery MD, PhD Ernie Juarez Chief Complaint/Issues: Roney Larsen is a 74 year old male seen in the [facility] for: Left peroneal neuropathy Initial HPI: Patient states that He had left knee replacement 3 years ago. After surgery he stated that the knee didn't feel right. He feels a constant numb and heaviness from his knee down. Can't walk for too long leg gets heavier can't ride his bike, pedaling agitates his symptoms. He denies difficulty lifting his left foot but states he tends to shuttle with small steps when he walks and catches himself before he falls. Patient also endorses intermittent numbness that radiates down the lateral side of knee and calf. Also has low back pain. Other PMH includes severe vertigo, Afib ablation in Feb; Patient did have an L4-5 and S1 lateral laminectomy in 1993. HPI/Interval History: The patient presents with pain in the left knee. The patient had a knee replacement in 2019. Two weeks after he had pain on the outside of his knee. It never got better, so he went to neurology. He got a steroid injection to the common peroneal nerve, which improved his distal leg symptoms but continued to have knee pain. It began to become heavier and he wasn't able to walk as far. This has worsened since his fall 2 days ago. He has more pain now due to this, and it feels like its pulsing. His pain also goes about his left knee. He gets pain when he puts his knee in weird positions. The heaviness feels constant. General Examination: BP 150/64 (BP Site: Right Arm, BP Position: Sitting, BP Cuff Size: Extra Large Adult) Pulse 82 Ht 177.8 cm (5' 10) Wt 91.2 kg (201 lb) SpO2 93% BMI 28.84 kg/m? General: Awake, alert, interactive, no acute distress, good nutritional status, normal development, well-kept Neurological Exam Mental Status Alert, fully oriented, attentive, with normal cognition, memory, speech and affect. Cranial Nerves Extraocular movements normal. No nystagmus, no ptosis, and pupils equal. Face symmetrical. Tongue normal. Motor Examination and Coordination Motor examination with normal bulk, strength and tone. Sensation Normal sensation in the left common peroneal nerve distribution No Tinel's at the fibular neck Gait Casual gait normal. Lab and Test Review: MRI L-spine 12/02 EMG/NCS 12/02 NEUROMUSCULAR ULTRASOUND/NEUROLOGY: 03/06/24 Ultrasonographic evaluation in the lateral decubitus position with the knee fully extended was performed of the left common peroneal nerve from the fibular head to popliteal fossa and left superficial peroneal nerve from mid-calf to ankle. The left common peroneal nerve and superficial peroneal nerves had normal cross-sectional area (CSA) throughout their visualized course, without evidence of entrapment or other focal pathology. Ultrasonographic evaluation of the left sciatic nerve from the popliteal fossa to gluteal cleft and of the left tibial nerve within the popliteal fossa. The left sciatic and tibial nerves had normal CSA throughout their visualized course, without evidence of entrapment or other focal pathology. No other obvious abnormality extrinsic to the visualized nerves is present. Assessment AND Plan 07/30/2024 - Spine, Liset Dockery MD, PhD ASSESSMENT The patient is a 74 year old male with left leg/knee pain PLAN His symptoms do not clearly fit a common peroneal neuropathy and unfortunately I only have a report but not the EMG/NCS study to determine the severity of the findings. I've recommended that he attempt an L5 epidural steroid injection to see if this improves his symptoms. He may follow up virtually after to discuss. I have also recommended he attempt Mobic for his knee stiffness to see if this improves. Encounter Diagnosis ICD-10-CM 1. Chronic pain of left knee M25.562 G89.29 Return for Virtual visit after epidural steroid injection. == Data Review Objective Current Outpatient Medications Medication Sig calcium/magnesium/zin c (CDXMYGW-CAJJODVRFK-K INC) 333-133-5 mg tab Take by mouth. YMCJIIVS-HZW-AM-LYCOP EN-LUTEIN ORAL Take by mouth. Fenofibrate (LOFIBRA) 54 mg tablet loratadine (CLARITIN) 10 mg tablet doxazosin 4 mg tablet Take 1 tablet by mouth daily at bedtime. meloxicam (MOBIC (more content not included)... Normal [facility] L/S Spine Min 4 Viewson 06-12 L/S Spine Min 4 Views [facility] [address] [place] [address] L/S Spine Min 4 Views MR#: [id number] Acct: [id number] Name: RONEY LARSEN Rep #: [id number] : 1950 M 74 From: El Araujo MD PCP: Dr. Rin Du MD Status: DEP AMB Study: L/S Spine Min 4 Views Date of Exam: 07/04/24 Exam# [id number] Ordering Dr: Marya Collier [id number] STUDY: X-RAY - LUMBAR SPINE REASON FOR EXAM: Male, 74 years old. Pain. TECHNIQUE: Upright frontal, lateral and lateral flexion and extension view(s) of the lumbar spine were obtained. COMPARISON: May 10, 2020 FINDINGS: Osteopenia. Normal lumbar lordosis. There is no substantial scoliosis. 7 mm of anterolisthesis of L5 on S1. Diffuse moderate lower thoracic and lumbosacral facet sclerosis. Diffuse intervertebral disc space narrowing most marked at L5-S1 with osteophytes and subchondral sclerosis. Limited flexion and extension with no abnormal motion. Marked vascular calcification. RAD/L/S Spine Min 4 Views IMPRESSION: Osteopenia with moderate lumbosacral spondylosis. Limited flexion and extension with no abnormal motion. Electronically Signed: El Araujo MD at 12:55 EST , CC: HEMANT Case; Dr. Rin Du MD Snowboarding Instructor: Signed Normal [facility] Orthopedic Visit Reporton Orthopedic Visit Report [facility] [address] [place] [address] [address] [place] [address] OFFICE VISIT Date of Service: 07/04/24 MR#: [id number] Acct: [id number] Name: RONEY LARSEN Rep #: [id number] : 1950 Provider: HEMANT Case Age/Sex: 74/M Location[place] [facility] Status: Signed Intake Vital Signs 03/20/24 14:57 07/02/24 13:49 Height 5 ft 11 in 5 ft 11 in Weight: 211 lb 8 oz BMI 29.5 BP 120/70 Blood Pressure Location Lt brachial Position Sitting Respiration 18 Pulse 74 Pulse Source Monitor Temp 97.6 F L Temp Source Temporal Pulse Oximetry (%) 99 Oxygen Delivery Method room air Intake Visit Reasons: LUMBAR SPINE Chief Complaint: Lumbar spine pain Allergies diazepam Adverse Reaction (Severe, Verified 07/04/24 13:37) hallucinations Opioids - Morphine Analogues Adverse Reaction (Severe, Verified 07/04/24 13:37) Other oxycodone Adverse Reaction (Severe, Verified 07/04/24 13:37) hallucinations Medications ???Medication ???Instructions ???Recorded ???Confirmed ???Type suhmjxge-cg-rhizc 300 mcg-K 60 1 tab PO DAILY 09/29/19 07/04/24 History mcg-lycop 600 mcg-lutein 300 mcg tablet (Centrum Silver Men) niacin 100 mg tablet 500 mg PO DAILY 11/12/20 07/04/24 History eagudfp-oiijwlvyc-axw c 333 mg-133 1 tab PO DAILY 01/28/21 07/04/24 History mg-5 mg tablet cholecalciferol (vitamin D3) 50 50 mcg PO DAILY 02/08/21 07/04/24 History mcg (2,000 unit) capsule (Vitamin D3) ascorbate calcium (vitamin C) 500 500 mg PO DAILY 11/02/21 07/04/24 History mg tablet ibuprofen 400 mg tablet 600 mg PO BID PRN pain 03/28/22 07/04/24 History omega 6-ocj-xdh-fish oil 1,200 mg 2 cap PO DAILY 03/28/22 07/04/24 History (144 mg-216 mg) capsule (Fish Oil) aspirin 81 mg tablet,delayed 81 mg PO DAILY 08/10/22 07/04/24 History release doxazosin 4 mg tablet (Cardura) 4 mg PO QDAY #90 tabs 02/04/24 07/04/24 Rx fenofibrate 54 mg tablet 54 mg PO DAILY #90 tabs 02/04/24 07/04/24 Rx rosuvastatin 40 mg tablet 40 mg PO QDAY #90 tabs 03/20/24 07/04/24 Rx loratadine 10 mg tablet (Claritin) 10 mg PO DAILY allergy symptoms 05/05/24 07/04/24 Rx #90 tabs Have you fallen in the past year?: No PFSH Medical History Nasal congestion Neuropathy Left knee pain Vertigo Flu vaccine need COVID BPPV (benign paroxysmal positional vertigo) Elbow joint stiffness, bilateral Carotid artery stenosis History of skin cancer Paroxysmal atrial fibrillation Wears glasses Cancer Ambulates with cane Non-smoker History of pain when walking Left knee DJD Seasonal allergies Knee pain Shoulder pain Arthritis History of squamous cell carcinoma Essential hypertension Hyperlipemia History of basal cell carcinoma BPH (benign prostatic hyperplasia) Surgical History History of eyelid surgery Hx of basal cell carcinoma excision Hx of colonoscopy History of basal cell carcinoma excision History of cardiac radiofrequency ablation (RFA) (02/2019) Hx of laminectomy Status post repair of anterior cruciate ligament Family History Father Heart disease COPD (chronic obstructive pulmonary disease) Brother Cancer melanoma Mother Paroxysmal atrial fibrillation Social History Smoking Status: Former smoker how long ago did patient quit smokin alcohol intake: current alcohol intake frequency: 0-2 drinks per day Alcohol type: beer details: rarely, social substance use type: does not use caffeine: Yes Type: carbonated beverages what type of physical activity do you participate in: walking frequency: daily HPI LUMBAR SPINE Details: This documentation accurately reflects the service provided and the decisions made by me, HEMANT Case 07/04/24 [id number]. Part of today???s visit was documented by Daphne Santillan LPN, acting as scribe. RONEY LARSEN is a 74 year old M here today for lumbar spine pain. After his last visit with Dr. Hunt in December 02 he did see a specialist at [facility] for peroneal nerve entrapment. He received steroid shots which was not effective in alleviating the pain. He is scheduled to see a peroneal surgeon next week. He reports increased left knee pain recently and is wondering if the pain is coming from his low back. He states the pain in his knee radiates up into his leg and back. He had a laminectomy in the s L4-S1 which helped relieve back and leg symptoms which were happening at that time. Says that he had injections in the past with pain management which was before the knee surgery, he did not think that he had much improvement at that time. He had a total knee replacemen (more content not included)... Normal [facility] Internal Medicine Office Vis iton 07-02-2024 Internal Medicine Office Visit [facility] [address] [place] [address] [place] [address] OFFICE VISIT Date of Service: 07/02/24 MR#: [id number] Acct: [id number] Name: RONEY LARSEN Rep #: [id number] : 1950 Provider: Dr. Rin bazan MD Age/Sex: 74/M Location: [facility] Status: Signed Intake Vital Signs 03/20/24 14:57 07/02/24 13:49 Height 5 ft 11 in 5 ft 11 in Weight: 211 lb 8 oz BMI 29.5 BP 120/70 Blood Pressure Location Lt brachial Position Sitting Respiration 18 Pulse 74 Pulse Source Monitor Temp 97.6 F L Temp Source Temporal Pulse Oximetry (%) 99 Oxygen Delivery Method room air Intake Visit Reasons: 3 M FU Chief Complaint: Follow-up 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 Accompanied by: Is patient in pain?: No Allergies diazepam Adverse Reaction (Severe, Verified 07/02/24 13:44) hallucinations Opioids - Morphine Analogues Adverse Reaction (Severe, Verified 07/02/24 13:44) Other oxycodone Adverse Reaction (Severe, Verified 07/02/24 13:44) hallucinations Medications ???Medication ???Instructions ???Recorded ???Confirmed ???Type lgqbcdxc-zr-cirow 300 mcg-K 60 1 tab PO DAILY 09/29/19 07/02/24 History mcg-lycop 600 mcg-lutein 300 mcg tablet (Centrum Silver Men) niacin 100 mg tablet 500 mg PO DAILY 11/12/20 07/02/24 History joljyyk-ttfjiqbwj-qkk c 333 mg-133 1 tab PO DAILY 01/28/21 07/02/24 History mg-5 mg tablet cholecalciferol (vitamin D3) 50 50 mcg PO DAILY 02/08/21 07/02/24 History mcg (2,000 unit) capsule (Vitamin D3) ascorbate calcium (vitamin C) 500 500 mg PO DAILY 11/02/21 07/02/24 History mg tablet ibuprofen 400 mg tablet 600 mg PO BID PRN pain 03/28/22 07/02/24 History omega 1-rmg-mtb-fish oil 1,200 mg 2 cap PO DAILY 03/28/22 07/02/24 History (144 mg-216 mg) capsule (Fish Oil) aspirin 81 mg tablet,delayed 81 mg PO DAILY 08/10/22 07/02/24 History release doxazosin 4 mg tablet (Cardura) 4 mg PO QDAY #90 tabs 02/04/24 07/02/24 Rx fenofibrate 54 mg tablet 54 mg PO DAILY #90 tabs 02/04/24 07/02/24 Rx rosuvastatin 40 mg tablet 40 mg PO QDAY #90 tabs 03/20/24 07/02/24 Rx loratadine 10 mg tablet (Claritin) 10 mg PO DAILY allergy symptoms 05/05/24 07/02/24 Rx #90 tabs Have you fallen in the past year?: No PFSH Medical History Nasal congestion Neuropathy Left knee pain Vertigo Flu vaccine need COVID BPPV (benign paroxysmal positional vertigo) Elbow joint stiffness, bilateral Carotid artery stenosis History of skin cancer Paroxysmal atrial fibrillation Wears glasses Cancer Ambulates with cane Non-smoker History of pain when walking Left knee DJD Seasonal allergies Knee pain Shoulder pain Arthritis History of squamous cell carcinoma Essential hypertension Hyperlipemia History of basal cell carcinoma BPH (benign prostatic hyperplasia) Surgical History History of eyelid surgery Hx of basal cell carcinoma excision Hx of colonoscopy History of basal cell carcinoma excision History of cardiac radiofrequency ablation (RFA) (02/2019) Hx of laminectomy Status post repair of anterior cruciate ligament Family History Father Heart disease COPD (chronic obstructive pulmonary disease) Brother Cancer melanoma Mother Paroxysmal atrial fibrillation Social History Smoking Status: Former smoker how long ago did patient quit smokin alcohol intake: current alcohol intake frequency: 0-2 drinks per day Alcohol type: beer details: rarely, social substance use type: does not use caffeine: Yes Type: carbonated beverages what type of physical activity do you participate in: walking frequency: daily HPI HPI Chief Complaint: Follow-up Details: RONEY LARSEN, is a 74 M who presents to the office today for follow-up of his chronic conditions. No acute concerns at this time. History of hyperlipidemia and at his last visit, was taken off simvastatin and switched to rosuvastatin. No concerns on this medication. Labs done prior to this visit with much better numbers. History of hypertension, blood pressure today at 120/70 mmHg. Taking his medication consistently. No chest pain, palpitation or shortness of breath. Chronic left knee area discomfort currently following up with a specialist at the [facility]. Had an injection to the left peroneal nerve which was thought to be responsible for the discomfort/numbness however this did not help. Now has an appointment scheduled with spine Ortho locally and a follow-up with the [facility] next week. Other chronic medical conditions are stable. ROS Const Constitutional: No body ache (more content not included)... Normal [facility] Comprehensive Metabolic Prof ilon 06-28-2024 Albumin [Mass/Vol] 3.9 g/dL Normal 3.2-5.0 [facility] Comment on above: Performed By: #### L 500.4100, L500.4050 #### [facility] [address] [place], [address] Albumin/Globulin [Mass ratio] 1.2 {ratio} Normal 0.9-2.4 [facility] Comment on above: Performed By: #### L 500.4100, L500.4050 #### [facility] [address] [place], [address] ALK P 60 U/L Normal 45-117 [facility] Comment on above: Performed By: #### L 500.4100, L500.4050 #### [facility] [address] [place], [address] ALT [Catalytic activity/Vol] 27 U/L Normal 16-61 [facility] Comment on above: Performed By: #### L 500.4100, L500.4050 #### [facility] [address] [place], [address] AST [Catalytic activity/Vol] 18 U/L Normal 15-37 [facility] Comment on above: Performed By: #### L 500.4100, L500.4050 #### [facility] [address] [place], [address] Bilirubin [Mass/Vol] 0.60 mg/dL Normal 0.20-1.00 [facility] Comment on above: Result Comment: For patients on eltrombopag therapy, use of Dimension Aurora TBIL is not recommended. Performed By: #### L 500.4100, L500.4050 #### [facility] [address] [place], [address] BUN/CRE 13.7 RATIO Normal 10-20 [facility] Comment on above: Performed By: #### L 500.4100, L500.4050 #### [facility] [address] [place], [address] CA,Total 9.3 mg/dL Normal 8.5-10.1 [facility] Comment on above: Performed By: #### L 500.4100, L500.4050 #### [facility] [address] [place], [address] Chloride [Moles/Vol] 111 mmol/L High 98-107 [facility] Comment on above: Performed By: #### L 500.4100, L500.4050 #### [facility] [address] [place], [address] CO2 [Moles/Vol] 25.0 mmol/L Normal 21.0-32.0 [facility] Comment on above: Performed By: #### L 500.4100, L500.4050 #### [facility] [address] [place], [address] Creatinine [Mass/Vol] 1.31 mg/dL High 0.70-1.30 [facility] Comment on above: Result Comment: The validity of the calculated GFR GFRAA in patients over 70 years has not been determined. Clinical correlation is essential. Performed By: #### L 500.4100, L500.4050 #### [facility] [address] [place], [address] EST GFR - AA 69 mL/min Normal >60 [facility] Comment on above: Result Comment: Afri can [place] GFR Calc Performed By: #### L 500.4100, L500.4050 #### [facility] [address] [place], [address] GAP 4 Low 5-15 [facility] Comment on above: Performed By: #### L 500.4100, L500.4050 #### [facility] [address] [place], [address] GFR/1.73 sq M.predicted among non-blacks MDRD (S/P/Bld) [Vol rate/Area] 57 mL/min/{1.73_m2} Low >60 [facility] Comment on above: Result Comment: Non- GFR Calc Performed By: #### L 500.4100, L500.4050 #### [facility] [address] [place], [address] Globulin (S) [Mass/Vol] 3.2 g/dL Normal 2.2-4.2 [facility] Comment on above: Performed By: #### L 500.4100, L500.4050 #### [facility] [address] [place], [address] Glucose [Mass/Vol] 97 mg/dL Normal 74-106 [facility] Comment on above: Performed By: #### L 500.4100, L500.4050 #### [facility] [address] [place], [address] Potassium [Moles/Vol] 3.8 mmol/L Normal 3.5-5.1 [facility] Comment on above: Performed By: #### L 500.4100, L500.4050 #### [facility] [address] [place], [address] Sodium [Moles/Vol] 140 mmol/L Normal 136-145 [facility] Comment on above: Performed By: #### L 500.4100, L500.4050 #### [facility] [address] [place], [address] T PROT 7.1 g/dL Normal 6.4-8.2 [facility] Comment on above: Performed By: #### L 500.4100, L500.4050 #### [facility] [address] [place], [address] Urea nitrogen [Mass/Vol] 18 mg/dL Normal 7-18 [facility] Comment on above: Performed By: #### L 500.4100, L500.4050 #### [facility] [address] [place], [address] Lipid Profileon 06-28-2024 Cholesterol [Mass/Vol] 113 mg/dL Normal 200 [facility] Comment on above: Result Comment: <200 mg/dL Desirable 200-240 mg/dL Borderline >240 mg/dL High Risk Performed By: #### L 500.4100, L500.4050 #### [facility] [address] [place], [address] Cholesterol in HDL [Mass/Vol] 45 mg/dL Normal [facility] Comment on above: Result Comment: The drugs N-Acetylcysteine and Metamizole may falsely depress this assay. Reference Range HDL <40 mg/dL Low HDL Cholesterol HDL >or= 60 mg/dL High HDL Cholesterol Performed By: #### L 500.4100, L500.4050 #### [facility] [address] [place], [address] Cholesterol in LDL [Mass/Vol] 35 mg/dL Normal 0-130 [facility] Comment on above: Performed By: #### L 500.4100, L500.4050 #### [facility] [address] [place], [address] Cholesterol in VLDL [Mass/Vol] 33 mg/dL Normal 5-40 [facility] Comment on above: Performed By: #### L 500.4100, L500.4050 #### [facility] [address] [place], [address] Triglyceride [Mass/Vol] 164 mg/dL Normal [facility] Comment on above: Result Comment: The drugs N-Acetylcysteine and Metamizole may falsely depress this assay. Serum Triglycerides Reference Interval Normal <150 mg/dL Borderline high 150 - 199 mg/dL High 200 - 499 mg/dL Very High > or = 500 mg/dL Performed By: #### L 500.4100, L500.4050 #### [facility] [address] [place], [address] [facility] Telephone (NIQ) RONEY LARSEN ([id number]) 1950 M Date Time Provider Department 06/26/24 LISET DOCKERY During your visit today, we recorded the following information about you: Ariellemahnaz Hassan Alma Delia 06/26/2024 9:18 AM Signed Pt called; has in-person appt with Dr. Dockery at 1:00 PM today. He wants to know if his appt can be switched to a virtual visit - [place] 50 miles [place] and the snow is very bad. Please advise if this can be accommodated or if he has to reschedule his appt. Dahlia Tyson, RN 06/26/2024 9:29 AM Signed Neuro SPINE CARE COORDINATION QUICK NOTE Noted. Reviewing with Dr. Driss Tyson, ANALYST PROGRAMMER Nurse Automobile Engine Assembler Alma Delia Desai 06/26/2024 10:[address] Dockery, appt must be in person; offered 07/10/24 at 4:30 PM. Patient accepted. Sending message to schedulers to reschedule appt from today to 07/10/24 at 4:30 PM. Allergies As of Date: 06/26/2024 Noted Allergy Reaction OPIOIDS - MORPHINE ANALOGUES 04/04/2021 1 - Mental Status Change POISON ARCELIA 12/31/2013 2 - Rash Date Reviewed: 04/09/2024 Reviewed by: Melani Benavidez RN - Fully Assessed Reason for Visit: Appointment Rescheduled [1024] Prescriptions as of 06/26/2024 - calcium/magnesium/zin c (EOWKMVX-LJYYOCMUOB-B INC) 333-133-5 mg tab Take by mouth. - GPURQIXX-QUO-LZ-LYCOP EN-LUTEIN ORAL Take by mouth. - Fenofibrate (LOFIBRA) 54 mg tablet - loratadine (CLARITIN) 10 mg tablet - doxazosin 4 mg tablet Take 1 tablet by mouth daily at bedtime. - simvastatin 80 mg tablet Take 1 tablet by mouth daily at bedtime. 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 Author Type: Fellow Type: H&P Filed: 04/09/2024 07:49 Note Text: UPDATED HISTORY AND PHYSICAL EXAMINATION PATIENT NAME: Roney Larsen SERVICE DATE: 04/09/2024 The History and Physical (completed in the past 30 days) has been reviewed and the patient has been examined. The contents accurately reflect the patient's condition with the following additions or revisions since the HANDP was completed. Examination indicates no changes. This HANDP can be found in the Electronic Medical Record dated 03/10/24. Denies allergy to iodine, steroids or local anesthetics. Denies infection or abx use in prior 10 days. Denies blood thinners. PHYSICAL EXAMINATION: VITAL SIGNS: 04/09/24 0737 BP: 153/66 Resp: 16 Temp: 36.3 ?C (97.3 ?F) TempSrc: Temporal SpO2: 97% Weight: 93.9 kg (207 lb) GENERAL: Well-developed, well-nourished male in no apparent distress with pleasant mood. HEENT: Head is normocephalic/atrauma tic. Nares appear normal. Moist mucous membranes without lesions. RESP: Non-labored breathing. CV: Extremities are warm and well-perfused. GI: Soft, NT / ND. SKIN: No rashes, lesions, ulceration or induration in the upper/lower extremities, trunk, or head/neck. PSYCH: Awake, alert and fully oriented. There is no evidence of cognitive or language dysfunction. Appropriate insight. Risk, benefits, and alternatives of surgery explained to patient by surgeon with explicit agreement by patient or patient loan representative before surgery. SIGNATURE: Gala Jett DO DATE: April 09, 2024 TIME: 7:34 AM Gala Jett DO, PGY-5 Spine Medicine Fellow Normal [facility] NURSING PROGon 04-09-2024 NURSING PROG HNO ID: [id number] Author: SUSAN SHANE RN Service: ? Author Type: Registered Nurse Type: Nursing Progress Note Filed: 04/14/2024 08:36 Note Text: Summary: post call Follow up phone call made regarding outcome of procedure. Patient states 0 % of pain relief since the procedure. What type of daily activity has improved? States he was not having pain before the procedure but was having tightness and heaviness. He states that has improved a little bit, but he said it just feels different He stated he is starting to feel things in leg that he did not feel before the procedure. Patient was able to wiggles toes and that was something new for him. He states he has to learn how to walk differently now that this has changed how it feels. Normal [facility] OPERATIVE NOon 04-09-2024 OPERATIVE NO HNO ID: [id number] Author: MICHELLE COTA DO Service: ? Author Type: Physician Type: Operative Report Filed: 04/09/2024 08:18 Note Text: Preprocedure diagnosis: left common peroneal neuropathy Postprocedure diagnosis: left common peroneal neuropathy Procedure:left common peroneal injection just above the fibular head with ultrasound guidance using the SpokenLayerort ultrasound chain and the linear transducer. Consent was obtained and placed in the chart I/primary surgeon/proceduralist , Michelle Cota DO, performed the procedure with assistance of the fellow Gala Jett DO. . Procedure: Patient was placed in the prone position on the table. The common peroneal nerve was visualized in short axis just above the fibular head. A trajectory was planned for in plane needle pathway from lateral to medial. The probe was removed. The skin was cleansed with ChloraPrep in usual sterile fashion. Sterile probe cover and sterile center were applied. Using sterile gloved hands and sterile technique the probe was again placed with the nerve in short axis. A 25-gauge 1.5 inch needle was advanced with in plane visualizationl to lie just adjacent to the nerve under the retinaculum. Under ultrasound visualization injection was carried out with a mixture 1.5cc lidocaine 2% and 0.5cc dexamethasone 10mg/cc preservative free. Injectate was seen to spread circumferentially around the nerve. The needle was removed. Patient tolerated the procedure well. There were no immediate complications. Results will be determined with the use of the pain diary. The patient will follow up with referring physician/provider. Normal [facility] Internal Medicine Office Vis richard 03-20-2024 Internal Medicine Office Visit [facility] [address] [place] [address] [place] [address] OFFICE VISIT Date of Service: 03/20/24 MR#: [id number] Acct: [id number] Name: RONEY LARSEN Rep #: [id number] : 1950 Provider: Dr. Rin bazan MD Age/Sex: 74/M Location[place] [facility] Status: Signed Intake Vital Signs 09/20/23 15:08 01/21/24 08:53 03/20/24 14:57 Height 5 ft 10 in 5 ft 11 in 5 ft 11 in Weight: 216 lb BMI 30.1 BP 122/68 H Blood Pressure Location Lt brachial Position Sitting Respiration 14 Pulse 66 Pulse Source Monitor Temp 98.1 F Temp Source Temporal Pulse Oximetry (%) 98 Oxygen Delivery Method room air Intake Visit Reasons: 6 M FU Chief Complaint: Follow-up clinic condition. Nasal congestion 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 Is patient in pain?: No Allergies diazepam Adverse Reaction (Severe, Verified 03/20/24 14:48) hallucinations Opioids - Morphine Analogues Adverse Reaction (Severe, Verified 03/20/24 14:48) Other oxycodone Adverse Reaction (Severe, Verified 03/20/24 14:48) hallucinations Medications ???Medication ???Instructions ???Recorded ???Confirmed ???Type klqzrdmm-jv-muywl 300 mcg-K 60 1 tab PO DAILY 09/29/19 03/20/24 History mcg-lycop 600 mcg-lutein 300 mcg tablet (Centrum Silver Men) niacin 100 mg tablet 500 mg PO DAILY 11/12/20 03/20/24 History sziiezq-xmuoxlmxn-dsl c 333 mg-133 1 tab PO DAILY 01/28/21 03/20/24 History mg-5 mg tablet cholecalciferol (vitamin D3) 50 50 mcg PO DAILY 02/08/21 03/20/24 History mcg (2,000 unit) capsule (Vitamin D3) ascorbate calcium (vitamin C) 500 500 mg PO DAILY 11/02/21 03/20/24 History mg tablet ibuprofen 400 mg tablet 600 mg PO BID PRN pain 03/28/22 03/20/24 History omega 0-gvp-rqp-fish oil 1,200 mg 2 cap PO DAILY 03/28/22 03/20/24 History (144 mg-216 mg) capsule (Fish Oil) aspirin 81 mg tablet,delayed 81 mg PO DAILY 08/10/22 03/20/24 History release doxazosin 4 mg tablet (Cardura) 4 mg PO QDAY #90 tabs 02/04/24 03/20/24 Rx fenofibrate 54 mg tablet 54 mg PO DAILY #90 tabs 02/04/24 03/20/24 Rx loratadine 10 mg tablet (Claritin) 10 mg PO DAILY allergy symptoms 02/04/24 03/20/24 Rx #90 tabs rosuvastatin 40 mg tablet 40 mg PO QDAY #90 tabs 03/20/24 03/20/24 Rx Have you fallen in the past year?: No PFSH Medical History (Updated 03/20/24 @ 16:[address] Rin Du MD) Nasal congestion Neuropathy Left knee pain Vertigo Flu vaccine need COVID BPPV (benign paroxysmal positional vertigo) Elbow joint stiffness, bilateral Carotid artery stenosis History of skin cancer Paroxysmal atrial fibrillation Wears glasses Cancer Ambulates with cane Non-smoker History of pain when walking Left knee DJD Seasonal allergies Knee pain Shoulder pain Arthritis History of squamous cell carcinoma Essential hypertension Hyperlipemia History of basal cell carcinoma BPH (benign prostatic hyperplasia) Surgical History History of eyelid surgery Hx of basal cell carcinoma excision Hx of colonoscopy History of basal cell carcinoma excision History of cardiac radiofrequency ablation (RFA) (02/2019) Hx of laminectomy Status post repair of anterior cruciate ligament Family History Father Heart disease COPD (chronic obstructive pulmonary disease) Brother Cancer melanoma Mother Paroxysmal atrial fibrillation Social History Smoking Status: Former smoker how long ago did patient quit smokin alcohol intake: current alcohol intake frequency: 0-2 drinks per day Alcohol type: beer details: rarely, social substance use type: does not use caffeine: Yes Type: carbonated beverages what type of physical activity do you participate in: walking frequency: daily HPI HPI Chief Complaint: Follow-up clinic condition. Nasal congestion Details: RONEY LARSEN, is a 74 M who presents to the office today for follow-up of his chronic medical conditions. Also has some concerns. Reports nasal congestion for about 2 weeks. Started after a flight. No chills, fever or otherwise feeling of unwell. Has not tried anything yqou-aty-qirpjrc. Chronic history of hyperlipidemia/trigly ceridemia. Recent labs done with worsening triglycerides. Currently on simvastatin and fenofibrate. Does not believe he has tried other statins in the past. Admits that he has not been as compliant with his diet. Also less active due to chronic pain. Following up at the [facility] for worsening left knee numbness. Consideration is for left peroneal nerve injury. Had a neuromuscular ultrasound done with no significant concerns noted. Plan is for steroid injection unde (more content not included)... Normal [facility] Vitamin B12on 03-19-2024 Cobalamin (Vitamin B12) [Mass/Vol] 922 pg/mL High 211-911 [facility] Comment on above: Performed By: #### L 503.0105 #### [facility] [address] [place], [address] CBC W/Diff, Automatedon 10-0 Absolute Lymph 1.41 X10 3/uL Normal 0.83-4.51 [facility] Comment on above: Performed By: #### L 501.9940, L500.4050, L500.4100, L100.0100 #### [facility] [address] [place], [address] Absolute Neut 2.2 X10 3/uL Normal 2.0-7.7 [facility] Comment on above: Performed By: #### L 501.9940, L500.4050, L500.4100, L100.0100 #### [facility] [address] [place], [address] Basophils/100 WBC (Bld) 0.7 % Normal 0-1 [facility] Comment on above: Performed By: #### L 501.9940, L500.4050, L500.4100, L100.0100 #### [facility] [address] [place], [address] Eosinophils/100 WBC (Bld) 2.0 % Normal 0-5 [facility] Comment on above: Performed By: #### L 501.9940, L500.4050, L500.4100, L100.0100 #### [facility] [address] [place], [address] Erythrocyte distribution width (RBC) [Ratio] 12.4 % Normal 11.6-14.6 [facility] Comment on above: Performed By: #### L 501.9940, L500.4050, L500.4100, L100.0100 #### [facility] [address] [place], [address] Hematocrit (Bld) [Volume fraction] 42.5 % Normal 40-54 [facility] Comment on above: Performed By: #### L 501.9940, L500.4050, L500.4100, L100.0100 #### [facility] [address] [place], [address] Hemoglobin (Bld) [Mass/Vol] 14.3 g/dL Normal 13.0-16.5 [facility] Comment on above: Performed By: #### L 501.9940, L500.4050, L500.4100, L100.0100 #### [facility] [address] [place], [address] IG% 0.200 Normal 0.0-0.9 [facility] Comment on above: Result Comment: IG% - Immature Granulocytes (promyelocytes, myelocytes and metamyelocytes) > 1% indicates that a LEFT SHIFT is Present. Performed By: #### L 501.9940, L500.4050, L500.4100, L100.0100 #### [facility] [address] [place], [address] Lymphocytes/100 WBC (Bld) 35.1 % Normal 19-41 [facility] Comment on above: Performed By: #### L 501.9940, L500.4050, L500.4100, L100.0100 #### [facility] [address] [place], [address] MCH (RBC) [Entitic mass] 31.6 pg Normal 27.0-32.0 [facility] Comment on above: Performed By: #### L 501.9940, L500.4050, L500.4100, L100.0100 #### [facility] [address] [place], [address] MCHC (RBC) [Mass/Vol] 33.6 g/dL Normal 32-36 [facility] Comment on above: Performed By: #### L 501.9940, L500.4050, L500.4100, L100.0100 #### [facility] [address] [place], [address] MCV (RBC) [Entitic vol] 94.0 fL Normal 80-94 [facility] Comment on above: Performed By: #### L 501.9940, L500.4050, L500.4100, L100.0100 #### [facility] [address] [place], [address] Monocytes/100 WBC (Bld) 8.0 % Normal 0-10 [facility] Comment on above: Performed By: #### L 501.9940, L500.4050, L500.4100, L100.0100 #### [facility] [address] [place], [address] Neutrophils/100 WBC (Bld) 54.0 % Normal 47-70 [facility] Comment on above: Performed By: #### L 501.9940, L500.4050, L500.4100, L100.0100 #### [facility] [address] [place], [address] Nucleated RBC (Bld) [#/Vol] 0 10*3/uL Normal 0-5 [facility] Comment on above: Performed By: #### L 501.9940, L500.4050, L500.4100, L100.0100 #### [facility] [address] [place], [address] Platelet mean volume (Bld) [Entitic vol] 10.1 fL Normal 6.2-12.0 [facility] Comment on above: Performed By: #### L 501.9940, L500.4050, L500.4100, L100.0100 #### [facility] [address] [place], [address] Platelets (Bld) [#/Vol] 181 10*3/uL Normal 150-450 [facility] Comment on above: Performed By: #### L 501.9940, L500.4050, L500.4100, L100.0100 #### [facility] [address] [place], [address] RBC (Bld) [#/Vol] 4.52 10*6/uL Low 4.6-6.2 [facility] Comment on above: Performed By: #### L 501.9940, L500.4050, L500.4100, L100.0100 #### [facility] [address] [place], [address] RDW SD 42.7 fl Normal 35.1-43.9 [facility] Comment on above: Performed By: #### L 501.9940, L500.4050, L500.4100, L100.0100 #### [facility] [address] [place], [address] WBC (Bld) [#/Vol] 4.0 10*3/uL Low 4.4-11.0 [facility] Comment on above: Performed By: #### L 501.9940, L500.4050, L500.4100, L100.0100 #### [facility] [address] [place], [address] Comprehensive Metabolic Prof [facility] 03-18-2024 Albumin [Mass/Vol] 3.8 g/dL Normal 3.2-5.0 [facility] Comment on above: Performed By: #### L 501.9940, L500.4050, L500.4100, L100.0100 #### [facility] [address] [place], [address] Albumin/Globulin [Mass ratio] 1.1 {ratio} Normal 0.9-2.4 [facility] Comment on above: Performed By: #### L 501.9940, L500.4050, L500.4100, L100.0100 #### [facility] [address] [place], [address] ALK P 67 U/L Normal 45-117 [facility] Comment on above: Performed By: #### L 501.9940, L500.4050, L500.4100, L100.0100 #### [facility] [address] [place], [address] ALT [Catalytic activity/Vol] 30 U/L Normal 16-61 [facility] Comment on above: Performed By: #### L 501.9940, L500.4050, L500.4100, L100.0100 #### [facility] [address] [place], [address] AST [Catalytic activity/Vol] 17 U/L Normal 15-37 [facility] Comment on above: Performed By: #### L 501.9940, L500.4050, L500.4100, L100.0100 #### [facility] [address] [place], [address] Bilirubin [Mass/Vol] 0.70 mg/dL Normal 0.20-1.00 [facility] Comment on above: Result Comment: For patients on eltrombopag therapy, use of Dimension Aurora TBIL is not recommended. Performed By: #### L 501.9940, L500.4050, L500.4100, L100.0100 #### [facility] [address] [place], [address] BUN/CRE 13.5 RATIO Normal 10-20 [facility] Comment on above: Performed By: #### L 501.9940, L500.4050, L500.4100, L100.0100 #### [facility] [address] [place], [address] CA,Total 9.7 mg/dL Normal 8.5-10.1 [facility] Comment on above: Performed By: #### L 501.9940, L500.4050, L500.4100, L100.0100 #### [facility] [address] [place], [address] Chloride [Moles/Vol] 109 mmol/L High 98-107 [facility] Comment on above: Performed By: #### L 501.9940, L500.4050, L500.4100, L100.0100 #### [facility] [address] [place], [address] CO2 [Moles/Vol] 26.0 mmol/L Normal 21.0-32.0 [facility] Comment on above: Performed By: #### L 501.9940, L500.4050, L500.4100, L100.0100 #### [facility] [address] [place], [address] Creatinine [Mass/Vol] 1.48 mg/dL High 0.70-1.30 [facility] Comment on above: Result Comment: The validity of the calculated GFR GFRAA in patients over 70 years has not been determined. Clinical correlation is essential. Performed By: #### L 501.9940, L500.4050, L500.4100, L100.0100 #### [facility] [address] [place], [address] EST GFR - AA 60 mL/min Normal >60 [facility] Comment on above: Result Comment: Afri can [place] GFR Calc Performed By: #### L 501.9940, L500.4050, L500.4100, L100.0100 #### [facility] [address] [place], [address] GAP 7 Normal 5-15 [facility] Comment on above: Performed By: #### L 501.9940, L500.4050, L500.4100, L100.0100 #### [facility] [address] [place], [address] GFR/1.73 sq M.predicted among non-blacks MDRD (S/P/Bld) [Vol rate/Area] 49 mL/min/{1.73_m2} Low >60 [facility] Comment on above: Result Comment: Non- GFR Calc Performed By: #### L 501.9940, L500.4050, L500.4100, L100.0100 #### [facility] [address] [place], [address] Globulin (S) [Mass/Vol] 3.4 g/dL Normal 2.2-4.2 [facility] Comment on above: Performed By: #### L 501.9940, L500.4050, L500.4100, L100.0100 #### [facility] [address] [place], [address] Glucose [Mass/Vol] 98 mg/dL Normal 74-106 [facility] Comment on above: Performed By: #### L 501.9940, L500.4050, L500.4100, L100.0100 #### [facility] [address] [place], [address] Potassium [Moles/Vol] 4.2 mmol/L Normal 3.5-5.1 [facility] Comment on above: Performed By: #### L 501.9940, L500.4050, L500.4100, L100.0100 #### [facility] [address] [place], [address] Sodium [Moles/Vol] 142 mmol/L Normal 136-145 [facility] Comment on above: Performed By: #### L 501.9940, L500.4050, L500.4100, L100.0100 #### [facility] [address] [place], [address] T PROT 7.2 g/dL Normal 6.4-8.2 [facility] Comment on above: Performed By: #### L 501.9940, L500.4050, L500.4100, L100.0100 #### [facility] [address] [place], [address] Urea nitrogen [Mass/Vol] 20 mg/dL High 7-18 [facility] Comment on above: Performed By: #### L 501.9940, L500.4050, L500.4100, L100.0100 #### [facility] [address] [place], [address] Lipid Profileon 03-18-2024 Cholesterol [Mass/Vol] 177 mg/dL Normal 200 [facility] Comment on above: Result Comment: <200 mg/dL Desirable 200-240 mg/dL Borderline >240 mg/dL High Risk Performed By: #### L 501.9940, L500.4050, L500.4100, L100.0100 #### [facility] [address] [place], [address] Cholesterol in HDL [Mass/Vol] 38 mg/dL Low [facility] Comment on above: Result Comment: The drugs N-Acetylcysteine and Metamizole may falsely depress this assay. Reference Range HDL <40 mg/dL Low HDL Cholesterol HDL >or= 60 mg/dL High HDL Cholesterol Performed By: #### L 501.9940, L500.4050, L500.4100, L100.0100 #### [facility] [address] [place], [address] LDL TNP Normal 0-130 [facility] Comment on above: Performed By: #### L 501.9940, L500.4050, L500.4100, L100.0100 #### [facility] [address] [place], [address] Triglyceride [Mass/Vol] 425 mg/dL High [facility] Comment on above: Result Comment: The drugs N-Acetylcysteine and Metamizole may falsely depress this assay. TRIGLYCERIDE IS GREATER THAN 400 mg/dL. LDL RESULT IS INVALID AND WILL NOT BE REPORTED. Serum Triglycerides Reference Interval Normal <150 mg/dL Borderline high 150 - 199 mg/dL High 200 - 499 mg/dL Very High > or = 500 mg/dL Performed By: #### L 501.9940, L500.4050, L500.4100, L100.0100 #### [facility] [address] [place], [address] VLDL TNP Normal 5-40 [facility] Comment on above: Performed By: #### L 501.9940, L500.4050, L500.4100, L100.0100 #### [facility] [address] [place], [address] PSA,Total- Diagnosticon 10-0 PSA, DIAGNOSTIC 4.34 ng/mL High 0.0-4.0 [facility] Comment on above: Result Comment: This test was performed using the TPSA assay method for the CO-Value chemistry system. Values obtained with different assay methods cannot be used interchangably. When changing PSA assays in the course of monitoring a patient, additional sequential testing should be carried out to confirm baseline values. Performed By: #### L 501.9940, L500.4050, L500.4100, L100.0100 #### [facility] [address] [place], [address] CNOVon 03-10-2024 CNOV Office Visit (SPNSMN ) RONEY LARSEN ([id number]) 1950 M Date Time Provider Department 03/10/24 3:40 PM LISET MENDOZA KVNGMN During your visit today, we recorded the following information about you: Pulse Respiration Blood pressure Weight 73/minute 12/minute 122/64 96.5 kg Height 1.778 m Liset Mendoza APRN.CNP 03/11/2024 2:40 PM Signed [facility] New Patient Evaluation Consulting Provider: No referring provider defined for this encounter. Individuals who were included in, or assisted with the encounter were: Roney Mendoza APRN.CNP Chief Complaint/Issues: Roney Clevelandelizabet is a 74 year old male seen in the [facility] for: Left peroneal neuropathy HPI: Patient states that He had left knee replacement 3 years ago. After surgery he stated that the knee didn't feel right. He feels a constant numb and heaviness from his knee down. Can't walk for too long leg gets heavier can't ride his bike, pedaling agitates his symptoms. He denies difficulty lifting his left foot but states he tends to shuttle with small steps when he walks and catches himself before he falls. Patient also endorses intermittent numbness that radiates down the lateral side of knee and calf. Also has low back pain. Other PMH includes severe vertigo, Afib ablation in Feb; Patient did have an L4-5 and S1 lateral laminectomy in 1993. General Examination: BP 122/64 Pulse 73 Resp 12 Ht 177.8 cm (5' 10) Wt 96.5 kg (212 lb 11.9 oz) SpO2 96% BMI 30.53 kg/m? He is accompanied by his spouse. General: Awake, alert, interactive, no acute distress, good nutritional status, normal development, well-kept General appearance: Awake, alert, interactive, no acute distress, good nutritional status, normal development, well-groomed Neurological Exam Mental Status Alert, fully oriented, attentive, with normal cognition, memory, speech and affect. Cranial Nerves Visual lai intact. Fundi with normal discs and vasculature. Pupils reactive. Extraocular movements conjugate and full. No ptosis. No nystagmus. Facial sensation intact. Face symmetric and strong. Palate and tongue normal. XI normal. Assessment AND Plan 03/11/2024 - Spine, Liset Mendoza APRN.ENTRY LEVEL FINANCE ASSESSMENT Patient presents with left leg numbness and heaviness s/p left knee replacement. Numbness is down the lateral knee and into calf, denies any falls. Also has low back pain and prior laminectomy over 30 years ago. Did PT after knee surgery without improvement. Feels his left leg is weaker than the right. Never felt the same since his knee surgery. Orthopedic MD states there was nothing wrong with implant. November 2023 MRI lumbar REPORT: L5 pars defects bilaterally. Minimal 3 mm anterolithesis. Unchanged (compared to 05/2020 MRI) moderate bilateral L5 foraminal stenosis November 2023 EMG report: left sided peroneal neuropathy with evidence of axon loss. No evidence of LS radiculopathy. Negative tinels over fibular head PLAN Patient has a condition that requires further work up and will continue to manage his medical condition. Discussed conservative vs surgical treatment for peroneal neuropathy including medications, injections and surgery. I reviewed with patient that in order to be a surgical candidate patient has to get diagnostic injection. Patient is agreeable to this and will follow up with me virtually after to see if it was successful. If successful will schedule patient with Dr Dockery to discuss peroneal nerve decompression. All questions answered. Considerations if diagnostic injection negative could try lumbar epidural. Encounter Diagnosis ICD-10-CM 1. Neuralgia of left peroneal nerve G57.32 SPINE INTERVENTION PROCEDURE No follow-ups on file. == Data Review Objective Current Outpatient Medications Medication Sig calcium/magnesium/zin c (NVMQSFY-JXSPWDNSGF-L INC) 333-133-5 mg tab Take by mouth. JVZFQOFP-CEH-MM-LYCOP EN-LUTEIN ORAL Take by mouth. Fenofibrate (LOFIBRA) 54 mg tablet loratadine (CLARITIN) 10 mg tablet doxazosin 4 mg tablet Take 1 tablet by mouth daily at bedtime. simvastatin 80 mg tablet Take 1 tablet by mouth daily at bedtime. No current facility-administered medications for this visit. ACTIVE PROBLEM LIST Bph (Benign Prostatic Hyperplasia) Hyperlipidemia Basal Cell Carcinoma of Skin Squamous Cell Skin Cancer Cranial Nerve Vi Palsy Well Adult Exam Elevated Psa PAST MEDICAL HISTORY Diagnosis Date BPH (benign prostatic hyperplasia) Hypercholesteremia PAST SURGICAL HISTORY Procedure Laterality Date PAST SURGICAL HISTORY OF 1992 Laminectomy Lumbar PAST SURGICAL HISTORY OF No ACL in left knee TONSILLECTOMY HX Social History Tobacco Use Smoking status: Former Smokeless toba (more content not included)... Normal [facility] CNOVon 03-06-2024 CNOV Office Visit (NENMMN ) RONEY LARSEN ([id number]) 1950 M Date Time Provider Department 03/06/24 4:00 PM GATITO OLIVIER NENMMN During your visit today, we recorded the following information about you: Gatito Olivier MD 03/06/2024 4:32 PM Signed Please see finalized ultrasound report filed under Procedures. Gatito Olivier MD Staff, [facility] [place] Allergies As of Date: 03/06/2024 Noted Allergy Reaction POISON ARCELIA 12/31/2013 2 - Rash Date Reviewed: 01/06/2014 Reviewed by: Veto See - Fully Assessed Primary Visit Diagnosis:Neuropathy of left peroneal nerve [G57.32] Order(s):US NEUROMUSCULAR (POC) NEUROLOGY USE ONLY [4117675] Order #: [id number]. #:[id number]: 1 Prescriptions as of 03/06/2024 - doxazosin 4 mg tablet Take 1 tablet by mouth daily at bedtime. - simvastatin 80 mg tablet Take 1 tablet by mouth daily at bedtime. 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 Rin Du MD Status: DEP AMB Study: Knee 3 Views Date of Exam: 01/23/24 Exam# [id number] Ordering Dr: Feroz Fairbanks DO [id number] STUDY: X-RAY - LEFT KNEE REASON FOR EXAM: Male, 73 years old. pain TECHNIQUE: 3 view(s) of the knee. COMPARISON: 01/22/2023 FINDINGS: Normal visualized distal femur. Normal visualized proximal tibia and fibula. Normal proximal tibiofibular articulation. Status post total knee arthroplasty. Prosthesis appears located. No ostial lysis to suggest loosening.. The soft tissue structures are unremarkable. RAD/Knee 3 Views IMPRESSION: Normal x-ray examination of the knee after total knee acromioplasty. Electronically Signed: Arturo Taylor MD at 13:08 EDT , CC: Dr. Rin Du MD; Dr. Feroz Fairbanks DO Snowboarding Instructor: Signed Normal [facility] Orthopedic Visit Reporton Orthopedic Visit Report [facility] [address] [place] [address] OFFICE VISIT Date of Service: 01/23/24 MR#: [id number] Acct: [id number] Name: HILARIORONEY GALLEGOS Rep #: [id number] : 1950 Provider: Dr. Feroz baugh DO Age/Sex: 73/M Location[facility] Status: Signed Intake Vital Signs 01/21/24 08:53 Height 5 ft 11 in Intake Visit Reasons: LEFT KNEE Chief Complaint: left knee pain Is patient in pain?: Yes (left) Pain scale (1-10): 4 Allergies diazepam Adverse Reaction (Severe, Verified 12/06/23 10:40) hallucinations Opioids - Morphine Analogues Adverse Reaction (Severe, Verified 12/06/23 10:40) Other oxycodone Adverse Reaction (Severe, Verified 12/06/23 10:40) hallucinations Have you fallen in the past year?: No PFSH Medical History Left knee pain Vertigo Flu vaccine need COVID BPPV (benign paroxysmal positional vertigo) Elbow joint stiffness, bilateral Carotid artery stenosis History of skin cancer Paroxysmal atrial fibrillation Wears glasses Cancer Ambulates with cane Non-smoker History of pain when walking Left knee DJD Seasonal allergies Knee pain Shoulder pain Arthritis History of squamous cell carcinoma Essential hypertension Hyperlipemia History of basal cell carcinoma BPH (benign prostatic hyperplasia) Surgical History History of eyelid surgery Hx of basal cell carcinoma excision Hx of colonoscopy History of basal cell carcinoma excision History of cardiac radiofrequency ablation (RFA) (02/2019) Hx of laminectomy Status post repair of anterior cruciate ligament Family History Father Heart disease COPD (chronic obstructive pulmonary disease) Brother Cancer melanoma Mother Paroxysmal atrial fibrillation Social History Smoking Status: Former smoker how long ago did patient quit smokin alcohol intake: current alcohol intake frequency: 0-2 drinks per day Alcohol type: beer details: rarely, social substance use type: does not use caffeine: Yes Type: carbonated beverages what type of physical activity do you participate in: walking frequency: daily HPI LEFT KNEE Chief Complaint: left knee pain Details: This documentation accurately reflects the service provided and the decisions made by me, Dr. Feroz aFirbanks, DO 01/23/24 0836. Part of today???s visit was documented by Rin AMADOR, acting as scribe. RONEY LARSEN is a 73 year old M here today for left knee pain. He had a left TKA 02-28-21. He started having numbness and tingling in his left lower extremity he did have an MRI of his lumbar spine he did have prior lumbar spine surgery including laminectomy MRI demonstrated mild right foraminal stenosis moderate left foraminal stenosis with nerve root compression L4-L5 L5-S1 chronic bilateral L5 pars defects with anterolisthesis moderate bilateral foraminal stenosis severe degenerative disc space narrowing He was seen by Dr. Hunt and was told he did not need any back surgery and EMG October 2023 which was read as 1. 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 A promixal response could not be obtained at the fibular head. 2. There is no electrodiagnostic evidence for lumbosacral radiculopathy. He was referred to a specialist for a peroneal nerve decompression at the [facility] however they required a ultrasound first which she has not yet received and is awaiting to be seen there He states on 01-14-24 he was standing and his knee turned inward and as it did he heard and felt a pop behind his knee, he did not have any bruising or swelling. Since then the knee is weaker and less stable. He is now using a cane d/t the instability. He states he is now having shooting pains all around the left knee. Ortho Exam General General: Yes no acute distress Neurologic: Yes alert and Yes oriented x3 Psychologic: Yes reasonable and appropriate Right Knee Patella Translation: 1 Left Knee Skin/Wound: No ecchymosis, No erythema and No swelling Homans Sign: No Knee ROM: Yes ROM-Extension -20 to 0 and Yes ROM-Flexion 0-140 Examination: Yes med jt line tenderness, Yes Lat jt line tenderness and No Crepitus Stability: NML: Anterior Drawer, NML: Posterior Drawer, NML: Valgus 0, NML: Valgus 30, NML: Varus 0 and NML: Varus 30 Patella Translation: 1 KNEE: no effusion no anterior/posterior instability Supplemental Info 01/23/2024 x-ray left knee: Status post press-fit total knee arthroplasty with good interfaces and position 11/01/23 em. Electrodiagnostic findings suggestive of left-sided peroneal neuropathy, with (more content not included)... Normal [facility] Orthopedic Visit Reporton Orthopedic Visit Report [facility] [address] [place] [id number] OFFICE VISIT Date of Service: 12/06/23 MR#: [id number] Acct: [id number] Name: RONEY LARSEN EL Rep #: [id number] : 1950 Provider: Dr. Jayjay staley, DO Age/Sex: 73/M Location: [facility] Status: Signed Intake Vital Signs 11/29/23 15:57 12/04/23 10:49 Height 5 ft 11 in 5 ft 11 in Weight: 210 lb BMI 29.2 BP 130/72 H Blood Pressure Location Lt brachial Position Sitting Respiration 16 Pulse 72 Pulse Source Monitor Temp 98.3 F Temp Source Temporal Pulse Oximetry (%) 97 Oxygen Delivery Method room air Intake Visit Reasons: LUMBAR SPINE Chief Complaint: Numbness in left knee and foot Accompanied by: Is patient in pain?: No Allergies diazepam Adverse Reaction (Severe, Verified 12/06/23 10:40) hallucinations Opioids - Morphine Analogues Adverse Reaction (Severe, Verified 12/06/23 10:40) Other oxycodone Adverse Reaction (Severe, Verified 12/06/23 10:40) hallucinations Medications ???Medication ???Instructions ???Recorded ???Confirmed ???Type grjufqbt-ff-ifynx 300 mcg-K 60 1 tab PO DAILY 09/29/19 12/06/23 History mcg-lycop 600 mcg-lutein 300 mcg tablet (Centrum Silver Men) niacin 100 mg tablet 500 mg PO DAILY 11/12/20 12/06/23 History dhfaqkh-dprzedogn-kvf c 333 mg-133 1 tab PO DAILY 01/28/21 12/06/23 History mg-5 mg tablet cholecalciferol (vitamin D3) 50 50 mcg PO DAILY 02/08/21 12/06/23 History mcg (2,000 unit) capsule (Vitamin D3) ascorbate calcium (vitamin C) 500 500 mg PO DAILY 11/02/21 12/06/23 History mg tablet ibuprofen 400 mg tablet 600 mg PO BID PRN pain 03/28/22 12/06/23 History omega 4-ceb-mhg-fish oil 1,200 mg 2 cap PO DAILY 03/28/22 12/06/23 History (144 mg-216 mg) capsule (Fish Oil) aspirin 81 mg tablet,delayed 81 mg PO DAILY 08/10/22 12/06/23 History release simvastatin 80 mg tablet 80 mg PO QPM #90 tabs 11/10/22 12/06/23 Rx doxazosin 4 mg tablet (Cardura) 4 mg PO QDAY #90 tabs 02/06/23 12/06/23 Rx fenofibrate 54 mg tablet 54 mg PO DAILY #90 tabs 02/06/23 12/06/23 Rx loratadine 10 mg tablet (Claritin) 10 mg PO DAILY allergy symptoms 11/07/23 12/06/23 Rx #90 tabs Have you fallen in the past year?: No PFSH Medical History Left knee pain Vertigo Flu vaccine need COVID BPPV (benign paroxysmal positional vertigo) Elbow joint stiffness, bilateral Carotid artery stenosis History of skin cancer Paroxysmal atrial fibrillation Wears glasses Cancer Ambulates with cane Non-smoker History of pain when walking Left knee DJD Seasonal allergies Knee pain Shoulder pain Arthritis History of squamous cell carcinoma Essential hypertension Hyperlipemia History of basal cell carcinoma BPH (benign prostatic hyperplasia) Surgical History History of eyelid surgery Hx of basal cell carcinoma excision Hx of colonoscopy History of basal cell carcinoma excision History of cardiac radiofrequency ablation (RFA) (02/2019) Hx of laminectomy Status post repair of anterior cruciate ligament Family History Father Heart disease COPD (chronic obstructive pulmonary disease) Brother Cancer melanoma Mother Paroxysmal atrial fibrillation Social History Smoking Status: Former smoker how long ago did patient quit smokin alcohol intake: current alcohol intake frequency: 0-2 drinks per day Alcohol type: beer details: rarely, social substance use type: does not use caffeine: Yes Type: carbonated beverages what type of physical activity do you participate in: walking frequency: daily HPI LUMBAR SPINE Details: This documentation accurately reflects the service provided and the decisions made by me, Dr. Jayjay Hunt, DO 12/06/23 1037. Part of today???s visit was documented by Akiko COLEMAN acting as scribe. RONEY LARSEN is a 73 year old M here today for numbness in the outside left knee and numbness in his left foot. Patient had a EMG done on 11/28/2023. Patient would like to see what the next steps are. Roney returns in the company of his . Is been having numbness on the lateral side of the left leg starting about the area of the fibular head. Dr. Landin ordered EMG nerve conduction studies recently that demonstrated that he has peroneal neuropathy in the left leg. The patient feels that it is getting worse. On examination he does have some EHL weakness on the left side. But he has good anterior tibialis strength and good peroneal strength also. He does have dysesth (more content not included)... Normal [facility] Internal Medicine Office Vis richard 11-29-2023 Internal Medicine Office Visit [facility] [address] [place] [address] [place] [address] OFFICE VISIT Date of Service: 11/29/23 MR#: [id number] Acct: [id number] Name: RONEY LARSEN Rep #: [id number] : 1950 Provider: Dr. Rin bazan MD Age/Sex: 73/M Location[place] [facility] Status: Signed Intake Vital Signs 11/13/23 15:25 11/29/23 15:57 Height 5 ft 11 in 5 ft 11 in Weight: 210 lb 210 lb BMI 29.2 29.2 BP 100/56 L 130/72 H Blood Pressure Location Lt brachial Lt brachial Position Sitting Sitting Respiration 16 16 Pulse 59 L 72 Pulse Source Monitor Monitor Temp 98.3 F Temp Source Temporal Pulse Oximetry (%) 97 Oxygen Delivery Method room air Intake Visit Reasons: med follow up Chief Complaint: Discuss medication. 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 Is patient in pain?: No Allergies diazepam Adverse Reaction (Severe, Verified 11/29/23 15:53) hallucinations Opioids - Morphine Analogues Adverse Reaction (Severe, Verified 11/29/23 15:53) Other oxycodone Adverse Reaction (Severe, Verified 11/29/23 15:53) hallucinations Medications ???Medication ???Instructions ???Recorded ???Confirmed ???Type axhompvo-du-gvuzv 300 mcg-K 60 1 tab PO DAILY 09/29/19 11/29/23 History mcg-lycop 600 mcg-lutein 300 mcg tablet (Centrum Silver Men) niacin 100 mg tablet 500 mg PO DAILY 11/12/20 11/29/23 History hzwyrew-updeumdti-odw c 333 mg-133 1 tab PO DAILY 01/28/21 11/29/23 History mg-5 mg tablet cholecalciferol (vitamin D3) 50 50 mcg PO DAILY 02/08/21 11/29/23 History mcg (2,000 unit) capsule (Vitamin D3) ascorbate calcium (vitamin C) 500 500 mg PO DAILY 11/02/21 11/29/23 History mg tablet ibuprofen 400 mg tablet 600 mg PO BID PRN pain 03/28/22 11/29/23 History omega 7-owi-bah-fish oil 1,200 mg 2 cap PO DAILY 03/28/22 11/29/23 History (144 mg-216 mg) capsule (Fish Oil) aspirin 81 mg tablet,delayed 81 mg PO DAILY 08/10/22 11/29/23 History release simvastatin 80 mg tablet 80 mg PO QPM #90 tabs 11/10/22 11/29/23 Rx doxazosin 4 mg tablet (Cardura) 4 mg PO QDAY #90 tabs 02/06/23 11/29/23 Rx fenofibrate 54 mg tablet 54 mg PO DAILY #90 tabs 02/06/23 11/29/23 Rx loratadine 10 mg tablet (Claritin) 10 mg PO DAILY allergy symptoms 11/07/23 11/29/23 Rx #90 tabs Nurse's Note: Dr. Meier suggested stopped cardura due to vertigo, he did and it helped however prostate started acting up so he went back on it. Was wondering about alternatives for vertigo. Saw Dr. Delaney got a diagnosis and wanted to discuss your thoughts on it. [facility] Medical History Left knee pain Vertigo Flu vaccine need COVID BPPV (benign paroxysmal positional vertigo) Elbow joint stiffness, bilateral Carotid artery stenosis History of skin cancer Paroxysmal atrial fibrillation Wears glasses Cancer Ambulates with cane Non-smoker History of pain when walking Left knee DJD Seasonal allergies Knee pain Shoulder pain Arthritis History of squamous cell carcinoma Essential hypertension Hyperlipemia History of basal cell carcinoma BPH (benign prostatic hyperplasia) Surgical History History of eyelid surgery Hx of basal cell carcinoma excision Hx of colonoscopy History of basal cell carcinoma excision History of cardiac radiofrequency ablation (RFA) (02/2019) Hx of laminectomy Status post repair of anterior cruciate ligament Family History Father Heart disease COPD (chronic obstructive pulmonary disease) Brother Cancer melanoma Mother Paroxysmal atrial fibrillation Social History Smoking Status: Former smoker how long ago did patient quit smokin alcohol intake: current alcohol intake frequency: 0-2 drinks per day Alcohol type: beer details: rarely, social substance use type: does not use caffeine: Yes Type: carbonated beverages what type of physical activity do you participate in: walking frequency: daily HPI HPI Chief Complaint: Discuss medication. Details: RONEY LARSEN, is a 73 M who presents to the office today to discuss medication. Chronic history of vertigo. At his last visit with cardiology, recommendation was made to hold doxazosin to see if this helps. He held it for first for 2 days but restarted after about 4 days due to worsening BPH symptoms which doxazosin was prescribed for in the first place. He states that the dizziness is not necessarily concerning. Feels slightly foggy and he would rather stay on doxazosin than deal with the urinary concerns. Has been back on doxazosin for a few days now. Recently had an EMG done which showed concern for peroneal (more content not included)... Normal [facility] NCS and/or EMG Patienton NCS and/or EMG Patient [facility] Pulmonary Services/Neurology [address] [place] [address] MR#: [id number] Acct: [id number] Name: RONEY LARSEN Rep #: [id number] : 1950 73 From: Jamie Whaley MD Referring Dr: Miller Delaney MD Status: REG CL I Location: PSN Date: 11/28/23 Sex: M C NCS and/or EMG Patient Report Ordering Doctor: Miller Delaney DATE OF SERVICE: 11/28/23 Roney presents with complaints of left lower leg numbness and heaviness. Electrodiagnostic Findings: The left peroneal motor nerve demonstrates borderline prolonged distal latency with reduced amplitude. A response could not be obtained at the fibular head. Left tibial motor nerve demonstrates normal distal latency, amplitude and conduction velocity. Absent left peroneal F???wave. Normal left sural and superficial peroneal responses. Needle EMG testing was performed the left lower limb. The left tibialis anterior showed presence of complex repetitive discharges. Reaction potentials were normal amplitude and duration. Electrodiagnostic impression: This is an abnormal study in the left lower limb 1. 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 A promixal response could not be obtained at the fibular head. 2. There is no electrodiagnostic evidence for lumbosacral radiculopathy. Multi Select Codes Neurology Neurology Interp Codes: 65536-98 Musc test done w/n test comp (interp) and 17206-34 Nrv cndj tst 5-6 studies (interp) 11/28/23 1342 Date Jamie Whaley MD CC: Dr. Jamie Whaley MD; Dr. Rin Du MD; Dr. Miller Delaney MD Date Dictated: 11/28/231337 Date Transcribed: 11/28/231337 Snowboarding Instructor: AA Signed Normal [facility] Basophil percentageOrdered B y: Rin Du on 09-20-2023 Chloride [Moles/Vol] 112 mmol/L 98-107 [facility] Glucose [Mass/Vol] 117 mg/dL 74-106 [facility] Comment on above: Fasting Glucose resu lt from 100 to 125 mg/dL suggests IMPAIRED HOMEOSTASIS per A.D.A. criteria. Potassium [Moles/Vol] 4.0 mmol/L 3.5-5.1 [facility] Sodium [Moles/Vol] 141 mmol/L 136-145 [facility] Laboratory - Chemistry and C hemistry - challengeOrdered By: Rin Du on 09-20-2023 CO2 [Moles/Vol] 28.0 mmol/L 21.0-32.0 [facility] Urea nitrogen/Creatinine [Mass ratio] 15.3 mg/mg 10-20 [facility] No Panel InformationOrdered By: Rin Du on 09-20-2023 Estimated GFR (MDRD) Amer 69 mL/min >60 [facility] Comment on above: GFR Calc Estimated GFR (MDRD) Non-Af Amer 57 mL/min >60 [facility] Comment on above: Non- GFR Calc Serum or plasma calcium zaynab urement (mass/volume)Ordered By: Rin Du on 09-20-2023 Calcium [Mass/Vol] 9.1 mg/dL 8.5-10.1 [facility] Serum or plasma creatinine m easurement (mass/volume)Ordered By: Rin Du on 09-20-2023 Creatinine [Mass/Vol] 1.31 mg/dL 0.70-1.30 [facility] Comment on above: The validity of the calculated GFR & GFRAA in patients over 70 years has not been determined. Clinical correlation is essential. Serum or plasma urea nitroge n measurement (mass/volume)Ordered By: Wesron Whittenbrii on 09-20-2023 Urea nitrogen [Mass/Vol] 20 mg/dL 7-18 [facility] Thin prep Papanicolaou smear with manual screeningOrdered By: Wesgegedanae Du on 09-20-2023 Thin prep Papanicolaou smear with manual screening 1 5-15 [facility] Basophil percentageOrdered B y: Rin Du on 09-12-2023 Basophil percentage 4.21 ng/mL 0.0-4.0 [facility] Comment on above: This test was perfor med using the TPSA assay method for the[facility]. Values obtained with differentassay methods cannot be used interchangably.When changing PSA assays in the course of monitoring apatient, additional sequential testing should be carriedout to confirm baseline values. Absolute lymphocyte countOrd ered By: Noel Banegas on 02-12-2023 Lymphocytes Auto (Unsp spec) [#/Vol] 1.39 10*3/uL 0.83-4.51 [facility] Basophil percentageOrdered B y: Abhay Lopez on 02-12-2023 Basophil percentage 0 SEEN /hpf 0-5 [facility] Cholesterol [Mass/Vol] 132 mg/dL <200 [facility] Comment on above: <200 mg/dL Desirable 200-240 mg/dL Borderline >240 mg/dL High Risk Triglyceride [Mass/Vol] 236 mg/dL <199 [facility] Comment on above: The drugs N-Acetylcy steine and Metamizole may falsely depress this assay.Serum Triglycerides Reference Interval Normal <150 mg/dL Borderline high 150 - 199 mg/dL High 200 - 499 mg/dL Very High > or = 500 mg/dL Basophil percentageOrdered B y: Noel Banegas on 02-12-2023 Basophils/100 WBC (Bld) 0.2 % 0-1 [facility] Chloride [Moles/Vol] 110 mmol/L 98-107 [facility] Eosinophils/100 WBC (Bld) 1.4 % 0-5 [facility] Glucose [Mass/Vol] 109 mg/dL 74-106 [facility] Comment on above: Fasting Glucose resu lt from 100 to 125 mg/dL suggests IMPAIRED HOMEOSTASIS per A.D.A. criteria. Neutrophils (Bld) [#/Vol] 2.6 10*3/uL 2.0-7.7 [facility] Neutrophils/100 WBC (Bld) 59.1 % 47-70 [facility] Potassium [Moles/Vol] 4.0 mmol/L 3.5-5.1 [facility] Sodium [Moles/Vol] 140 mmol/L 136-145 [facility] WBC (Bld) [#/Vol] 4.3 10*3/uL 4.4-11.0 [facility] Bilirubin Test strip Ql (U)O rdered By: Abhay Lopez on 02-12-2023 Bilirubin Ql (U) Negative Negative [facility] Blood erythrocytes count (nu mber/volume)Ordered By: Noel Banegas on 02-12-2023 RBC (Bld) [#/Vol] 4.42 10*6/uL 4.6-6.2 [facility] Blood hemoglobin measurement (mass/volume)Ordered By: Noel Banegas on 02-12-2023 Hemoglobin (Bld) [Mass/Vol] 14.2 g/dL 13.0-16.5 [facility] Blood lymphocytes/100 leukoc ytesOrdered By: Noel Banegas on 02-12-2023 Lymphocytes/100 WBC (Bld) 32.2 % 19-41 [facility] Blood monocytes/100 leukocyt esOrdered By: Noel Banegas on 02-12-2023 Monocytes/100 WBC (Bld) 6.9 % 0-10 [facility] Blood platelet mean volumeOr dered By: Noel Banegas on 02-12-2023 Platelet mean volume (Bld) [Entitic vol] 9.5 fL 6.2-12.0 [facility] Determination of erythrocyte mean corpuscular volume (MCV)Ordered By: Noel Banegas on 02-12-2023 MCV (RBC) [Entitic vol] 96.4 fL 80-94 [facility] Glucose Glucometer (BldC) [M ass/Vol]Ordered By: Noel Banegas on 02-12-2023 Glucose [Mass/Vol] 128 mg/dL 74-106 [facility] Comment on above: MANAGEMENT OF PATIEN T CARE PER NURSING PROTOCOL Hematocrit Auto (Bld) [Volum e fraction]Ordered By: Noel Banegas on 02-12-2023 Hematocrit (Bld) [Volume fraction] 42.6 % 40-54 [facility] INR in Blood by Coagulation assayOrdered By: Noelhoward Banegas on 02-12-2023 INR Coag (Bld) [Relative time] 1.1 {INR} [facility] Ketones Test strip Ql (U)Ord ered By: Abhay Lopez on 02-12-2023 Ketones Ql (U) Negative Negative [facility] Laboratory - Chemistry and C hemistry - challengeOrdered By: Noel Banegas on 02-12-2023 CO2 [Moles/Vol] 26.0 mmol/L 21.0-32.0 [facility] Urea nitrogen/Creatinine [Mass ratio] 16.7 mg/mg 10-20 [facility] Laboratory - CoagulationOrde red By: Noel Banegas on 02-12-2023 aPTT Coag (Bld) [Time] 29.7 s 24.1-36.2 [facility] PT Coag (PPP) [Time] 14.1 s 11.7-14.9 [facility] Laboratory - Hematology and Cell countsOrdered By: Noel Banegas on 02-12-2023 Erythrocyte distribution width (RBC) [Entitic vol] 43.0 fL 35.1-43.9 [facility] Erythrocyte distribution width (RBC) [Ratio] 12.2 % 11.6-14.6 [facility] Immature granulocytes/100 WBC (Bld) 0.200 % 0.0-0.9 [facility] Comment on above: IG% - Immature Granu locytes (promyelocytes, myelocytes and metamyelocytes) > 1% indicates that a LEFT SHIFT is Present. MCH (RBC) [Entitic mass] 32.1 pg 27.0-32.0 [facility] Nucleated RBC/100 WBC (Bld) [Ratio] 0 % 0-5 [facility] MCHC Auto (RBC) [Mass/Vol]Or dered By: Noel Banegas on 02-12-2023 MCHC (RBC) [Mass/Vol] 33.3 g/dL 32-36 [facility] Mucus LM Ql (Urine sed)Order ed By: Abhay Lopez on 02-12-2023 Mucus Ql (Urine sed) 0 SEEN /hpf [facility] Nitrite Test strip Ql (U)Ord ered By: Abhay Lopez on 02-12-2023 Nitrite Ql (U) Negative Negative [facility] No Panel InformationOrdered By: Noel Banegas on 02-12-2023 Estimated Creatinine Clearance Calc 47.88 ml/min [facility] Estimated GFR (MDRD) Amer 62 mL/min >60 [facility] Comment on above: GFR Calc Estimated GFR (MDRD) Non-Af Amer 51 mL/min >60 [facility] Comment on above: Non- GFR Calc Troponin I High Sensitivity 9 pg/mL 3.0-78.0 [facility] Comment on above: Please Note: New Denise t Units and Gender Specific Reference Ranges. For more information see Policy Stat Procedure [facility] High Sensitivity Troponin (TNIH) and attachments. Platelets bldOrdered By: Noel Banegas on 02-12-2023 Platelets (Bld) [#/Vol] 180 10*3/uL 150-450 [facility] Protein Test strip Ql (U)Ord ered By: Abhay Lopez on 02-12-2023 Protein Ql (U) Negative Negative [facility] Serum or plasma calcium zaynab urement (mass/volume)Ordered By: Noel Banegas on 02-12-2023 Calcium [Mass/Vol] 9.2 mg/dL 8.5-10.1 [facility] Serum or plasma cholesterol in HDL measurement (mass/volume)Ordered By: Abhay Lopez on 02-12-2023 Cholesterol in HDL [Mass/Vol] 37 mg/dL >40 [facility] Comment on above: The drugs N-Acetylcy steine and Metamizole may falsely depress this assay. Reference Range HDL <40 mg/dL Low HDL Cholesterol HDL >or= 60 mg/dL High HDL Cholesterol Serum or plasma cholesterol in VLDL measurement (mass/volume)Ordered By: Abhay Lopez on 02-12-2023 Cholesterol in VLDL [Mass/Vol] 47 mg/dL 5-40 [facility] Serum or plasma creatinine m easurement (mass/volume)Ordered By: Noel Banegas on 02-12-2023 Creatinine [Mass/Vol] 1.44 mg/dL 0.70-1.30 [facility] Comment on above: The validity of the calculated GFR & GFRAA in patients over 70 years has not been determined. Clinical correlation is essential. Serum or plasma low density lipoprotein (LDL) cholesterol measurement (mass/volume)Ordered By: Abhay Lopez on 02-12-2023 Cholesterol in LDL [Mass/Vol] 48 mg/dL 0-130 [facility] Serum or plasma urea nitroge n measurement (mass/volume)Ordered By: Noel Banegas on 02-12-2023 Urea nitrogen [Mass/Vol] 24 mg/dL 7-18 [facility] Squamous epithelial cells de tection in urine sediment by light microscopyOrdered By: Abhay Lopez on 02-12-2023 Epithelial cells.squamous LM Ql (Urine sed) 0 SEEN /hpf 0-5 [facility] Thin prep Papanicolaou smear with manual screeningOrdered By: Noel Banegas on 02-12-2023 Thin prep Papanicolaou smear with manual screening 4 5-15 [facility] Urine blood detectionOrdered By: Abhay Lopez on 02-12-2023 RBC Ql (U) Negative Negative [facility] RBC Ql (U) 0 SEEN /hpf 0-5 [facility] Urine clarityOrdered By: Pauline Lopez on 02-12-2023 Clarity (U) Clear Clear [facility] Urine color determinationOrd ered By: Abhay Lopez on 02-12-2023 Color (U) Yellow Yellow [facility] Urine glucose detectionOrder ed By: Abhay Lopez on 02-12-2023 Glucose Ql (U) Normal mg/dl Normal [facility] Urine leukocyte esterase det ection by dipstickOrdered By: Abhay Lopez on 02-12-2023 Leukocyte esterase Test strip Ql (U) Negative Negative [facility] Urine pHOrdered By: Jeannette Lopez on 02-12-2023 pH (U) 6.0 [pH] 5.0 - 8.0 [facility] Urine sediment bacteria coun t by microscopy (number/high power field)Ordered By: Abhay Lopez on 02-12-2023 Bacteria LM.HPF (Urine sed) [#/Area] 0 /[HPF] None Seen [facility] Urine specific gravity measu rementOrdered By: Abhay Lopez on 02-12-2023 Specific gravity (U) [Rel density] 1.015 1.002-1.030 [facility] Urobilinogen Auto test strip Ql (U)Ordered By: Abhay Lopez on 02-12-2023 Urobilinogen Ql (U) Normal mg/dl Normal [facility] Whole blood hemoglobin A1c/t otal hemoglobin ratio (mass fraction)Ordered By: Abhay Lopez on 02-12-2023 HbA1c (Bld) [Mass fraction] 5.3 % 3.8-5.6 [facility] Comment on above: Normal < 5.7 % Predi abetic 5.7 - 6.4 % Diabetic >or= 6.5 % Please note range changes. Basophil percentageOrdered B y: Dr. Du on 09-19-2022 Cholesterol [Mass/Vol] 162 mg/dL <200 [facility] Comment on above: <200 mg/dL Desirable 200-240 mg/dL Borderline >240 mg/dL High Risk Triglyceride [Mass/Vol] 226 mg/dL <199 [facility] Comment on above: The drugs N-Acetylcy steine and Metamizole may falsely depress this assay.Serum Triglycerides Reference Interval Normal <150 mg/dL Borderline high 150 - 199 mg/dL High 200 - 499 mg/dL Very High > or = 500 mg/dL Serum or plasma cholesterol in HDL measurement (mass/volume)Ordered By: Dr. Du on 09-19-2022 Cholesterol in HDL [Mass/Vol] 43 mg/dL >40 [facility] Comment on above: The drugs N-Acetylcy steine and Metamizole may falsely depress this assay. Reference Range HDL <40 mg/dL Low HDL Cholesterol HDL >or= 60 mg/dL High HDL Cholesterol Serum or plasma cholesterol in VLDL measurement (mass/volume)Ordered By: Dr. Du on 09-19-2022 Cholesterol in VLDL [Mass/Vol] 45 mg/dL 5-40 [facility] Serum or plasma low density lipoprotein (LDL) cholesterol measurement (mass/volume)Ordered By: Dr. Du on 09-19-2022 Cholesterol in LDL [Mass/Vol] 74 mg/dL 0-130 [facility] Absolute lymphocyte counton 03-23-2022 Lymphocytes Auto (Unsp spec) [#/Vol] 1.50 10*3/uL 0.83-4.51 [facility] Work Phone: Basophil percentageon 2021 Basophils/100 WBC (Bld) 0.4 % 0-1 [facility] Work Phone: Bilirubin [Mass/Vol] 0.60 mg/dL 0.20-1.00 [facility] Work Phone: Comment on above: For patients on eltr ombopag therapy, use of Dimension [facility] TBIL is not recommended. Chloride [Moles/Vol] 110 mmol/L 98-107 [facility] Work Phone: Cholesterol [Mass/Vol] 145 mg/dL <200 [facility] Work Phone: Comment on above: <200 mg/dL Desirable 200-240 mg/dL Borderline >240 mg/dL High Risk Eosinophils/100 WBC (Bld) 3.3 % 0-5 [facility] Work Phone: Glucose [Mass/Vol] 90 mg/dL 74-106 [facility] Work Phone: Neutrophils (Bld) [#/Vol] 2.5 10*3/uL 2.0-7.7 [facility] Work Phone: Neutrophils/100 WBC (Bld) 55.2 % 47-70 [facility] Work Phone: Potassium [Moles/Vol] 4.1 mmol/L 3.5-5.1 [facility] Work Phone: Protein [Mass/Vol] 7.1 g/dL 6.4-8.2 [facility] Work Phone: Sodium [Moles/Vol] 142 mmol/L 136-145 [facility] Work Phone: Triglyceride [Mass/Vol] 267 mg/dL <199 [facility] Work Phone: Comment on above: The drugs N-Acetylcy steine and Metamizole may falsely depress this assay.Serum Triglycerides Reference Interval Normal <150 mg/dL Borderline high 150 - 199 mg/dL High 200 - 499 mg/dL Very High > or = 500 mg/dL WBC (Bld) [#/Vol] 4.5 10*3/uL 4.4-11.0 [facility] Work Phone: Blood erythrocytes count (nu mber/volume)on 03-23-2022 RBC (Bld) [#/Vol] 4.29 10*6/uL 4.6-6.2 [facility] Work Phone: Blood hemoglobin measurement (mass/volume)on 03-23-2022 Hemoglobin (Bld) [Mass/Vol] 13.8 g/dL 13.0-16.5 [facility] Work Phone: Blood lymphocytes/100 leukoc yteson 03-23-2022 Lymphocytes/100 WBC (Bld) 33.2 % 19-41 [facility] Work Phone: Blood monocytes/100 leukocyt eson 03-23-2022 Monocytes/100 WBC (Bld) 7.7 % 0-10 [facility] Work Phone: Blood platelet mean volumeon 03-23-2022 Platelet mean volume (Bld) [Entitic vol] 10.1 fL 6.2-12.0 [facility] Work Phone: [phone] Determination of erythrocyte mean corpuscular volume (MCV)on 03-23-2022 MCV (RBC) [Entitic vol] 94.2 fL 80-94 [facility] Work Phone: [phone] Hematocrit Auto (Bld) [Volum e fraction]on 03-23-2022 Hematocrit (Bld) [Volume fraction] 40.4 % 40-54 [facility] Work Phone: [phone] Laboratory - Chemistry and C hemistry - challengeon 03-23-2022 ALP [Catalytic activity/Vol] 69 U/L 45-117 [facility] Work Phone: [phone] ALT [Catalytic activity/Vol] 27 U/L 16-61 [facility] Work Phone: [phone] CO2 [Moles/Vol] 24.0 mmol/L 21.0-32.0 [facility] Work Phone: [phone] Globulin (S) [Mass/Vol] 3.4 g/dL 2.2-4.2 [facility] Work Phone: [phone] Urea nitrogen/Creatinine [Mass ratio] 16.9 mg/mg 10-20 [facility] Work Phone: [phone] Laboratory - Hematology and Cell countson 03-23-2022 Erythrocyte distribution width (RBC) [Entitic vol] 42.5 fL 35.1-43.9 [facility] Work Phone: [phone] Erythrocyte distribution width (RBC) [Ratio] 12.4 % 11.6-14.6 [facility] Work Phone: [phone] Immature granulocytes/100 WBC (Bld) 0.200 % 0.0-0.9 [facility] Work Phone: [phone] Comment on above: IG% - Immature Granu locytes (promyelocytes, myelocytes and metamyelocytes) > 1% indicates that a LEFT SHIFT is Present. MCH (RBC) [Entitic mass] 32.2 pg 27.0-32.0 [facility] Work Phone: [phone] Nucleated RBC/100 WBC (Bld) [Ratio] 0 % 0-5 [facility] Work Phone: MCHC Auto (RBC) [Mass/Vol]on 03-23-2022 MCHC (RBC) [Mass/Vol] 34.2 g/dL 32-36 [facility] Work Phone: No Panel Informationon 03-23 Estimated GFR (MDRD) Amer 66 mL/min >60 [facility] Work Phone: Comment on above: GFR Calc Estimated GFR (MDRD) Non-Af Amer 55 mL/min >60 [facility] Work Phone: Comment on above: Non- GFR Calc Prostate Specific Antigen Screen 3.80 ng/mL 0.00-4.00 [facility] Work Phone: Comment on above: This test was perfor med using the TPSA assay method for [employer] chemistry system. Values obtained with differentassay methods cannot be used interchangably.When changing PSA assays in the course of monitoring apatient, additional sequential testing should be carriedout to confirm baseline values. Platelets bldon 03-23-2022 Platelets (Bld) [#/Vol] 193 10*3/uL 150-450 [facility] Work Phone: [phone] Serum or plasma albumin zaynab urement (mass/volume)on 03-23-2022 Albumin [Mass/Vol] 3.7 g/dL 3.2-5.0 [facility] Work Phone: [phone] Serum or plasma albumin/glob ulin mass ratioon 03-23-2022 Albumin/Globulin [Mass ratio] 1.1 {ratio} 0.9-2.4 [facility] Work Phone: [phone] Serum or plasma calcium zaynab urement (mass/volume)on 03-23-2022 Calcium [Mass/Vol] 9.2 mg/dL 8.5-10.1 [facility] Work Phone: [phone] Serum or plasma cholesterol in HDL measurement (mass/volume)on 03-23-2022 Cholesterol in HDL [Mass/Vol] 35 mg/dL >40 [facility] Work Phone: [phone] Comment on above: The drugs N-Acetylcy steine and Metamizole may falsely depress this assay. Reference Range HDL <40 mg/dL Low HDL Cholesterol HDL >or= 60 mg/dL High HDL Cholesterol Serum or plasma cholesterol in VLDL measurement (mass/volume)on 03-23-2022 Cholesterol in VLDL [Mass/Vol] 53 mg/dL 5-40 [facility] Work Phone: [phone] Serum or plasma creatinine m easurement (mass/volume)on 03-23-2022 Creatinine [Mass/Vol] 1.36 mg/dL 0.70-1.30 [facility] Work Phone: [phone] Comment on above: The validity of the calculated GFR & GFRAA in patients over 70 years has not been determined. Clinical correlation is essential. Serum or plasma low density lipoprotein (LDL) cholesterol measurement (mass/volume)on 03-23-2022 Cholesterol in LDL [Mass/Vol] 57 mg/dL 0-130 [facility] Work Phone: [phone] Serum or plasma urea nitroge n measurement (mass/volume)on 03-23-2022 Urea nitrogen [Mass/Vol] 23 mg/dL 7-18 [facility] Work Phone: [phone] Thin prep Papanicolaou smear with manual screeningon 03-23-2022 Thin prep Papanicolaou smear with manual screening 17 U/L 15-37 [facility] Work Phone: [phone] Thin prep Papanicolaou smear with manual screening 8 5-15 [facility] Work Phone: Basophil percentageon 2021 Bilirubin [Mass/Vol] 0.80 mg/dL 0.20-1.00 [facility] Work Phone: [phone] Comment on above: For patients on eltr ombopag therapy, use of Dimension [place] TBIL is not recommended. Chloride [Moles/Vol] 108 mmol/L 98-107 [facility] Work Phone: [phone] Cholesterol [Mass/Vol] 126 mg/dL <200 [facility] Work Phone: [phone] Comment on above: <200 mg/dL Desirable 200-240 mg/dL Borderline >240 mg/dL High Risk Glucose [Mass/Vol] 91 mg/dL 74-106 [facility] Work Phone: [phone] Potassium [Moles/Vol] 4.0 mmol/L 3.5-5.1 [facility] Work Phone: [phone] Protein [Mass/Vol] 7.0 g/dL 6.4-8.2 [facility] Work Phone: [phone] Sodium [Moles/Vol] 140 mmol/L 136-145 [facility] Work Phone: [phone] Triglyceride [Mass/Vol] 186 mg/dL [facility] Work Phone: [phone] Comment on above: The drugs N-Acetylcy steine and Metamizole may falsely depress this assay.Serum Triglycerides Reference Interval Normal <150 mg/dL Borderline high 150 - 199 mg/dL High 200 - 499 mg/dL Very High > or = 500 mg/dL Laboratory - Chemistry and C hemistry - challengeon 09-16-2021 ALP [Catalytic activity/Vol] 77 U/L 45-117 [facility] Work Phone: ALT [Catalytic activity/Vol] 28 U/L 16-61 [facility] Work Phone: [phone] CO2 [Moles/Vol] 28.0 mmol/L 21.0-32.0 [facility] Work Phone: [phone] Globulin (S) [Mass/Vol] 3.2 g/dL 2.2-4.2 [facility] Work Phone: [phone] Urea nitrogen/Creatinine [Mass ratio] 14.3 mg/mg 10-20 [facility] Work Phone: [phone] Panel Informationon 09-16 Estimated GFR (MDRD) Amer 64 mL/min >60 [facility] Work Phone: [phone] Comment on above: GFR Calc Estimated GFR (MDRD) Non-Af Amer 53 mL/min >60 [facility] Work Phone: [phone] Comment on above: Non- GFR Calc Serum or plasma albumin zaynab urement (mass/volume)on 09-16-2021 Albumin [Mass/Vol] 3.8 g/dL 3.2-5.0 [facility] Work Phone: Serum or plasma albumin/glob ulin mass ratioon 09-16-2021 Albumin/Globulin [Mass ratio] 1.2 {ratio} 0.9-2.4 [facility] Work Phone: Serum or plasma calcium zaynab urement (mass/volume)on 09-16-2021 Calcium [Mass/Vol] 9.0 mg/dL 8.5-10.1 [facility] Work Phone: Serum or plasma cholesterol in HDL measurement (mass/volume)on 09-16-2021 Cholesterol in HDL [Mass/Vol] 39 mg/dL [facility] Work Phone: Comment on above: The drugs N-Acetylcy steine and Metamizole may falsely depress this assay. Reference Range HDL <40 mg/dL Low HDL Cholesterol HDL >or= 60 mg/dL High HDL Cholesterol Serum or plasma cholesterol in VLDL measurement (mass/volume)on 09-16-2021 Cholesterol in VLDL [Mass/Vol] 37 mg/dL 5-40 [facility] Work Phone: Serum or plasma creatinine m easurement (mass/volume)on 09-16-2021 Creatinine [Mass/Vol] 1.40 mg/dL 0.70-1.30 [facility] Work Phone: Comment on above: The validity of the calculated GFR & GFRAA in patients over 70 years has not been determined. Clinical correlation is essential. Serum or plasma low density lipoprotein (LDL) cholesterol measurement (mass/volume)on 09-16-2021 Cholesterol in LDL [Mass/Vol] 50 mg/dL 0-130 [facility] Work Phone: Serum or plasma urea nitroge n measurement (mass/volume)on 09-16-2021 Urea nitrogen [Mass/Vol] 20 mg/dL 7-18 [facility] Work Phone: Thin prep Papanicolaou smear with manual screeningon 09-16-2021 Thin prep Papanicolaou smear with manual screening 15 U/L 15-37 [facility] Work Phone: Thin prep Papanicolaou smear with manual screening 4 5-15 [facility] Work Phone: Vital Signs Date Time Vital Sign Value Performing Clinician Facility 11-13-2024 15:14-0400 Body height 180.[address] Rin Du MD Work Phone: [facility] 11-13-2024 15:10-0400 Body weight 88.[address] Rin Du MD Work Phone: [facility] 11-13-2024 15:10-0400 Diastolic blood pressure 74 mm[Hg] Dr. Rin Du MD Work Phone: [facility] 11-13-2024 15:10-0400 Heart rate 60 /min Dr. Rin Du MD Work Phone: [facility] 11-13-2024 15:10-0400 Respiratory rate 18 /min Dr. Rin Du MD Work Phone: [facility] 11-13-2024 15:10-0400 Systolic blood pressure 130 mm[Hg] Dr. Rin Du MD Work Phone: [facility] 07-10-2024 15:33-0500 Body height 177.8 cm Liset Dockery MD, PhD Work Phone: [facility] 07-10-2024 15:33-0500 Body mass index (BMI) [Ratio] 28.84 kg/m2 Liset Dockery MD, PhD Work Phone: [facility] 07-10-2024 15:33-0500 Body weight 91.17 kg Liset Dockery MD, PhD Work Phone: [facility] 07-10-2024 15:33-0500 Diastolic blood pressure 64 mm[Hg] Liset Dockery MD, PhD Work Phone: [facility] 07-10-2024 15:33-0500 Heart rate 82 /min Liset Dockery MD, PhD Work Phone: [facility] 07-10-2024 15:33-0500 SaO2% (BldA) [Mass fraction] 93 % Liset Dockery MD, PhD Work Phone: [facility] 07-10-2024 15:33-0500 Systolic blood pressure 150 mm[Hg] Liset Dockery MD, PhD Work Phone: [facility] 03-10-2024 15:03-0400 Body height 177.8 cm Liset Mendoza APRN.[employer] Work Phone: [facility] 03-10-2024 15:03-0400 Body mass index (BMI) [Ratio] 30.53 kg/m2 Liset Mendoza APRN.[employer] Work Phone: [facility] 03-10-2024 15:03-0400 Body weight 96.5 kg Liset Mendoza APRN.[employer] Work Phone: [facility] 03-10-2024 15:03-0400 Diastolic blood pressure 64 mm[Hg] Liset Mendoza APRN.[employer] Work Phone: [facility] 03-10-2024 15:03-0400 Heart rate 73 /min Liset Mendoza APRN.[employer] Work Phone: [facility] 03-10-2024 15:03-0400 Respiratory rate 12 /min Liset Mendoza APRN.[employer] Work Phone: [facility] 03-10-2024 15:03-0400 SaO2% (BldA) [Mass fraction] 96 % Liset Mendoza APRN.[employer] Work Phone: [facility] Comment on above: room air 03-10-2024 15:03-0400 Systolic blood pressure 122 mm[Hg] Liset Mendoza APRN.[employer] Work Phone: [facility] 09-20-2023 15:08-0400 Body height 177.[address] Rin Du Work Phone: [facility] 09-20-2023 15:08-0400 Body mass index (BMI) [Ratio] 30.1 kg/m2 Dr. Rin Du Work Phone: [facility] 09-20-2023 15:08-0400 Body temperature 96.6 [degF] Dr. Rin Du Work Phone: [facility] 09-20-2023 15:08-0400 Body weight 95.[address] Rin Du Work Phone: [facility] 09-20-2023 15:08-0400 Diastolic blood pressure 76 mm[Hg] Dr. Rin Du Work Phone: [facility] 09-20-2023 15:08-0400 Heart rate 73 /min Dr. Rin Du Work Phone: [facility] 09-20-2023 15:08-0400 Respiratory rate 17 /min Dr. Rin Du Work Phone: [facility] 09-20-2023 15:08-0400 SaO2% (BldA) [Mass fraction] 98 % Dr. Rin Du Work Phone: [facility] 09-20-2023 15:08-0400 Systolic blood pressure 142 mm[Hg] Dr. Rin uD Work Phone: [facility] 07-19-2023 13:37-0500 Body height 177.[address] Rin Du Work Phone: [facility] 07-19-2023 13:37-0500 Body mass index (BMI) [Ratio] 30.2 kg/m2 Dr. Rin Du Work Phone: [facility] 07-19-2023 13:37-0500 Body weight 95.[address] Rin Du Work Phone: [facility] 02-13-2023 07:54-0400 SaO2% (BldA) [Mass fraction] 96 % Dr. Rni Du Work Phone: [facility] 02-13-2023 03:30-0400 Body temperature 96.9 [degF] Dr. Rin Du Work Phone: [facility] 02-13-2023 03:30-0400 Diastolic blood pressure 73 mm[Hg] Dr. Rin Du Work Phone: [facility] 02-13-2023 03:30-0400 Heart rate 56 /min Dr. Rin Du Work Phone: [facility] 02-13-2023 03:30-0400 Respiratory rate 16 /min Dr. Rin Du Work Phone: [facility] 02-13-2023 03:30-0400 Systolic blood pressure 125 mm[Hg] Dr. Rin Du Work Phone: [facility] 02-13-2023 01:49-0400 Body mass index (BMI) [Ratio] 28.8 kg/m2 Dr. Rin Du Work Phone: [facility] 02-12-2023 13:22-0400 Body height 177.[address] Rin Du Work Phone: [facility] 02-12-2023 13:22-0400 Body weight 91.[address] Rin Du Work Phone: [facility] 09-21-2022 14:45-0400 Body height 177.[address] Rin Du Work Phone: [facility] 09-21-2022 14:45-0400 Body mass index (BMI) [Ratio] 29.7 kg/m2 Dr. Rin Du Work Phone: [facility] 09-21-2022 14:45-0400 Body temperature 98 [degF] Dr. Rin Du Work Phone: [facility] 09-21-2022 14:45-0400 Body weight 93.[address] Rin Du Work Phone: [facility] 09-21-2022 14:45-0400 Diastolic blood pressure 68 mm[Hg] Dr. Rin Du Work Phone: [facility] 09-21-2022 14:45-0400 Heart rate 65 /min Dr. Rin Du Work Phone: [facility] 09-21-2022 14:45-0400 Respiratory rate 16 /min Dr. Rin Du Work Phone: [facility] 09-21-2022 14:45-0400 SaO2% (BldA) [Mass fraction] 96 % Dr. Rin Du Work Phone: [facility] 09-21-2022 14:45-0400 Systolic blood pressure 130 mm[Hg] Dr. Rin Du Work Phone: [facility] 08-10-2022 13:05-0500 Body height 177.[address] Rin Du Work Phone: [facility] 08-10-2022 13:04-0500 Body mass index (BMI) [Ratio] 29.4 kg/m2 Dr. Rin Du Work Phone: [facility] 08-10-2022 13:04-0500 Body weight 92.[address] Rin Du Work Phone: [facility] 08-10-2022 13:04-0500 Diastolic blood pressure 71 mm[Hg] Dr. Rin Du Work Phone: [facility] 08-10-2022 13:04-0500 Heart rate 64 /min Dr. Rin Du Work Phone: [facility] 08-10-2022 13:04-0500 Respiratory rate 16 /min Dr. Rin Du Work Phone: [facility] 08-10-2022 13:04-0500 SaO2% (BldA) [Mass fraction] 98 % Dr. Rin Du Work Phone: [facility] 08-10-2022 13:04-0500 Systolic blood pressure 130 mm[Hg] Dr. Rin Du Work Phone: [facility] 09-19-2021 13:11-0400 Body height 177.[address] Rin Du Work Phone: [facility] Work Phone: 09-19-2021 13:11-0400 Body mass index (BMI) [Ratio] 28.7 kg/m2 Dr. Rin Du Work Phone: [facility] Work Phone: 09-19-2021 13:11-0400 Body temperature 97.5 [degF] Dr. Rin Du Work Phone: [facility] Work Phone: 09-19-2021 13:11-0400 Body weight 90.[address] Rin Du Work Phone: [facility] Work Phone: 09-19-2021 13:11-0400 Diastolic blood pressure 70 mm[Hg] Dr. Rin Du Work Phone: [facility] Work Phone: 09-19-2021 13:11-0400 Heart rate 67 /min Dr. Rin Du Work Phone: [facility] Work Phone: 09-19-2021 13:11-0400 Respiratory rate 12 /min Dr. Rin Du Work Phone: [facility] Work Phone: 09-19-2021 13:11-0400 SaO2% (BldA) [Mass fraction] 100 % Dr. Rin Du Work Phone: [facility] Work Phone: 09-19-2021 13:11-0400 Systolic blood pressure 118 mm[Hg] Dr. Rin Du Work Phone: [facility] Work Phone: 08-09-2021 08:01-0500 Body weight 90.[address] Rin Du Work Phone: [facility] Work Phone: 08-09-2021 08:01-0500 Diastolic blood pressure 71 mm[Hg] Dr. Rin Du Work Phone: [facility] Work Phone: 08-09-2021 08:01-0500 Heart rate 72 /min Dr. Rin Du Work Phone: [facility] Work Phone: 08-09-2021 08:01-0500 Respiratory rate 16 /min Dr. Rin Du Work Phone: [facility] Work Phone: 08-09-2021 08:01-0500 SaO2% (BldA) [Mass fraction] 97 % Dr. Rin Du Work Phone: [facility] Work Phone: 08-09-2021 08:01-0500 Systolic blood pressure 133 mm[Hg] Dr. Rin Du Work Phone: [facility] Work Phone: 06-09-2020 09:54-0500 Body mass index (BMI) [Ratio] 31.8 kg/m2 Dr. Rin Du Work Phone: [facility] Work Phone: Encounters Encounter Date Encounter Type Care Provider Facility Start: 11-13-2024 End: 11-13-[facility] Start: 11-13-2024 End: 11-13-2024 Patient encounter procedure Jared Serafin Olivier FAMILY CONSUMER SCIENTIST-C -[facility] Work Phone: Start: 07-10-2024 End: 07-10-2024 ambulatory LISET DOCKERY Facility:[facility] Start: 07-10-2024 End: 07-10-2024 Patient encounter procedure Liset Dockery MD, PhD Work Phone: [facility] Comment on above: Chronic pain of left knee (Primary Dx) Start: 07-04-2024 End: 07-04-2024 [facility] Start: 07-02-2024 End: 07-02-2024 ambulatory [facility] Facility[facility] Start: 06-28-2024 End: 06-28-2024 ambulatory [facility] Facility:[facility] Start: 06-26-2024 End: 06-26-2024 Telephone encounter Liset Dockery MD, PhD Work Phone: Neurology Comment on above: Appointment Reschedu led Start: 05-14-2024 End: 05-14-2024 E-mail encounter from caregiver Liset Mendoza APRN.[employer] Work Phone: [facility] Start: 05-14-2024 End: 05-14-2024 Patient encounter procedure Liset Mendoza APRN.[employer] Work Phone: [facility] Comment on above: appointment with Dr Dockery Start: 05-02-2024 End: 05-02-2024 ambulatory Liset Mendoza APRN.[employer] Work Phone: [facility] Comment on above: Leg heaviness (Prima ry Dx); Neuralgia of left peroneal nerve; Lumbar pars defect Start: 05-02-2024 End: 05-02-2024 Telemedicine consultation with patient Liset Mendoza VICE PRESIDENT OF NURSING.[employer] Work Phone: [facility] Start: 04-09-2024 End: 04-09-2024 ambulatory MICHELLE COTA Facility:[facility] Start: 03-31-2024 End: 03-31-2024 ambulatory Michelle Cota DO Work Phone: Pain Management Comment on above: Arrival Time and Pre -Procedure Instructions Start: 03-31-2024 End: 03-31-2024 E-mail encounter from caregiver Michelle Cota DO Work Phone: Pain Management Start: 03-26-2024 End: 03-26-2024 ambulatory Michelle Cota DO Work Phone: Pain Management Comment on above: Pre-Procedure Instru ctions Start: 03-26-2024 End: 03-26-2024 E-mail encounter from caregiver Michelle Cota DO Work Phone: Pain Management Start: 03-20-2024 End: 03-20-2024 [facility] Start: 03-18-2024 End: 03-18-2024 ambulatory [facility] Facility:[facility] Start: 03-14-2024 End: 03-14-2024 Orders Only Michelle Cota DO Work Phone: [facility] Comment on above: Lesion of left later al popliteal nerve (Primary Dx) Start: 03-10-2024 End: 03-10-2024 ambulatory LISET MENDOZA Facility:[facility] Start: 03-10-2024 End: 03-10-2024 Patient encounter procedure Liset Mendoza VICE PRESIDENT OF NURSING.[employer] Work Phone: [facility] Comment on above: Neuralgia of left pe roneal nerve (Primary Dx) Start: 03-06-2024 End: 03-06-2024 Patient encounter procedure Gatito Olivier MD Work Phone: Neurology Comment on above: Neuropathy of left p eroneal nerve (Primary Dx) Start: 03-06-2024 End: 03-06-2024 ambulatory GATITO OLIVIER Facility:[facility] Start: 01-23-2024 End: 01-23-2024 ambulatory Feroz Fairbanks Facility:[facility] Start: 12-06-2023 Chart abstracting None (Historical) Neurology Start: 12-06-2023 End: 12-06-2023 ambulatory Rin Du Facility:[facility] Start: 11-29-2023 End: 11-29-2023 ambulatory Rin Du Facility:[facility] Start: 11-28-2023 ambulatory [facility] Fac[facility] Start: 11-28-2023 End: 11-28-2023 [facility] Start: 09-20-2023 End: 09-20-[address] Rin Du Work Phone: [facility] Work Phone: Start: 09-20-2023 End: 09-20-[address] Rin Du Work Phone: [facility] Work Phone: Start: 09-12-2023 End: 09-12-[address] Rin Du Work Phone: [facility] Work Phone: Start: 09-12-2023 End: 09-12-[address] Rin Du Work Phone: [facility] Start: 07-19-2023 End: 07-19-[address] Rin Du Work Phone: [facility] Work Phone: Start: 02-13-2023 Non-patient / Non-visit Dr. Wes Du Work Phone: [facility] Start: 02-12-2023 End: 02-13-2023 Evaluation and management of inpatient Dr. Rin Du Work Phone: [facility]Progressive Care [facility] Work Phone: Start: 02-12-2023 End: 02-13-[address] Rin Du Work Phone: [facility] Work Phone: Start: 02-12-2023 Non-patient / Non-visit Dr. Wes Du Work Phone: [facility] Work Phone: Start: 01-22-2023 End: 01-22-[address] Rin Du Work Phone: [facility] Work Phone: Start: 09-21-2022 End: 09-21-[address] Rin Du Work Phone: [facility] Start: 09-19-2022 End: 09-19-[address] Rin Du Work Phone: [facility] Work Phone: Start: 09-19-2022 End: 09-19-[address] Rin Du Work Phone: [facility] [place] Start: 09-12-2022 Non-patient / Non-visit Dr. Wes Du Work Phone: [facility] Start: 09-12-2022 End: 09-12-[address] Rin Du Work Phone: [facility] Work Phone: Start: 09-12-2022 End: 09-12-[address] Rin Du Work Phone: [facility] Start: 08-10-2022 End: 08-10-[address] Rin Du Work Phone: [facility] Start: 03-23-2022 End: 03-23-[address] Rin Du Work Phone: [facility] Work Phone: Start: 03-23-2022 End: 03-23-[address] Rin Du Work Phone: [facility] Start: 02-22-2022 End: 02-22-[address] Rin Du Work Phone: [facility] Start: 09-29-2021 Non-patient / Non-visit Dr. Wes Du Work Phone: [facility] Start: 09-29-2021 End: 09-29-[address] Rin Du Work Phone: [facility] Start: 09-19-2021 End: 09-19-[address] Rin Du Work Phone: [facility] Start: 09-16-2021 End: 09-16-[address] [facility] Start: 08-09-2021 End: 08-09-[address] Rin Du Work Phone: [facility] Start: 01-28-[address] Yoko Du Work Phone: [facility] Start: 08-19-2020 End: 08-19-2020 Patient encounter procedure WADE [facility] Start: 07-28-2020 End: 07-28-2020 [facility] Start: 01-06-2014 Patient encounter status None (Historical) [facility] Procedures Date Procedure Procedure Detail Performing Clinician Start: 03-06-2024 Us compl joint r-t w/image documentation Gatito Olivier MD Work Phone: Start: 02-13-2023 MRI of brain without contrast Dr. Rin Du Work Phone: Start: 02-12-2023 CT angiography of head and neck Dr. Rin Du Work Phone: Start: 02-12-2023 CT of head without contrast Dr. Rin Du Work Phone: Start: 02-12-2023 Plain chest X-ray Dr. Rin Du Work Phone: Start: 01-22-2023 Radiologic examination of knee Dr. Rin Du Work Phone: Start: 02-22-2022 Radiologic examination of knee Dr. Rin Du Work Phone: Start: 01-10-2014 Lipid 1996 panel - Serum or Plasma None (Historical) Start: 04-11-2013 Colonoscopy None (Historical) History of operative procedure on knee History of arthroplasty of left knee Dr. Rin Du Work Phone: Plan of Treatment Date Care Activity Detail Author Start: 09-03-2024 End: 09-03-2024 Follow-up encounter 09/03/2024 8:00 AM EDT [facility] [address] [id number] Liset Dockery MD, PhD [address] [place] [address] Left peroneal nerve palsy - [facility] Comment on above: Left peroneal nerve palsy - follow up [facility] Start: 08-21-2024 Covid-19 Vaccine ( season) Covid-19 Vaccine () [facility] Start: 07-10-2024 End: 07-10-2024 Patient encounter procedure 07/10/2024 4:30 PM EST Office Visit [facility] [address] [place] [address] Liset Dockery MD, PhD [address] [place] [address] CONSULT [facility] Comment on above: CONSULT Start: 06-26-2024 End: 06-26-2024 Patient encounter procedure 06/26/2024 1:00 PM EST Office Visit [facility] [address] [place], [place] [phone] Liset Dockery MD, PhD [address] [place] [address] CONSULT [facility] Comment on above: CONSULT Start: 06-11-2024 Advance Directive Discussion Advance Directive Discussion [facility] Start: 05-02-2024 End: 05-02-2024 [facility] 05/02/2024 2:20 PM EST [facility] [address] [place], [place] [phone] Liset Mendoza, SOREN.ENTRY LEVEL FINANCE [address] [place] [address] Ordering Provider Via Virtual Visit: 2-4 weeks [facility] Comment on above: Ordering Provider Vi a Virtual Visit: 2-4 weeks Start: 04-09-2024 End: 04-09-2024 Admission to same day surgery center 04/09/2024 8:30 AM EDT - 04/09/2024 9:00 AM EDT Surgery Pain Management [address] [place] [address] Michelle Cota DO [address] [place] [address] INJECTION(S) ANESTHETIC AGENT(S) AND/OR STEROID OTHER PERIPHERAL NERVE OR BRANCH [facility] Comment on above: INJECTION(S) ANESTHE TIC AGENT(S) AND/OR STEROID OTHER PERIPHERAL NERVE OR BRANCH Start: 04-09-2024 End: 04-09-2024 Injection aa&/strd other peripheral nerve/branch INJECTION(S) ANESTHETIC AGENT(S) AND/OR STEROID OTHER PERIPHERAL NERVE OR BRANCH Lesion of left lateral popliteal nerve 04/09/2024 8:30 AM EDT [facility] Start: 04-09-2024 Subsequent hospital visit by physician Pain Management Comment on above: Lesion of left later al popliteal nerve [G57.32] Start: 04-09-2024 End: 04-09-2024 Us guidance needle placement img s&i ULTRASONIC PLACEMENT NEEDLE Lesion of left lateral popliteal nerve 04/09/2024 8:30 AM EDT [facility] Start: 04-07-2024 End: 04-07-2024 ambulatory 04/07/2024 10:00 AM EDT [facility] [address] [place] [address] Liset Mendoza, VICE PRESIDENT OF NURSING.ENTRY LEVEL FINANCE [address] [id number] f/u with provider [facility] Comment on above: f/u with provider Start: 03-27-2024 End: 03-27-2024 Patient encounter procedure 03/27/2024 3:40 PM EDT Office Visit [facility] [address] [place] [address] Liset Mendoza, VICE PRESIDENT OF NURSING.ENTRY LEVEL FINANCE [address] [place] [address] Left peroneal nerve palsy [facility] Comment on above: Left peroneal nerve palsy Start: 02-10-2024 Influenza vaccination Influenza Vacc ine (#1) [facility] Start: 09-20-2023 Patient referral [facility] Work Phone: Start: 06-11-2023 Advance Directive Discussion Advance Directive Discussion [facility] Start: 06-11-2023 Behavioral Health Screening Behavioral Health Screening [facility] Start: 02-13-2023 Patient discharge [facility] Start: 02-12-2023 Following clinical pathway protocol [facility] Start: 02-12-2023 Ambulation without limitation [facility] Start: 02-12-2023 Assessment of risk o f venous thromboembolism [facility] Start: 02-12-2023 Insertion of cathete r into peripheral vein [facility] Start: 02-12-2023 Providing care accor ding to standard [facility] Start: 02-12-2023 Referral to occupati onal therapist [facility] Start: 02-12-2023 Referral to service [facility] Start: 02-12-2023 [facility] Start: 02-12-2023 Admission procedure [facility] Start: 02-12-2023 Oxygen therapy [facility] Start: 02-09-2023 Covid-19 Vaccine () Covid-19 Vaccine () [facility] Start: 01-10-2019 Lipid panel Lipid Screening [facility] Start: 04-11-2018 Screening for malign ant neoplasm of colon [facility] Start: 01-10-2017 Diabetes Screening Diabetes Screenin g [facility] Start: 2015 Pneumococcal Vaccine : 65+ (1 of 1 - PCV) Pneumococcal Vaccine: 65+ (1 of 1 - PCV) [facility] Start: 01-06-2015 Screening for malign ant neoplasm of colon Fecal Occult Blood [facility] Start: 2010 RSV Vaccine (1 - 1-d ose 60+ series) RSV Vaccine (1 - 1-dose 60+ series) [facility] Start: 02-29-2000 Pneumococcal Vaccine : 50+ (1 of 1 - PCV) Pneumococcal Vaccine: 50+ (1 of 1 - PCV) [facility] Start: 02-29-2000 Shingrix Vaccine (1 of 2) Betancourt grix Vaccine (1 of 2) [facility] Start: 1995 Screening for malign ant neoplasm of colon [facility] Start: 1969 Urine microalbumin profile DTaP,Tdap,Td Vaccine (1 - Tdap) [facility] Start: 02-29-1968 Anxiety Screening Anxiety Screening [facility] Start: 02-29-1968 Depression Screening Depression Scre ening [facility] Start: 02-29-1968 Hepatitis C screening Hepatitis C Sc reening [facility] Start: 1950 Abdominal aortic ane urysm screening Abdominal Aortic Aneurysm Screening [facility] CBC W Auto Different ial panel - Blood [facility] CBC W Auto Different ial panel - Blood [facility] Cholesterol [Mass/vo lume] in Serum or Plasma [facility] Cholesterol in HDL [Mass/volume] in Serum or Plasma [facility] Cholesterol in LDL [Mass/volume] in Serum or Plasma [facility] Injection aa&/strd o ther peripheral nerve/branch INJECTION(S) ANESTHETIC AGENT(S) AND/OR STEROID OTHER PERIPHERAL NERVE OR BRANCH Lesion of left lateral popliteal nerve [facility] Lipid 1995 panel - S cathi or Plasma [facility] Lipid 1995 panel - S cathi or Plasma [facility] NEUROMUSCULAR ULTRASOUND/NEUROLOGY NEUROMUSCULAR ULTRASOUND/NEUROLOGY Procedures Routine Left peroneal nerve palsy Ordered: 12/19/2023 [facility] Work Phone: Comment on above: Ordered: 12/19/2023 Patient referral [facility] Work Phone: Prostate specific an tigen measurement [facility] Prostate specific an tigen measurement [facility] SPINE INTERVENTION PROCEDURE SPINE INTERVENTION PROCEDURE Procedures Routine Neuralgia of left peroneal nerve Ordered: 03/10/2024 [facility] Work Phone: Comment on above: Ordered: 03/10/2024 Triglycerides measurement [facility] Us guidance needle placement img s&i ULTRASONIC PLACEMENT NEEDLE Lesion of left lateral popliteal nerve [facility] VLDL cholesterol measurement [facility] [place] Immunizations Immunization Date Immunization Notes Care Provider [facility] 02-19-2024 Covid (Spikevax) Dr. Yoko Du MD Work Phone: [facility] 02-19-2024 Influenza High-Dose Quadrivalent Dr. Rin Du MD Work Phone: [facility] 03-22-2023 influenza, injectabl e, quadrivalent, preservative free Dr. Rin Du Work Phone: [facility] 03-21-2022 Covid (Pfizer) Dr. Rin Du Work Phone: [facility] 03-07-2022 influenza, injectabl e, quadrivalent, preservative free Dr. Rin Du Work Phone: [facility] 03-07-2022 influenza, seasonal, injectable Dr. Rin Du Work Phone: [facility] 02-25-2022 Covid (Pfizer) Dr. Rin Du Work Phone: [facility] 09-15-2021 Covid (Pfizer) Dr. Rin Du Work Phone: [facility] 08-19-2020 Covid (Pfizer) Dr. Rin Du Work Phone: [facility] 08-17-2020 Covid (Pfizer) Dr. Rin Du Work Phone: [facility] Work Phone: 07-28-2020 Covid (Pfizer) Dr. Rin Du Work Phone: [facility] 07-20-2020 Covid (Pfizer) Dr. Rin Du Work Phone: [facility] Work Phone: Payers Date Payer Category Payer Self-pay [id number] 2023 Private Health Insurance [id number] 2023 Private Health Insurance [id number] 2015 Medicare [id number] [id number] 2015 Medicare [id number] [facility] [id number] Unknown [id number] Unknown [facility] [place] [id number] Unknown [id number] Unknown [id number] Unknown [id number] Unknown [id number] Unknown [id number] Unknown [id number] Unknown [id number] Unknown [id number] Unknown [id number] Unknown [id number] Unknown [id number] Unknown [id number] Unknown [id number] Social History Date Type Detail Facility Start: 09-19-2021 End: 09-20-2023 Tobacco smoking status DCIS Unknown if ever smoked [facility] Start: 1950 Sex Assigned At Male [facility] Start: 02-13-2023 Cigarettes [facility] Start: 12-31-2013 End: 01-21-2024 Tobacco smoking status NHIS Ex-smoker [facility] History of tobacco use Current smoker [facility] Start: 12-31-2013 Tobacco use and exposure Smokeless tobacco non-user [facility] Start: 01-06-2014 End: 07-30-2024 Alcohol intake Not Asked [facility] Start: 06-09-2017 End: 03-06-2024 History of Social function [facility] Start: 06-09-2017 End: 03-06-2024 Tobacco use panel [facility] Start: 1950 Sex Assigned At Not on file C [facility] Adult Depression Screening Assessment 0 [facility] Medical Equipment Procedure Code Equipment Code Equipment Origin al Text Equipment Identifier Dates ([id number]) Metal-backed pat radhika prosthesis [id number] FDA Start: 02-22-2021 ([id number]) Coated knee femu r prosthesis ()[id number] FDA Start: 02-22-2021 ([id number]) Coated knee tibi a prosthesis ()[id number] FDA Start: 02-22-2021 ([id number]) Tibial insert [id number] FDA Start: 02-22-2021 Goals Date Patient Goal Desired Activity /State Functional Status Date Assessment Result Facility 02-13-2023 Functional status Ambulates [facility] Work Phone: 01-06-2014 Are you deaf, or do you have serious difficulty hearing No 01/06/2014 2:56 PM EDT Mesha Lakhani LPN No [facility] Work Phone: 01-06-2014 Are you blind, or do you have serious difficulty seeing, even when wearing glasses No 01/06/2014 2:56 PM EDT Mesha Lakhani LPN No [facility] 01-06-2014 Do you have serious difficulty walking or climbing stairs No 01/06/2014 2:56 PM EDT Mesha Lakhani LPN No [facility] 01-06-2014 Do you have difficul ty dressing or bathing No 01/06/2014 2:56 PM EDT Mesha Lakhani LPN No [facility] 01-06-2014 Because of a physica l, mental, or emotional condition, do you have difficulty doing errands alone such as visiting a physician's office or shopping No 01/06/2014 2:56 PM EDT Mesha Lakhani LPN No [facility] Mental Status Date Assessment Result Facility 02-13-2023 Cognitive function Voice/Name [facility] Work Phone: 01-06-2014 Because of a physica l, mental, or emotional condition, do you have serious difficulty concentrating, remembering, or making decisions No 01/06/2014 2:56 PM EDT Mesha Lakhani LPN No [facility] Clinical Notes 02-12-2023 to 07-10-2024 Liset Dockery MD, PhD - 07/10/2024 4:30 PM ESTTelephone Encounter - [facility], [facility] - 06/26/2024 10:07 AM ESTTelephone Encounter - [facility], [facility] - 06/26/2024 10:07 AM EST Note Date & Type Note Facility 07-10-2024 History of Present illness Narrative Images from the original note were not included. [facility] Follow up/Established patient visit Individuals who were included in, or assisted with the encounter were: Roney Larsen Liset Dockery MD, PhD Ernie Juarez Chief Complaint/Issues: Roney Larsen is a 74 year old male seen in the [facility] for: Left peroneal neuropathy Initial HPI: Patient states that He had left knee replacement 3 years ago. After surgery he stated that the knee didn't feel right. He feels a constant numb and heaviness from his knee down. Can't walk for too long leg gets heavier can't ride his bike, pedaling agitates his symptoms. He denies difficulty lifting his left foot but states he tends to shuttle with small steps when he walks and catches himself before he falls. Patient also endorses intermittent numbness that radiates down the lateral side of knee and calf. Also has low back pain. Other PMH includes severe vertigo, Afib ablation in Feb; Patient did have an L4-5 and S1 lateral laminectomy in 1993. HPI/Interval History: The patient presents with pain in the left knee. The patient had a knee replacement in 2019. Two weeks after he had pain on the outside of his knee. It never got better, so he went to neurology. He got a steroid injection to the common peroneal nerve, which improved his distal leg symptoms but continued to have knee pain. It began to become heavier and he wasn't able to walk as far. This has worsened since his fall 2 days ago. He has more pain now due to this, and it feels like its pulsing. His pain also goes about his left knee. He gets pain when he puts his knee in weird positions. The heaviness feels constant. General Examination: BP 150/64 (BP Site: Right Arm, BP Position: Sitting, BP Cuff Size: Extra Large Adult) Pulse 82 Ht 177.8 cm (5' 10) Wt 91.2 kg (201 lb) SpO2 93% BMI 28.84 kg/m General: Awake, alert, interactive, no acute distress, good nutritional status, normal development, well-kept Neurological Exam Mental Status Alert, fully oriented, attentive, with normal cognition, memory, speech and affect. Cranial Nerves Extraocular movements normal. No nystagmus, no ptosis, and pupils equal. Face symmetrical. Tongue normal. Motor Examination and Coordination Motor examination with normal bulk, strength and tone. Sensation Normal sensation in the left common peroneal nerve distribution No Tinel's at the fibular neck Gait Casual gait normal. Lab and Test Review: MRI L-spine 12/02 EMG/NCS 12/02 NEUROMUSCULAR ULTRASOUND/NEUROLOGY: 03/06/24 Ultrasonographic evaluation in the lateral decubitus position with the knee fully extended was performed of the left common peroneal nerve from the fibular head to popliteal fossa and left superficial peroneal nerve from mid-calf to ankle. The left common peroneal nerve and superficial peroneal nerves had normal cross-sectional area (CSA) throughout their visualized course, without evidence of entrapment or other focal pathology. Ultrasonographic evaluation of the left sciatic nerve from the popliteal fossa to gluteal cleft and of the left tibial nerve within the popliteal fossa. The left sciatic and tibial nerves had normal CSA throughout their visualized course, without evidence of entrapment or other focal pathology. No other obvious abnormality extrinsic to the visualized nerves is present. Assessment & Plan 07/30/2024 - Spine, Liset Dockery MD, PhD ASSESSMENT The patient is a 74 year old male with left leg/knee pain PLAN His symptoms do not clearly fit a common peroneal neuropathy and unfortunately I only have a report but not the EMG/NCS study to determine the severity of the findings. I've recommended that he attempt an L5 epidural steroid injection to see if this improves his symptoms. He may follow up virtually after to discuss. I have also recommended he attempt Mobic for his knee stiffness to see if this improves. Encounter Diagnosis ICD-10-CM 1. Chronic pain of left knee M25.562 G89.29 Return for Virtual visit after epidural steroid injection. Data Review Objective Current Outpatient Medications Medication Sig calcium/magnesium/zinc (NURHZJA-UPIEZNHADS-CZDO) 333-133-5 mg tab Take by mouth. WISCHQWN-XGK-PY-LYCOPEN-LUTEIN ORAL Take by mouth. Fenofibrate (LOFIBRA) 54 mg tablet loratadine (CLARITIN) 10 mg tablet doxazosin 4 mg tablet Take 1 tablet by mouth daily at bedtime. meloxicam (MOBIC) 15 mg tablet Take 1 tablet by mouth once daily. simvastatin 80 mg tablet Take 1 tablet by mouth daily at bedtime. No current facility-administered medications for this visit. ACTIVE PROBLEM LIST Bph (Benign Prostatic Hyperplasia) Hyperlipidemia Basal Cell Carcinoma of Skin Squamous Cell Skin Cancer Cranial Nerve Vi Palsy Well Adult Exam Elevated Psa PAST MEDICAL HISTORY Diagnosis Date BPH (benign prostatic hyperplasia) Hypercholesteremia PAST SURGICAL HISTORY Procedure Laterality Date PAST SURGICAL HISTORY OF 1992 Laminectomy Lumbar PAST SURGICAL HISTORY OF No ACL in left knee TONSILLECTOMY HX Social History Tobacco Use Smoking status: Former Smokeless tobacco: Never FAMILY HISTORY Problem Relation Age of Onset Coronary Artery Disease Father 50's Hypertension Maternal Grandfather Stroke Maternal Grandfather By signing my name below, I, Amaya Jackson, attest that this documentation has been prepared under the direction and in the presence of Dr. Dockery Electronically signed, Ernie Juarez July 08, 2024 9:13 AM I spent a total of 30 minutes on the date of the service which included preparing to see the patient, [id number] patient care, completing clinical documentation, obtaining and/or reviewing separately obtained history, performing a medically appropriate examination, and counseling and educating the patient/family/caregiver. Liset Dockery MD, PhD Peripheral Nerve Neurosurgeon Quality Control Clerk, Neurosurgery [facility] [address] [place] [address] documented in this encounter [facility] 07-10-2024 Note HNO ID: [id number] Author: LISET DOCKERY MD, PhD Service: ? Author Type: Physician Type: Progress Notes Filed: 07/30/2024 07:55 Note Text: [facility] Follow up/Established patient visit Individuals who were included in, or assisted with the encounter were: Roney Larsen Liset Dockery MD, PhD Ernie Juarez Chief Complaint/Issues: Roney Larsen is a 74 year old male seen in the [facility] for: Left peroneal neuropathy Initial HPI: Patient states that He had left knee replacement 3 years ago. After surgery he stated that the knee didn't feel right. He feels a constant numb and heaviness from his knee down. Can't walk for too long leg gets heavier can't ride his bike, pedaling agitates his symptoms. He denies difficulty lifting his left foot but states he tends to shuttle with small steps when he walks and catches himself before he falls. Patient also endorses intermittent numbness that radiates down the lateral side of knee and calf. Also has low back pain. Other PMH includes severe vertigo, Afib ablation in Feb; Patient did have an L4-5 and S1 lateral laminectomy in 1993. HPI/Interval History: The patient presents with pain in the left knee. The patient had a knee replacement in 2019. Two weeks after he had pain on the outside of his knee. It never got better, so he went to neurology. He got a steroid injection to the common peroneal nerve, which improved his distal leg symptoms but continued to have knee pain. It began to become heavier and he wasn't able to walk as far. This has worsened since his fall 2 days ago. He has more pain now due to this, and it feels like its pulsing. His pain also goes about his left knee. He gets pain when he puts his knee in weird positions. The heaviness feels constant. General Examination: BP 150/64 (BP Site: Right Arm, BP Position: Sitting, BP Cuff Size: Extra Large Adult) Pulse 82 Ht 177.8 cm (5' 10) Wt 91.2 kg (201 lb) SpO2 93% BMI 28.84 kg/m? General: Awake, alert, interactive, no acute distress, good nutritional status, normal development, well-kept Neurological Exam Mental Status Alert, fully oriented, attentive, with normal cognition, memory, speech and affect. Cranial Nerves Extraocular movements normal. No nystagmus, no ptosis, and pupils equal. Face symmetrical. Tongue normal. Motor Examination and Coordination Motor examination with normal bulk, strength and tone. Sensation Normal sensation in the left common peroneal nerve distribution No Tinel's at the fibular neck Gait Casual gait normal. Lab and Test Review: MRI L-spine 12/02 EMG/NCS 12/02 NEUROMUSCULAR ULTRASOUND/NEUROLOGY: 03/06/24 Ultrasonographic evaluation in the lateral decubitus position with the knee fully extended was performed of the left common peroneal nerve from the fibular head to popliteal fossa and left superficial peroneal nerve from mid-calf to ankle. The left common peroneal nerve and superficial peroneal nerves had normal cross-sectional area (CSA) throughout their visualized course, without evidence of entrapment or other focal pathology. Ultrasonographic evaluation of the left sciatic nerve from the popliteal fossa to gluteal cleft and of the left tibial nerve within the popliteal fossa. The left sciatic and tibial nerves had normal CSA throughout their visualized course, without evidence of entrapment or other focal pathology. No other obvious abnormality extrinsic to the visualized nerves is present. Assessment AND Plan 07/30/2024 - Spine, Liset Dockery MD, PhD ASSESSMENT The patient is a 74 year old male with left leg/knee pain PLAN His symptoms do not clearly fit a common peroneal neuropathy and unfortunately I only have a report but not the EMG/NCS study to determine the severity of the findings. I've recommended that he attempt an L5 epidural steroid injection to see if this improves his symptoms. He may follow up virtually after to discuss. I have also recommended he attempt Mobic for his knee stiffness to see if this improves. Encounter Diagnosis ICD-10-CM 1. Chronic pain of left knee M25.562 G89.29 Return for Virtual visit after epidural steroid injection. Data Review Objective Current Outpatient Medications Medication Sig calcium/magnesium/zinc (XDAMGYF-PZURPIHDRZ-QVRP) 333-133-5 mg tab Take by mouth. WMBPUCPY-BLG-LQ-LYCOPEN-LUTEIN ORAL Take by mouth. Fenofibrate (LOFIBRA) 54 mg tablet loratadine (CLARITIN) 10 mg tablet doxazosin 4 mg tablet Take 1 tablet by mouth daily at bedtime. meloxicam (MOBIC) 15 mg tablet Take 1 tablet by mouth once daily. simvastatin 80 mg tablet Take 1 tablet by mouth daily at bedtime. No current facility-administered medications for this visit. ACTIVE PROBLEM LIST Bph (Benign Prostatic Hyperplasia) Hyperlipidemia (more content not included)... [facility] 06-26-2024 Telephone encounter Note Per Dr. Dockery, appt must be in person; offered 07/10/24 at 4:30 PM. Patient accepted. Sending message to schedulers to reschedule appt from today to 07/10/24 at 4:30 PM. [facility] 06-26-[address] Dockery, appt must be in person; offered 07/10/24 at 4:30 PM. Patient accepted. Sending message to schedulers to reschedule appt from today to 07/10/24 at 4:30 PM. Neuro SPINE CARE COORDINATION QUICK NOTE Noted. Reviewing with Dr. Driss Tyson RN BSN Nurse [employer]obile Engine [employer]er Pt called; has in-person appt with Dr. Dockery at 1:00 PM today. He wants to know if his appt can be switched to a virtual visit - [place] 50 [place] and the snow is very bad. Please advise if this can be accommodated or if he has to reschedule his appt. documented in this encounter [facility] 06-26-2024 Telephone encounter Note Neuro SPINE CARE COORDINATION QUICK NOTE Noted. Reviewing with Dr. Driss Tyson RN BSN Nurse Automobile Engine Assembler [facility] 06-26-2024 Telephone encounter Note Pt called; has in-person appt with Dr. Dockery at 1:00 PM today. He wants to know if his appt can be switched to a virtual visit - [place] lives 50 miles away and the snow is very bad. Please advise if this can be accommodated or if he has to reschedule his appt. [facility] 05-02-2024 History of Present illness Narrative SPINE SURGERY ESTABLISHED VISIT This is a virtual visit using [email or web address].nethart Zoom Video Visit. It required patient-provider interaction for the medical decision making as documented below. I have communicated my name and active licensure. The patient's identity and physical location were verified at the time of this visit. Either the patient or their legal loan representative has been informed of the risks and benefits of -- and alternatives to -- treatment through a remote evaluation and consents to proceed with the evaluation remotely. DATE OF SERVICE: 05/02/2024 DATE OF LAST VISIT: 03/10/2024 SUBJECTIVE: HPI:Roney Larsen is a 74 year old male presenting s/p left common peroneal injection just above the fibular head on 04/09/2024. Injection took affect could wiggle toes feels like he felt his gait changes and had more Heaviness and tightness in knee and thigh worse, feels symptoms did not improve heaviness feels worse then before. L5 pars fracture bilaterally on November 2023 MRI lumbar Lumbar lami L5 had left hip pain which resolved after surgery Denies any right leg symptoms MEDICATIONS: calcium/magnesium/zinc (PEZVJTW-NJNBOPMYWM-CLOT) 333-133-5 mg tab Take by mouth. VLZPXIHD-KIA-FX-LYCOPEN-LUTEIN ORAL Take by mouth. Fenofibrate (LOFIBRA) 54 mg tablet loratadine (CLARITIN) 10 mg tablet doxazosin 4 mg tablet Take 1 tablet by mouth daily at bedtime. simvastatin 80 mg tablet Take 1 tablet by mouth daily at bedtime. Patient Entered Questionnaires 03/10/2024 04/25/2024 Spine Questions Pain Location: Leg Leg Pain Duration: 1 to 5 years Pain over last 6 months: Every day or nearly every day in the past 6 months Symptoms from neck/cervical spine: No No Employment Status: Retired Involved in law suit/legal claim: No PROMIS Score Percentiles 03/10/2024 04/25/2024 Physical Health Physical Function Percentile 12 12 Sleep Percentile 95 76 Fatigue Percentile 14 14 Pain Interference Percentile 1 4 03/10/2024 04/25/2024 PROMIS SOCIAL ROLE SCORE Social Role Satisfaction Percentile 18* 31 03/10/2024 PROMIS Global Health Scale Physical Health Percentile 10 Mental Health Percentile 53 Percentiles provide an indication of how the patient's score ranks in relation to the general population. Higher percentile rankings indicate better function/quality of life. 50th percentile is the average of the general population and indicates half of respondents had a worse score. Descriptive Summary for PROMIS Physical Function T-score = 38 (Percentile 12) Much difficulty - Do 2 hours of physical labor. Some difficulty - Walk more than a mile (1.6 km). 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 Reviewed with patient that injection did not really improve his symptoms but rather exacerbated them would like to review with Dr Dockery and follow up with patient on next steps. Patient tired and frustrated with his ongoing symptoms. 1. No Orders Entered Today 2. Follow up: review results of injection with dr dockery and follow up with patient on recommendations. 3.Considerations: TFESI I spent a total of 14 minutes on the date of the service which included preparing to see the patient, [id number]-vk-rygz patient care, completing clinical documentation, obtaining and/or reviewing separately obtained history, performing a medically appropriate examination, counseling and educating the patient/family/caregiver, independently interpreting results (not separately reported), and communicating results to the patient/family/caregiver. SIGNATURE: Liset Mendoza APRN.CNP PATIENT NAME: Roney Larsen DATE: May 02, 2024 TIME: 11:36 AM PAGER: documented in this encounter [facility] 05-02-2024 Note HNO ID: [id number] Author: LISET MENDOZA APRN.CNP Service: ? Author Type: Nurse Practitioner Type: Progress Notes Filed: 05/02/2024 14:34 Note Text: SPINE SURGERY ESTABLISHED VISIT This is a virtual visit using giddyt Zoom Video Visit. It required patient-provider interaction for the medical decision making as documented below. I have communicated my name and active licensure. The patient's identity and physical location were verified at the time of this visit. Either the patient or their legal loan representative has been informed of the risks and benefits of -- and alternatives to -- treatment through a remote evaluation and consents to proceed with the evaluation remotely. DATE OF SERVICE: 05/02/2024 DATE OF LAST VISIT: 03/10/2024 SUBJECTIVE: HPI:Roney Larsen is a 74 year old male presenting s/p left common peroneal injection just above the fibular head on 04/09/2024. Injection took affect could wiggle toes feels like he felt his gait changes and had more Heaviness and tightness in knee and thigh worse, feels symptoms did not improve heaviness feels worse then before. L5 pars fracture bilaterally on November 2023 MRI lumbar Lumbar lami L5 had left hip pain which resolved after surgery Denies any right leg symptoms MEDICATIONS: calcium/magnesium/zinc (GJJEQUM-CFYDZRECOQ-ZLAF) 333-133-5 mg tab Take by mouth. BMBJYPQD-MZI-YA-LYCOPEN-LUTEIN ORAL Take by mouth. Fenofibrate (LOFIBRA) 54 mg tablet loratadine (CLARITIN) 10 mg tablet doxazosin 4 mg tablet Take 1 tablet by mouth daily at bedtime. simvastatin 80 mg tablet Take 1 tablet by mouth daily at bedtime. Patient Entered Questionnaires 03/10/2024 04/25/2024 Spine Questions Pain Location: Leg Leg Pain Duration: 1 to 5 years Pain over last 6 months: Every day or nearly every day in the past 6 months Symptoms from neck/cervical spine: No No Employment Status: Retired Involved in law suit/legal claim: No PROMIS Score Percentiles 03/10/2024 04/25/2024 Physical Health Physical Function Percentile 12 12 Sleep Percentile 95 76 Fatigue Percentile 14 14 Pain Interference Percentile 1 4 03/10/2024 04/25/2024 PROMIS SOCIAL ROLE SCORE Social Role Satisfaction Percentile 18* 31 03/10/2024 PROMIS Global Health Scale Physical Health Percentile 10 Mental Health Percentile 53 Percentiles provide an indication of how the patient's score ranks in relation to the general population. Higher percentile rankings indicate better function/quality of life. 50th percentile is the average of the general population and indicates half of respondents had a worse score. Descriptive Summary for PROMIS Physical Function T-score = 38 (Percentile 12) Much difficulty - Do 2 hours of physical labor. Some difficulty - Walk more than a mile (1.6 km). 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 Reviewed with patient that injection did not really improve his symptoms but rather exacerbated them would like to review with Dr Dockery and follow up with patient on next steps. Patient tired and frustrated with his ongoing symptoms. 1. No Orders Entered Today 2. Follow up: review results of injection with dr dockery and follow up with patient on recommendations. 3.Considerations: SOLO Palmer spent a total of 14 minutes on the date of the service which included preparing to see the patient, cjuk-vg-lfhy patient care, completing clinical documentation, obtaining and/or reviewing separately obtained history, performing a medically appropriate examination, counseling and educating the patient/family/caregiver, independently interpreting results (not separately reported), and communicating results to the patient/family/caregiver. SIGNATURE: Liset Mendoza APRN.CNP PATIENT NAME: Roney Larsen DATE: May 02, 2024 TIME: 11:36 AM PAGER: [facility] 03-10-2024 History of Present illness Narrative Images from the original note were not included. [facility] New Patient Evaluation Consulting Provider: No referring provider defined for this encounter. Individuals who were included in, or assisted with the encounter were: Roney Hilario Mendoza APRN.CNP Chief Complaint/Issues: Roney Larsen is a 74 year old male seen in the [facility] for: Left peroneal neuropathy HPI: Patient states that He had left knee replacement 3 years ago. After surgery he stated that the knee didn't feel right. He feels a constant numb and heaviness from his knee down. Can't walk for too long leg gets heavier can't ride his bike, pedaling agitates his symptoms. He denies difficulty lifting his left foot but states he tends to shuttle with small steps when he walks and catches himself before he falls. Patient also endorses intermittent numbness that radiates down the lateral side of knee and calf. Also has low back pain. Other PMH includes severe vertigo, Afib ablation in Feb; Patient did have an L4-5 and S1 lateral laminectomy in 1993. General Examination: BP 122/64 Pulse 73 Resp 12 Ht 177.8 cm (5' 10) Wt 96.5 kg (212 lb 11.9 oz) SpO2 96% BMI 30.53 kg/m He is accompanied by his spouse. General: Awake, alert, interactive, no acute distress, good nutritional status, normal development, well-kept General appearance: Awake, alert, interactive, no acute distress, good nutritional status, normal development, well-groomed Neurological Exam Mental Status Alert, fully oriented, attentive, with normal cognition, memory, speech and affect. Cranial Nerves Visual lai intact. Fundi with normal discs and vasculature. Pupils reactive. Extraocular movements conjugate and full. No ptosis. No nystagmus. Facial sensation intact. Face symmetric and strong. Palate and tongue normal. XI normal. Assessment & Plan 03/11/2024 - Spine, Liset Mendoza, SOREN.ENTRY LEVEL FINANCE ASSESSMENT Patient presents with left leg numbness and heaviness s/p left knee replacement. Numbness is down the lateral knee and into calf, denies any falls. Also has low back pain and prior laminectomy over 30 years ago. Did PT after knee surgery without improvement. Feels his left leg is weaker than the right. Never felt the same since his knee surgery. Orthopedic MD states there was nothing wrong with implant. November 2023 MRI lumbar REPORT: L5 pars defects bilaterally. Minimal 3 mm anterolithesis. Unchanged (compared to 05/2020 MRI) moderate bilateral L5 foraminal stenosis November 2023 EMG report: left sided peroneal neuropathy with evidence of axon loss. No evidence of LS radiculopathy. Negative tinels over fibular head PLAN Patient has a condition that requires further work up and will continue to manage his medical condition. Discussed conservative vs surgical treatment for peroneal neuropathy including medications, injections and surgery. I reviewed with patient that in order to be a surgical candidate patient has to get diagnostic injection. Patient is agreeable to this and will follow up with me virtually after to see if it was successful. If successful will schedule patient with Dr Dockery to discuss peroneal nerve decompression. All questions answered. Considerations if diagnostic injection negative could try lumbar epidural. Encounter Diagnosis ICD-10-CM 1. Neuralgia of left peroneal nerve G57.32 SPINE INTERVENTION PROCEDURE No follow-ups on file. Data Review Objective Current Outpatient Medications Medication Sig calcium/magnesium/zinc (RBOUTHM-ZTPUTYRZWG-[facility]) 333-133-5 mg tab Take by mouth. SLBRJEXZ-GOM-PY-LYCOPEN-LUTEIN ORAL Take by mouth. Fenofibrate (LOFIBRA) 54 mg tablet loratadine (CLARITIN) 10 mg tablet doxazosin 4 mg tablet Take 1 tablet by mouth daily at bedtime. simvastatin 80 mg tablet Take 1 tablet by mouth daily at bedtime. No current facility-administered medications for this visit. ACTIVE PROBLEM LIST Bph (Benign Prostatic Hyperplasia) Hyperlipidemia Basal Cell Carcinoma of Skin Squamous Cell Skin Cancer Cranial Nerve Vi Palsy Well Adult Exam Elevated [facility]sa PAST MEDICAL HISTORY Diagnosis Date BPH (benign prostatic hyperplasia) Hypercholesteremia PAST SURGICAL HISTORY Procedure Laterality Date PAST SURGICAL HISTORY OF 1992 Laminectomy Lumbar PAST SURGICAL HISTORY OF No ACL in left knee TONSILLECTOMY HX Social History Tobacco Use Smoking status: Former Smokeless tobacco: Never FAMILY HISTORY Problem Relation Age of Onset Coronary Artery Disease Father 50's Hypertension Maternal Grandfather Stroke Maternal Grandfather Review of Systems Lab and Test Review: No visits with results within 3 Month(s) from this visit. Latest known visit with results is: Telephone on 01/13/2014 Component Date Value Ref Range Status PSA 01/15/2014 2.62 (H) 0.00 - 2.59 ng/mL Final Comment: Total PSA test methodology used is the Electrochemiluminescence Immunoassay. The presence of an abnormal result flag in this range (2.6 to 4.0 ng/mL) should not necessarily be an automatic indicator for prostate biopsy. For an individual patient, the significance of a PSA level should be interpreted in a broad clinical context, including age, race, family history, digital rectal exam, prostate size, results of prior testing (prostate biopsy, free PSA, PCA3), and use of 5-alpha reductase inhibitors. Considering the high incidence of asymptomatic cancer in the general population that may not pose an ultimate risk to a patient, the decision to recommend urological evaluation or prostate biopsy should be individualized after consideration of all these factors. REFERENCE: Carrol Freeman M.D., M.P.H., Samuel Fitzgerald M.D., Ph.D., Wade Vazquez M.D., Maggie Oh, M.P.H., Marycruz Avery, Sc.D. Effect of Verification Bias on Screening for Prostate Cancer by Measurement of Prostatic Specific Antigen. N Engl J Med 2003,349:335-42. PSA, Percent Free 01/15/2014 28 % Final Comment: Less than 11% suggestive of prostate cancer. Greater than 23% suggestive of benign condition. Outside Data/Labs: Subjective Patient-Entered Data: NM Treatment and Fall Risk No data to display PROMIS-10 03/10/2024 PROMIS 10 Health, in general Good Quality of life, in general Very good Physical health, in general Fair Mental health, in general Very good Social activities satisfaction Fair Performing ADL's Moderately Social role satisfaction Very good Pain, on average 4 Fatigue, on average Moderate Emotional problems Never PHYSICAL Score 37.4 (Fair) MENTAL Score 50.8 (Very Good) PHQ-9 03/10/2024 PHQ-9 All Questions Little interest or pleasure in doing things 0 Feeling down, depressed, or hopeless 0 Trouble falling or staying asleep, or sleeping too much 0 Feeling tired or having little energy 1 Poor appetite or overeating 0 Feeling bad about yourself - or that you are a failure or have let yourself or your family down 0 Trouble concentrating on things, such as reading the newspaper or watching television 0 Moving or speaking so slowly that other people could have noticed. Or the opposite - being so fidgety or restless that you have been moving around a lot more than usual 0 Thoughts that you would be better off , or of hurting yourself in some way 0 PHQ-9 Score 1 (0-4) minimal depression (5-9) mild depression (10-14) moderate depression (15-19) moderately severe depression (20-27) severe depression I spent a total of 30 minutes on the date of the service which included preparing to see the patient, einf-or-winp patient care, completing clinical documentation, obtaining and/or reviewing separately obtained history, performing a medically appropriate examination, counseling and educating the patient/family/caregiver, ordering medications, tests, or procedures, communicating with other HCPs (not separately reported), independently interpreting results (not separately reported), and communicating results to the patient/family/caregiver. Liset Mendoza APRN.DAVIS documented in this encounter [facility] 03-10-2024 Note HNO ID: [id number] Author: LISET MENDOZA APRN.CNP Service: ? Author Type: Nurse Practitioner Type: Progress Notes Filed: 03/11/2024 14:40 Note Text: [facility] New Patient Evaluation Consulting Provider: No referring provider defined for this encounter. Individuals who were included in, or assisted with the encounter were: Roney Larsen Liset Mendoza APRN.CNP Chief Complaint/Issues: Roney Larsen is a 74 year old male seen in the [facility] for: Left peroneal neuropathy HPI: Patient states that He had left knee replacement 3 years ago. After surgery he stated that the knee didn't feel right. He feels a constant numb and heaviness from his knee down. Can't walk for too long leg gets heavier can't ride his bike, pedaling agitates his symptoms. He denies difficulty lifting his left foot but states he tends to shuttle with small steps when he walks and catches himself before he falls. Patient also endorses intermittent numbness that radiates down the lateral side of knee and calf. Also has low back pain. Other PMH includes severe vertigo, Afib ablation in Feb; Patient did have an L4-5 and S1 lateral laminectomy in 1993. General Examination: BP 122/64 Pulse 73 Resp 12 Ht 177.8 cm (5' 10) Wt 96.5 kg (212 lb 11.9 oz) SpO2 96% BMI 30.53 kg/m? He is accompanied by his spouse. General: Awake, alert, interactive, no acute distress, good nutritional status, normal development, well-kept General appearance: Awake, alert, interactive, no acute distress, good nutritional status, normal development, well-groomed Neurological Exam Mental Status Alert, fully oriented, attentive, with normal cognition, memory, speech and affect. Cranial Nerves Visual lai intact. Fundi with normal discs and vasculature. Pupils reactive. Extraocular movements conjugate and full. No ptosis. No nystagmus. Facial sensation intact. Face symmetric and strong. Palate and tongue normal. XI normal. Assessment AND Plan 03/11/2024 - Spine, Liset Mendoza APRN.ENTRY LEVEL FINANCE ASSESSMENT Patient presents with left leg numbness and heaviness s/p left knee replacement. Numbness is down the lateral knee and into calf, denies any falls. Also has low back pain and prior laminectomy over 30 years ago. Did PT after knee surgery without improvement. Feels his left leg is weaker than the right. Never felt the same since his knee surgery. Orthopedic MD states there was nothing wrong with implant. November 2023 MRI lumbar REPORT: L5 pars defects bilaterally. Minimal 3 mm anterolithesis. Unchanged (compared to 05/2020 MRI) moderate bilateral L5 foraminal stenosis November 2023 EMG report: left sided peroneal neuropathy with evidence of axon loss. No evidence of LS radiculopathy. Negative tinels over fibular head PLAN Patient has a condition that requires further work up and will continue to manage his medical condition. Discussed conservative vs surgical treatment for peroneal neuropathy including medications, injections and surgery. I reviewed with patient that in order to be a surgical candidate patient has to get diagnostic injection. Patient is agreeable to this and will follow up with me virtually after to see if it was successful. If successful will schedule patient with Dr Dockery to discuss peroneal nerve decompression. All questions answered. Considerations if diagnostic injection negative could try lumbar epidural. Encounter Diagnosis ICD-10-CM 1. Neuralgia of left peroneal nerve G57.32 SPINE INTERVENTION PROCEDURE No follow-ups on file. Data Review Objective Current Outpatient Medications Medication Sig calcium/magnesium/zinc (HOJNSBS-DNVLGMTLLP-PCOH) 333-133-5 mg tab Take by mouth. WEJGBLRY-FQE-LJ-LYCOPEN-LUTEIN ORAL Take by mouth. Fenofibrate (LOFIBRA) 54 mg tablet loratadine (CLARITIN) 10 mg tablet doxazosin 4 mg tablet Take 1 tablet by mouth daily at bedtime. simvastatin 80 mg tablet Take 1 tablet by mouth daily at bedtime. No current facility-administered medications for this visit. ACTIVE PROBLEM LIST Bph (Benign Prostatic Hyperplasia) Hyperlipidemia Basal Cell Carcinoma of Skin Squamous Cell Skin Cancer Cranial Nerve Vi Palsy Well Adult Exam Elevated Psa PAST MEDICAL HISTORY Diagnosis Date BPH (benign prostatic hyperplasia) Hypercholesteremia PAST SURGICAL HISTORY Procedure Laterality Date PAST SURGICAL HISTORY OF 1992 Laminectomy Lumbar PAST SURGICAL HISTORY OF No ACL in left knee TONSILLECTOMY HX Social History Tobacco Use Smoking status: Former Smokeless tobacco: Never FAMILY HISTORY Problem Relation Age of Onset Coronary Artery Disease Father 50's Hypertension Maternal Grandfather Stroke Maternal Grandfather Review of Systems Lab and Test Review: No visits with results within 3 Month(s) from this visit. Latest k (more content not included)... [facility] 03-06-2024 Note HNO ID: [id number] Author: GATITO OLIVIER MD Service: ? Author Type: Physician Type: Progress Notes Filed: 03/06/2024 16:32 Note Text: Please see finalized ultrasound report filed under Procedures. Gatito Olivier MD Staff, [facility] 03-06-2024 History of Present illness Narrative Please see finalized ultrasound report filed under Procedures. Gatito Olivier MD Staff, [facility] documented in this encounter [facility] 12-19-2023 Note HNO ID: [id number] Author: LISET MENDOZA APRN.ENTRY LEVEL FINANCE Service: ? Author Type: Nurse Practitioner Type: Progress Notes Filed: 12/19/2023 11:02 Note Text: Referred by SELF Request for second opinion regarding previously recommended surgery: NO Imaging: November 2023 MRI lumbar REPORT: L5 pars defects bilaterally. Minimal 3 mm anterolithesis. Unchanged (compared to 05/2020 MRI) moderate bilateral L5 foraminal stenosis November 2023 MRI cervical REPORT: mild to moderate stenosis at C4/5 with severe right C5 FS. mild to moderate stenosis at C5/6 with moderate to severe bilateral C5 FS. November 2023 EMG report: left sided peroneal neuropathy with evidence of axon loss. No evidence of LS radiculopathy. Sx: Leg (L) heaviness, numbness, weakness CMT HEP Hx of prior spine surgery 1992 lumbar BMI: unavailable HgbA1c: unavailable Smoking status: unavailable Recommendations: Please schedule with liset mendoza in person after NM US completed can be same day. Indications for recommendations: could consider AMADOR vs peroneal inj based on PE and NM US findings Please advise pt to send/upload images prior to visit or hand carry on CD to visit (MRIs) [facility] 12-19-2023 History of Present illness Narrative Referred by SELF Request for second opinion regarding previously recommended surgery: NO Imaging: November 2023 MRI lumbar REPORT: L5 pars defects bilaterally. Minimal 3 mm anterolithesis. Unchanged (compared to 05/2020 MRI) moderate bilateral L5 foraminal stenosis November 2023 MRI cervical REPORT: mild to moderate stenosis at C4/5 with severe right C5 FS. mild to moderate stenosis at C5/6 with moderate to severe bilateral C5 FS. November 2023 EMG report: left sided peroneal neuropathy with evidence of axon loss. No evidence of LS radiculopathy. Sx: Leg (L) heaviness, numbness, weakness CMT HEP Hx of prior spine surgery 1992 lumbar BMI: unavailable HgbA1c: unavailable Smoking status: unavailable Recommendations: Please schedule with liset mendoza in person after NM US completed can be same day. Indications for recommendations: could consider AMADOR vs peroneal inj based on PE and NM US findings Please advise pt to send/upload images prior to visit or hand carry on CD to visit (MRIs) Patient name: Roney Larsen Are you being referred by a [facility] or Pain Management Provider at [facility]? No If answer is YES please schedule directly with surgeon, triage does not need to be completed. Is this a self-referral Yes If not, who is the Referring Provider Is this a 2nd opinion from another spine surgeon? No Were you offered surgery? No MRI/CT/myelogram within 12 months? Yes If NO, please refer to medical spine or PCP to complete above imaging, triage does not need to be completed If YES, please ask for the name/address of the facility where the MRI/CT/myelogram was completed: [facility] Address: [address] [place] [address] MRI/CT/myelogram viewable in Epic: No If not, please provide [phone] to fax in imaging reports for review. Also, please inform patient to hand carry imaging disc to appointment. XR (spine) within 12 months: No If YES, please ask for the name/address of the facility where the XR was completed: Dr. Dockery's patients: Have you had previous EMG/Nerve Conduction Study, Ultrasound, or MRI for these same symptoms? If YES, please ask for the name/address of the facility where they were completed: Requested provider (First and Last name): UN Are you interested in a virtual visit if offered? No 1. Where are you having symptoms related to this visit? Leg (L) heaviness, numbness, weakness Back pain No Leg pain No Arm pain No Neck pain No 2. Are you having any of the following symptoms: Difficulty walking Yes Weakness Numbness Yes Weakness Yes Trouble using your hands? No 3. Have you had any injections or physical therapy in the last 12 months? If YES then please ask for the name/address of the facility where the injections and/or physical therapy was completed [facility] Have you tried any other kinds of non-surgical treatments in the last 12 months? (For example: NSAIDS, muscle relaxants, analgesics, oral steroids, Chiropractor, Acupuncture): 4. Are you currently taking daily prescribed narcotic medications for your current symptoms (For example Oxycodone, Hydrocodone, Tramadol, Morphine, Other)? No 5. Have you had previous spinal surgery for this same symptoms? Yes If YES please ask for the name of facility/address of where the surgery was completed: [facility] Address: [address] [place] [address] Additional Comments [phone] (Home Phone) documented in this encounter [facility] 12-06-2023 Note HNO ID: [id number] Author: ?, ?, ? Service: ? Author Type: ? Type: Progress Notes Filed: 12/19/2023 11:02 Note Text: Patient name: Roney Larsen Are you being referred by a [facility] Spine Health Provider or Pain Management Provider at [facility]? No If answer is YES please schedule directly with surgeon, triage does not need to be completed. Is this a self-referral Yes If not, who is the Referring Provider Is this a 2nd opinion from another spine surgeon? No Were you offered surgery? No MRI/CT/myelogram within 12 months? Yes If NO, please refer to medical spine or PCP to complete above imaging, triage does not need to be completed If YES,? please ask for the name/address of the facility where the MRI/CT/myelogram was completed: [facility] Address: [address] [place] [address] MRI/CT/myelogram viewable in Epic: No If not, please provide [phone] to fax in imaging reports for review. Also, please inform patient to hand carry imaging disc to appointment. XR (spine) within 12 months: No If YES,? please ask for the name/address of the facility where the XR was completed: Dr. Dockery's patients: Have you had previous EMG/Nerve Conduction Study, Ultrasound, or MRI for these same symptoms? If YES,? please ask for the name/address of the facility where they were completed: Requested provider (First and Last name): UN Are you interested in a virtual visit if offered? No 1. Where are you having symptoms related to this visit? Leg (L) heaviness, numbness, weakness Back pain No Leg pain No Arm pain No Neck pain No 2. Are you having any of the following symptoms: Difficulty walking Yes Weakness Numbness Yes Weakness Yes Trouble using your hands? No 3. Have you had any injections or physical therapy in the last 12 months? If YES then please ask for the name/address of the facility where the injections and/or physical therapy was completed [facility] Have you tried any other kinds of non-surgical treatments in the last 12 months? (For example: NSAIDS, muscle relaxants, analgesics, oral steroids, Chiropractor, Acupuncture): 4. Are you currently taking daily prescribed narcotic medications for your current symptoms (For example Oxycodone, Hydrocodone, Tramadol, Morphine, Other)? No 5. Have you had previous spinal surgery for this same symptoms? Yes If YES? please ask for the name of facility/address of where the surgery was completed: 1992 [facility] Address: [address] [address] Additional Comments [phone] (Home Phone) [facility] 02-12-2023 History and physical note Note Date/Time February 12, 2023 12:21pm [facility] Medical Records Department [address] [place] [id number] H&P Exam - Hospitalist 02/12/23 1212 MR#: [id number] Acct: [id number] Name: RONEY LARSEN Rep #:[id number] : 1950 72 From: Abhay Han agnieszka PCP: Dr. Rin Du MD Status:A DM [facility] Location: [place] [address] HPI - General General Date of Admission: 02/12/23 Date of Service: 02/12/23 Chief Complaint: CVA rule out HPI Narrative RONEY LARSEN, is a 72 M with history of bilateral carotid artery stenosis, hyperlipidemia, hypertension, paroxysmal A-fib s/p ablation in 2019 and BPH who presented to [facility] on 02/12/2023 with worsening dizziness. Patient seen at bedside, and daughter present. Patient sitting comfortablyin bed, conversing normally, no acute distress. Patient states that the dizziness started this morning for him and has now persisted for about 4 to 5 hours. Reports that he currently feels moderately dizzy with certain movements of his head. He has had some dizziness in the past but never anything like this. States he gets dizzy at home sometimes when getting out of bed at night to go to the bathroom. Sometimes has mild dizziness with going from sitting to standing as well. Has notably been on the same dose of doxazosin for many years. He denies any recent trauma. Denies any recent upper respiratory infections. Denies any ear pain or discomfort. Denies any vision changes. Denies any eye pain. Denies any weakness or sensory changes of the upper or lower extremities. Denies any weakness or sensory changes of the face. Has been taking all home medications as prescribed. No other acute concerns at thistime. Vital stable in the ED. Labs unremarkable. CT brain with no intracranial abnormalities. CTA head/neck shows narrowing of both ICAs and right vertebral artery without critical stenosis or occlusion. Chest x-ray nonacute. [facility] Medical History Ambulates with cane Arthritis BPH (benign prostatic hyperplasia) Cancer Carotid artery stenosis Elbow joint stiffness, bilateral Essential hypertension History of basal cell carcinoma History of pain when walking History of skin cancer History of squamous cell carcinoma Knee pain Left knee DJD Non-smoker Paroxysmal atrial fibrillation Seasonal allergies Shoulder pain Wears glasses Home Medications [id number]-lt-xdojr 300 mcg-K 60 mcg-lycop 600 mcg-lutein 300 mcg tablet (Centrum Silver Men) 1 tab PO DAILY 09/29/19 [History Last Taken 02/21/21 20:00] niacin 100 mg tablet 500 mg PO DAILY 11/12/20 [History Last Taken 02/21/21 20:00] kipmyrg-iqmivbkla-fbac 333 mg-133 mg-5 mg tablet 1 tab PO DAILY 01/28/21 [History Last Taken 02/21/21 20:00] cholecalciferol (vitamin D3) 50 mcg (2,000 unit) capsule (Vitamin D3) 50 mcg PO DAILY 02/08/21 [History Last Taken 02/21/21 20:00] acetaminophen 500 mg oral powder packet (Tylenol Extra Strength) 500 mg PO Q6H PRN 04/04/21 [History Last Taken Unknown] ascorbate calcium (vitamin C) 500 mg tablet 1 g PO DAILY 11/02/21 [History Last Taken Unknown] ibuprofen 400 mg tablet 600 mg PO BID PRN 03/28/22 [History Last Taken Unknown] omega 0-ssg-aqp-fish oil 1,200 mg (144 mg-216 mg) capsule (Fish Oil) 2 cap PO DAILY 03/28/22 [History Last Taken Unknown] aspirin 81 mg tablet,delayed release 81 mg PO DAILY 08/10/22 [History Last Taken Unknown] simvastatin 80 mg tablet 80 mg PO QPM #90 tabs 11/10/22 [Rx Last Taken Unknown] doxazosin 4 mg tablet (Cardura) 4 mg PO QDAY #90 tabs 02/06/23 [Rx Last Taken Unknown] fenofibrate 54 mg tablet 54 mg PO DAILY #90 tabs 02/06/23 [Rx Last Taken Unknown] loratadine 10 mg tablet (Claritin) 10 mg PO DAILY PRN allergy symptoms #90 tabs 02/06/23 [Rx Last Taken Unknown] Allergy/AdvReac Type Severity Reaction Status Date / Time diazepam AdvReac Severe hallucinati Verified 01/22/23 14:08 ons oxycodone AdvReac Severe hallucinati Verified 01/22/23 14:08 ons Family History Father Heart disease COPD (chronic obstructive pulmonary disease) Brother Cancer melanoma Mother Paroxysmal atrial fibrillation Surgical History History of basal cell carcinoma excision History of cardiac radiofrequency ablation (RFA) (02/2019) History of eyelid surgery Hx of basal cell carcinoma excision Hx of colonoscopy Hx of laminectomy Status post repair of anterior cruciate ligament Social History Smoking Status: Former smoker how long ago did patient quit smokin alcohol intake: current alcohol intake frequency: 0-2 drinks per day Alcohol type: beer details: rarely, social substance use type: does not use caffeine: Yes Type: carbonated beverages what type of physical activity do you participate in: walking frequency: daily ROS Constitutional Constitutional: Denies chills, fever(s) or weakness Eyes Eyes: Denies blurry vision or change in vision ENT HEENT: Denies abnormal hearing or ear pain Cardiovascular Cardiovascular: Denies chest pain or dyspnea on exertion Respiratory/Chest Respiratory/Chest: Denies cough Gastrointestinal Gastrointestinal: Denies abdominal pain Neurologic Neurologic: Reports dizziness; Denies abnormal gait, abnormal speech, confusion,focal weakness, headache(s), numbness, paresthesias or syncope Vital Signs Vital Signs Vital Signs: 02/12/23 10:29 02/12/23 10:39 02/12/23 10:48 Temperature 97.3 F L Temperature Source Temporal Pulse Rate 60 72 Respiratory Rate 15 14 Blood Pressure 145/56 H 133/62 H Blood Pressure Mean 85 85 Pulse Ox 96 99 Oxygen Delivery Method Room Air Room Air Room Air Weight Weight: 94.7 kg Body Mass Index (BMI) 29.9 Physical Exam Const alert, oriented x3, no apparent distress, average body habitus, healthy appearing and well nourished Constitutional Narrative: Pleasant elderly male, sitting comfortably in bed, conversing normally, no acutedistress. General Appearance: cooperative, comfortable, well kempt and well developed HEENT normocephalic, head/scalp atraumatic, hearing grossly normal bilaterally, nasal mucous membranes and turbinates normal and moist oral mucous membranes Eyes PERRL, EOMs intact bilaterally and conjunctivae normal Neck full ROM, no lymphadenopathy and supple Lymph Lymphatic: no lymphadenopathy noted Chest inspection of chest normal Resp normal respiratory effort, normal air movement, no use of accessory muscles and clear to auscultation bilaterally Cardio regular rate, regular rhythm, no murmurs and peripheral pulses 2+ throughout GI normal to inspection, nondistended, normoactive bowel sounds, soft to palpation,non-tender and non-distended Back/Spine normal ROM Extremity normal to inspection, full ROM and no pedal edema Skin no rashes or lesions noted Neuro oriented x3 Neuro Narrative: Patient notes dizziness with movement of head in multiple directions, however noovert neurologic changes noted on exam. Sensorium / Orientation: awake and alert Speech: speech normal Motor Exam: strength 5/5 throughout Psych mental status grossly normal Results Lab / Micro Data 02/12/23 10:30 02/12/23 10:30 Labs: Laboratory Results - last 24 hr 02/12/23 10:30: WBC 4.3 L, RBC 4.42 L, Hgb 14.2, Hct 42.6, MCV 96.4 H, MCH 32.1 H, MCHC 33.3, RDW Std Deviation 43.0, RDW Coeff of Uriel 12.2, Plt Count 180, MPV 9.5, Immature Gran % (Auto) 0.200, Neut % (Auto) 59.1, Lymph % (Auto) 32.2, [place]% (Auto) 6.9, Eos % (Auto) 1.4, Baso % (Auto) 0.2, Absolute Neuts (auto) 2.6, Absolute Lymphs (auto) 1.39, Nucleated RBC % 0, PT 14.1, INR 1.1, APTT 29.7, Sodium 140, Potassium 4.0, Chloride 110 H, Carbon Dioxide 26.0, Anion Gap 4 L, BUN 24 H, Creatinine 1.44 H, Estim Creat Clear Calc 47.88, Est GFR (MDRD) Af Amer 62, Est GFR (MDRD) Non-Af 51 L, BUN/Creatinine Ratio 16.7, Glucose 109 H, Calcium 9.2, Troponin I High Sens 9 02/12/23 10:46: POC Glucose 128 H Radiology Impression Brain CT 02/12/23 10:30 IMPRESSION: No acute intracranial abnormality. Aspect score 10. N.B. : The above Results were Read Back by Pedro Ochoa MD to Noel Banegas MD, and understanding confirmed on 02/12/2023 10:50:22 (ET). Electronically Signed: Pedro Ochoa MD at 10:51 EDT , ADDENDUM: 02/12/23 1058 IMPRESSION: No acute intracranial abnormality. Aspect score 10. N.B. : The above Results were Read Back by Pedro Ochoa MD to Noel Banegas MD, and understanding confirmed on 02/12/2023 10:50:22 (ET). Electronically Signed: Pedro Ochoa MD at 10:51 EDT , Chest X-Ray 02/12/23 10:30 IMPRESSION: No acute cardiopulmonary disease. Electronically Signed: Pedro Ochoa MD at 12:04 EDT , Head/Neck CTA 02/12/23 10:31 IMPRESSION: Narrowing of both ICAs and right vertebral artery without critical stenosis or occlusion. Intact intracranial vessels. N.B. : The above Results were Read Back by Pedro Ochoa MD to Noel Banegas MD, and understanding confirmed on 02/12/2023 11:06:31 (ET). Electronically Signed: Pedro Ochoa MD at 11:11 EDT , ADDENDUM: 02/12/23 1118 IMPRESSION: Narrowing of both ICAs and right vertebral artery without critical stenosis or occlusion. Intact intracranial vessels. N.B. : The above Results were Read Back by Pedro Ochoa MD to Noel Banegas MD, and understanding confirmed on 02/12/2023 11:06:31 (ET). Electronically Signed: Pedro Ochoa MD at 11:11 EDT , Assessment & Plan Assessment/Plan (1) Dizziness: PLAN: Plan Patient is a 72-year-old male with history of bilateral carotid artery stenosis,hyperlipidemia, hypertension, paroxysmal A-fib s/p ablation in 2019 and BPH who presented to [facility] on 02/12/2023 with worsening dizziness. 1. CVA rule out Have higher concern for BPPV, orthostatic hypotension or alternative less severeetiology at this point. However, patient does have risk factors for stroke. Has known bilateral carotid artery stenosis, follows with vascular surgery. Carotid ultrasound done in September 2022 showed greater than 50% stenosis of left external carotid artery, less than 50% stenosis of right external carotid artery, unchanged from carotid ultrasound from 2021. CTA head/neck on admit shows no acute changes and carotid stenosis as noted above. Has known hyperlipidemia, taking home medications as prescribed. Has history of A-fib with ablation in 2019, with no known recurrence since then. Notably had NIH score of 0 in ED. ?We will admit to observation bed in PCU. MRI brain without contrast ordered. Lipid panel, A1c, UA ordered. TTE ordered. PT/OT consulted. Check orthostaticvitals. No need for permissive hypertension at this time. Continue home aspirin, statin, fenofibrate and niacin. If work-up is negative, likely okay for discharge home tomorrow. 2. Bilateral carotid artery stenosis ? CTA head/neck on admission with no acute changes from previous findings on carotid ultrasound. No need for further work-up at this time. Continue medications for hyperlipidemia as below. Outpatient follow-up with vascular surgery as needed. 3. Hypertension ? Only on doxazosin 4 mg daily. Has been on this for many years. Reports symptoms that do seem somewhat consistent with orthostatic hypotension. Checking orthostatic vitals as above. Okay to continue doxazosin. 4. BPH ? Continue home doxazosin as above. 5. CKD ? Suspect due to hypertension. Baseline creatinine around 1.3-1.4, creatinine 1.4 on admission. No need to monitor further BMPs. 6. Hyperlipidemia ? Continue home statin, fenofibrate, niacin. 7. History of paroxysmal A-fib with ablation ? Had ablation done in 2019. No known recurrence of A-fib per patient and family. EKG with normal sinus rhythm on admit. TTE ordered as above. Monitor telemetry. DVT prophylaxis: Lovenox CODE STATUS: Full code Expected disposition: Home, 1 to 2 days Total clinical time spent by myself addressing the patient's medical issues, reviewing all the data, and collaborating with patient's care team: 55 minutes. Charges/Coding Visit Charges Inpatient E&M: 57950 Init Hosp L2 02/12/23 1437 <Electronically signed by Abhay Lopez DO> Cosigner Signature (if applicable): CC: Dr. Abhay Lopez DO; Dr. Rin Du MD~ Signed [facility] Work Phone: [phone]) 108-441809-04-2023 Discharge summary Author Noel Bassam [facility] February 12, 2023 1:41pm Note Date/Time February 12, 2023 10:40am [facility] Medical Records Department [facility] [place] [address] Emergency Department Summary 02/12/23 MR#: [id number] Acct: [id number] Name: RONEY LARSEN Rep #:[id number] : 1950 72 From: Noel Banegas MD PCP: Dr. Rin Du MD Status:A DM [facility] Location: [address] History of Present Illness Chief Complaint: Dizziness Detail of Chief Complaint: Balance off Informant: patient and spouse/S.O. Onset/Context/Timing Onset: - (Last known well 2299February 11) Context: Sudden Onset (Presumed) Timing: Continuous Quality and Location: Positive for Difficulty with Ambulation Onset: Last known well at 2299February 11 Associated Symptoms Associated Symptoms: Positive for Headache; Negative for Nausea, Vomiting or Chest Pain Narrative Narrative: Patient is a 72-year-old male with history of hypercholesterolemia, and carotid disease per history who had 2 episodes of dizziness over the past 2 weeks. Hewent to bed last evening at 2300. He awoke this morning with symptoms. Is having trouble with balance and dizziness which he describes as his balance being off. He denies any ocular or visual symptoms. In light of this history and patient's age stroke team was initiated from triage. Order set was initiated. Will complete history once patient returns from radiology suite Prior similar symptoms: Yes Recent Illness/Hospitalization: No PFSH PFSH Medical History Ambulates with cane Arthritis BPH (benign prostatic hyperplasia) Cancer Carotid artery stenosis Elbow joint stiffness, bilateral Essential hypertension History of basal cell carcinoma History of pain when walking History of skin cancer History of squamous cell carcinoma Knee pain Left knee DJD Non-smoker Paroxysmal atrial fibrillation Seasonal allergies Shoulder pain Wears glasses Home Medications gekrcwvl-nf-aboah 300 mcg-K 60 mcg-lycop 600 mcg-lutein 300 mcg tablet (Centrum Silver Men) 1 tab PO DAILY 09/29/19 [History Last Taken 02/21/21 20:00] niacin 100 mg tablet 500 mg PO DAILY 11/12/20 [History Last Taken 02/21/21 20:00] bkskrho-gtnumsyzz-xxht 333 mg-133 mg-5 mg tablet 1 tab PO DAILY 01/28/21 [History Last Taken 02/21/21 20:00] cholecalciferol (vitamin D3) 50 mcg (2,000 unit) capsule (Vitamin D3) 50 mcg PO DAILY 02/08/21 [History Last Taken 02/21/21 20:00] acetaminophen 500 mg oral powder packet (Tylenol Extra Strength) 500 mg PO Q6H PRN 04/04/21 [History Last Taken Unknown] ascorbate calcium (vitamin C) 500 mg tablet 1 g PO DAILY 11/02/21 [History Last Taken Unknown] ibuprofen 400 mg tablet 600 mg PO BID PRN 03/28/22 [History Last Taken Unknown] omega 2-tdm-vnq-fish oil 1,200 mg (144 mg-216 mg) capsule (Fish Oil) 2 cap PO DAILY 03/28/22 [History Last Taken Unknown] aspirin 81 mg tablet,delayed release 81 mg PO DAILY 08/10/22 [History Last Taken Unknown] simvastatin 80 mg tablet 80 mg PO QPM #90 tabs 11/10/22 [Rx Last Taken Unknown] doxazosin 4 mg tablet (Cardura) 4 mg PO QDAY #90 tabs 02/06/23 [Rx Last Taken Unknown] fenofibrate 54 mg tablet 54 mg PO DAILY #90 tabs 02/06/23 [Rx Last Taken Unknown] loratadine 10 mg tablet (Claritin) 10 mg PO DAILY PRN allergy symptoms #90 tabs 02/06/23 [Rx Last Taken Unknown] Allergy/AdvReac Type Severity Reaction Status Date / Time diazepam AdvReac Severe hallucinati Verified 01/22/23 14:08 ons oxycodone AdvReac Severe hallucinati Verified 01/22/23 14:08 ons Family History Father Heart disease COPD (chronic obstructive pulmonary disease) Brother Cancer melanoma Mother Paroxysmal atrial fibrillation Surgical History History of basal cell carcinoma excision History of cardiac radiofrequency ablation (RFA) (02/2019) History of eyelid surgery Hx of basal cell carcinoma excision Hx of colonoscopy Hx of laminectomy Status post repair of anterior cruciate ligament Social History Smoking Status: Former smoker how long ago did patient quit smokin alcohol intake: current alcohol intake frequency: 0-2 drinks per day Alcohol type: beer details: rarely, social substance use type: does not use caffeine: Yes Type: carbonated beverages what type of physical activity do you participate in: walking frequency: daily ROS ROS ED Constitutional Constitutional ED: Denies chills, fever(s), subjective, sweats or weakness Eyes Eyes: Denies blurry vision, change in vision or diplopia ENT ENT ED: Denies ear pain, rhinorrhea or sore throat Cardiovascular Cardiovascular: Denies chest pain, palpitations, paroxysmal nocturnal dyspnea orracing heartbeat Respiratory/Chest Respiratory/Chest: Denies cough, dyspnea, dyspnea on exertion or paroxysmal nocturnal dyspnea Gastrointestinal Gastrointestinal: Denies abdominal pain, nausea or vomiting Musculoskeletal Musculoskeletal: Denies arthralgias, back pain, myalgias or neck pain Integumentary Denies rash Neurologic Neurologic: Reports headache(s); Denies paresthesias or weakness Psychiatric Psychiatric: Denies anxiety or depression Hematologic/Lymphatic Hematologic/Lymphatic: Denies easy bleeding or easy bruising EXAM Physical Exam Const Vital Signs: 02/12/23 10:29 02/12/23 10:39 02/12/23 10:48 Temperature 97.3 F L Temperature Source Temporal Pulse Rate 60 72 Respiratory Rate 15 14 Blood Pressure 145/56 H 133/62 H Blood Pressure Mean 85 85 Pulse Ox 96 99 Oxygen Delivery Method Room Air Room Air Room Air Positive well nourished and well developed General Appearance ED: well developed and NAD HEENT Reports moist mucous membranes atraumatic Nose: other Other Details: Nares are patent. Posterior pharynx normal. Eyes PERRL and EOMs intact bilaterally Eyes Narrative: There is no nystagmus. Neck no lymphadenopathy, supple and no JVD Chest Wall inspection of chest normal and palpation of chest normal Resp normal respiratory effort and clear to auscultation bilaterally Cardio no murmurs Rate: regular rate Rhythm: regular rhythm Heart Sounds: S1 normal and S2 normal GI normal to inspection, nondistended, normoactive bowel sounds, soft to palpation,non-tender and non-distended Extremity normal to inspection Neuro oriented x3, CN's II-XII intact bilaterally and no sensory deficits noted Parmelee Coma Scale: document GCS findings Spontaneous Obeys Commands Oriented 15 Sensorium / Orientation: alert Motor Exam: strength 5/5 throughout Psych mental status grossly normal Skin no wounds Lesions: no lesions Rashes: no rashes NIHSS NIHSS Initial: 1a Level of Consciousness: 0 1b LOC Questions (Score 2 if aphasic/stupor): 0 1c LOC Commands (Only score 1st attempt): 0 2 Best Gaze (If aphasic, use reflexive mvmts.): 0 3 Visual: 0 (Patient reported fussiness right visual field) 4 Facial Palsy: 0 5 Motor Arm Right (UN = amputation/fusion): 0 5 Motor Arm Left: 0 6 Motor Leg Right: 0 6 Motor Leg Left: 0 7 Limb ataxia (Only + if out of proportion): 0 8 Sensory (Aphasia/stupor=0 or 1, coma=2): 0 9 Best Language: 0 10 Dysarthria (mute, coma=2, intubated=UN): 0 11 Extinction and Inattention (only scored if +): 0 Total Score: 0 MDM MDM MDM Narrative Medical decision making narrative: Throat team was called from triage. Patient has vertigo and problems with balance. He also complains of blurred vision right visual field. 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 CT of the head without contrast and CTA of the headneck was obtained to assess patient's vasculature. I did receive a call from radiologist and the unenhanced scan is normal. I have received a call at approximately 1050 History & Record Review Discussion w/independent historian: Patient and Significant other Lab Data Attestation: I reviewed the patient's lab results. Lab results narrative: CBC is unremarkable. Labs: Laboratory Results - last 24 hr 02/12/23 02/12/23 10:30 10:46 WBC 4.3 L RBC 4.42 L Hgb 14.2 Hct 42.6 MCV 96.4 H MCH 32.1 H MCHC 33.3 RDW Std Deviation 43.0 RDW Coeff of Uriel 12.2 Plt Count 180 MPV 9.5 Immature Gran % (Auto) 0.200 Neut % (Auto) 59.1 Lymph % (Auto) 32.2 [place] % (Auto) 6.9 Eos % (Auto) 1.4 Baso % (Auto) 0.2 Absolute Neuts (auto) 2.6 Absolute Lymphs (auto) 1.39 Nucleated RBC % 0 PT 14.1 INR 1.1 APTT 29.7 Sodium 140 Potassium 4.0 Chloride 110 H Carbon Dioxide 26.0 Anion Gap 4 L BUN 24 H Creatinine 1.44 H Estim Creat Clear Calc 47.88 Est GFR (MDRD) Af Amer 62 Est GFR (MDRD) Non-Af 51 L BUN/Creatinine Ratio 16.7 Glucose 109 H Calcium 9.2 Troponin I High Sens 9 POC Glucose 128 H Radiography Diagnostic Testing: Clinical Impression(s) from Imaging Studies Brain CT 02/12/23 10:30 IMPRESSION: No acute intracranial abnormality. Aspect score 10. N.B. : The above Results were Read Back by Pedro Ochoa MD to Noel Banegas MD, and understanding confirmed on 02/12/2023 10:50:22 (ET). Electronically Signed: Pedro Ochoa MD at 10:51 EDT , ADDENDUM: 02/12/23 1058 IMPRESSION: No acute intracranial abnormality. Aspect score 10. N.B. : The above Results were Read Back by Pedro Ochoa MD to Noel Banegas MD, and understanding confirmed on 02/12/2023 10:50:22 (ET). Electronically Signed: Pedro Ochoa MD at 10:51 EDT , Chest X-Ray 02/12/23 10:30 IMPRESSION: No acute cardiopulmonary disease. Electronically Signed: Pedro Ochoa MD at 12:04 EDT , Head/Neck CTA 02/12/23 10:31 IMPRESSION: Narrowing of both ICAs and right vertebral artery without critical stenosis or occlusion. Intact intracranial vessels. N.B. : The above Results were Read Back by Pedro Ochoa MD to Noel Banegas MD, and understanding confirmed on 02/12/2023 11:06:31 (ET). Electronically Signed: Pedro Ochoa MD at 11:11 EDT , ADDENDUM: 02/12/23 1118 IMPRESSION: Narrowing of both ICAs and right vertebral artery without critical stenosis or occlusion. Intact intracranial vessels. N.B. : The above Results were Read Back by Pedro Ochoa MD to Noel Banegas MD, and understanding confirmed on 02/12/2023 11:06:31 (ET). Electronically Signed: Pedro Ochoa MD at 11:11 EDT , EKG Initial EKG: Attestation: I personally reviewed and interpreted this EKG as follows: Interpretation: Sinus Rhythm (Rate is 62. EKG is normal. [place] interval is 196 ms per cures duration 78 ms. QT duration 410 ms. Roscoe is normal.) Management Discussion w/another healthcare provider: Hospitalist (For admission to PCU observation and order appropriate TIA work-up) and Assistant Librarian (Spoke with the neurologist at [facility]. She recommends MRI. MRI to rule out benign positional vertigo atypical presentation versus vertebrobasilar insufficiency.) Discharge Plan Triage Chief Complaint: Dizziness ED Provider: Noel Banegas Dx/Rx/DC Orders Clinical Impression: Carotid artery stenosis, Essential hypertension, Hyperlipemia, Coordination problem Primary Care Provider: Rin Du Disposition Disposition: Home, Self Care Discharge Date/Time: 02/12/23 12:52 What to do if you have Problems For any increased pain, shortness of breath, bleeding, nausea or vomiting, chestpain, or any unexpected problems, contact your Primary Care Provider. Call [facility] ([phone]) or report to the closest Emergency Room. Call 911 if necessary. 02/12/23 1341 <Electronically signed by Noel Banegas MD> Cosigner Signature (if applicable): CC: Dr. Rin Du MD ~ Signed [facility] Work Phone: Discharge summary Author Abhay Lopez [facility] February 13, 2023 2:11pm Note Date/Time February 13, 2023 2:09pm [facility] Medical Records Department [address] [place] [address] Instructions for Home/Discharge Instructions 02/13/23 1407 MR#: [id number] Acct: [id number] Name: RONEY LARSEN Rep #:[id number] : 1950 72 From: Abhay mendieta DO PCP: Dr. Rin Du MD Status:A DM YUMIKO Discharge Instructions Diet Discharge Diet: No restrictions Activity Discharge Activity: Return to Normal Activity Weight Bearing Status: Full weight bearing Follow Up Care Please Follow Up With: Rin Du MD When: As needed Test Results: Test results from this visit will be discussed in further detail at your follow- up appointment, if applicable. Pending Tests Upon Discharge: None Discharge Plan Admission Admit Date/Time: 02/12/23 12:31 Primary Reason for Your Visit: Stroke rule out Attending Provider: Abhay Lopez Primary Care Provider: Rin Du Instructions Additional Instructions / Restrictions: Please call the vestibular physical therapy office to schedule an appointment there soon. Take Antivert up to 3 times daily as needed for dizziness. Continue all other home medications the same. Follow-up with your primary care doctor as needed. Discharge Orders/Prescriptions Prescriptions: New meclizine 12.5 mg Tablet 12.5 mg PO TID PRN PRN (Reason: Dizziness) 30 Days Qty: 30 0RF Continued Centrum Silver Men 300-600-300 mcg tablet 1 tab PO DAILY niacin 100 mg tablet 500 mg PO DAILY ascorbate calcium (vitamin C) 500 mg tablet 500 mg PO DAILY [id number]-[id number]-uzwl 333-133-5 mg tablet 1 tab PO DAILY Tylenol Extra Strength 500 mg powder in packet 500 mg PO Q6H PRN (Reason: pain) ibuprofen 400 mg tablet 600 mg PO BID PRN (Reason: pain) aspirin 81 mg tablet,delayed release (DR/EC) 81 mg PO DAILY omega 9-xiw-rhm-fish oil [Fish Oil] 1,200 (144-216) mg capsule 2 cap PO DAILY cholecalciferol (vitamin D3) [Vitamin D3] 50 mcg (2,000 unit) Capsule 50 mcg PO DAILY simvastatin 80 mg tablet 80 mg PO QPM Qty: 90 3RF doxazosin [Cardura] 4 mg tablet 4 mg PO QDAY Qty: 90 3RF fenofibrate 54 mg tablet 54 mg PO DAILY Qty: 90 3RF loratadine [Claritin] 10 mg tablet 10 mg PO DAILY PRN (Reason: allergy symptoms) Qty: 90 2RF Referrals / Follow Up: Rin Du MD [Primary Care Provider] - Disposition Disposition (needs filled in before D/C Order can be placed): Home, Self Care 02/13/23 1411<Electronically signed by Abhay Lopez DO>Abhay Lopez DO CC: Dr. Rin Du MD ~ Signed [facility] Work Phone: evaluation note* Diagnosis Onset Date Resolution Status Essential hypertension chron ic Hyperlipemia chronic Paroxysmal atrial fibrillation resolved Carotid artery stenosis acut e History of skin cancer acute BPH (benign prostatic hyperplasia) chronic Hyperlipemia [facility] Work Phone: Evaluation note* Diagnosis Onset Date Resolution Status History of total knee arthroplasty noneactive [facility] Work Phone: Evaluation note* Diagnosis Onset Date Resolution Status Essential hypertension chron ic Hyperlipemia chronic Paroxysmal atrial fibrillation resolved [facility] Work Phone: Evaluation note* Diagnosis Onset Date Resolution Status Essential hypertension chron ic Hyperlipemia chronic Paroxysmal atrial fibrillation resolved Elbow joint stiffness, bilateral acute BPH (benign prostatic hyperplasia) chronic Essential hypertension chron ic Hyperlipemia chronic [facility] Work Phone: Evaluation note* Diagnosis Onset Date Resolution Status Left knee pain noneactive Carotid artery stenosis acut e Coordination problem acute Dizziness acute Essential hypertension chron ic Hyperlipemia chronic [facility] Work Phone: Evaluation note* Diagnosis Onset Date Resolution Status History of arthroplasty of left knee acute [facility] Work Phone: Evaluation note* Diagnosis Onset Date Resolution Status History of arthroplasty of left knee acute History of arthroplasty of left knee acute BPH (benign prostatic hyperplasia) chronic BPPV (benign paroxysmal positional vertigo) chronic Essential hypertension chron ic Hyperlipemia chronic Left knee pain chronic [facility] Work Phone: Evaluation note* Diagnosis Left peroneal nerve palsy- [facility] Diagnosis Neuropathy of left peroneal nerve- [facility] Diagnosis Neuralgia of left peroneal nerve- [facility] Lesion of left lateral popliteal nerve- Primary Lesion of lateral popliteal nerve [facility] Diagnosis Leg heaviness- Primary Other musculoskeletal symptoms referable to limbs Neuralgia of left peroneal nerve Lumbar pars defect Acquired spondylolisthesis [facility] Chronic pain of left knee- Primary Pain in joint, lower leg [facility] Diagnosis Onset Date Resolution Status Admit Date Essential hypertension chronic Ju 2024 3:04pm Hyperlipemia chronic November 13 3:04pm Paroxysmal atrial fibrillation resol nael November 13, 2024 3:04pm [facility] Work Phone: Reason for referral (narrative)No reason for referral [facility] Work Phone: Summary Purpose Family History Relationship Condition Age at Onset Recorded Date/T silke father Cardiac disease Unknown Chronic obstructive pulmonary disease Unk nown brother Malignant neoplasm Unknown mother Paroxysmal atrial fibrillation Unknown Advance Directives Advance Directive Response Recorded Date/ Time Living Will Yes February 22, 2021 11:51am Power of [employer] Mill [employer] Yes February 11:51am Advance Directive Response Recorded Date/ Time Living Will Yes November 14, 2021 9 :46am Power of [employer] Yes November 14, 2021 9:46am Advance Directive Response Recorded Date/ Time Name of Medical Power of [employer]er [employer]ader -barbara February 12, 2023 1:22pm Living Will Yes February 12, 023 1:22pm Power of [employer]er [employer] Yes February 12, 2023 1:22pm Advance Directive Response Recorded Date/ Time Living Will Yes February 12, 023 1:22pm Power of [employer]er [employer]ader Yes February 12, 2023 1:22pm Advance Directive Response Recorded Date/ Time Living Will Yes February 12 023 1:22pm Do you have a Healthcare Power of [employer]er [employer]? Yes February 12, 2023 1:22pm Chief Complaint and Reason for Visit Chief Complaint 1 y fu (MOVED 06/21) 3 M FU Reason for Visit Essential hypertensi on Hyperlipemia Paroxysmal atrial fibrillation Carotid artery stenosis History of skin cancer BPH (benign prostatic hyperplasia) Hyperlipemia Chief Complaint 1 y fu (MOVED 06/21) 3 M FU LEFT CAROTID BRUIT Reason for Visit Essential hypertensi on Hyperlipemia Paroxysmal atrial fibrillation Carotid artery stenosis History of skin cancer BPH (benign prostatic hyperplasia) Hyperlipemia Chief Complaint LEFT KNEE xray Reason for Visit History of total kne e arthroplasty Chief Complaint 1 Y FU Occlusion and stenosis of left carotid artery Reason for Visit Essential hypertensi on Hyperlipemia Paroxysmal atrial fibrillation Chief Complaint 1 Y FU Occlusion and stenosis of left carotid artery 6 M FU Reason for Visit Essential hypertensi on Hyperlipemia Paroxysmal atrial fibrillation Elbow joint stiffness, bilateral BPH (benign prostatic hyperplasia) Essential hypertension Hyperlipemia Chief Complaint LEFT KNEE room 2 PROBLEMS COORDINATING/WALKING CVA RULE OUT Reason for Visit Left knee pain Carotid artery stenosis Coordination problem Dizziness Essential hypertension Hyperlipemia Chief Complaint LUMBAR SPINE Reason for Visit History of arthropla sty of left knee Chief Complaint LUMBAR SPINE 6 M FU Reason for Visit History of arthropla sty of left knee History of arthroplasty of left knee BPH (benign prostatic hyperplasia) BPPV (benign paroxysmal positional vertigo) Essential hypertension Hyperlipemia Left knee pain Chief Complaint Admit Date 1 Y FU November 13, 2024 3:04p m Reason for Visit Admit Date Essential hypertension November 13, 2024 3: 04pm Hyperlipemia November 13, 2024 3:04p m Paroxysmal atrial fibrillation November 13, 2024 3:04pm Additional Source Comments (unrecognized sect ion and content) No Status Records FoundNo Status Records FoundNo Status Records Found INFORMATION SOURCE (unrecogn ized section and content) DATE CREATED AUTHOR 08/31/2020 Kelechi Acosta [facility] DATE CREATED AUTHOR AUTHOR'S ORGANIZ ATION 07/31/2024 [facility] DATE CREATED AUTHOR AUTHOR'S ORGANIZ ATION 11/14/2024 [facility] Goals (unrecognized section and content) Goals may be documented in a n alternate sectionGoals may be documented in an alternate sectionGoals may be documented in an alternate sectionGoals may be documented in an alternate sectionGoals may be documented in an alternate sectionGoals may be documented in an alternate sectionGoals may be documented in an alternate sectionGoals may be documented in an alternate section Care Teams (unrecognized sec tion and content) Team Status: Active Member Role Status Dates No Primary Care Physician Family Provider Active Dr. Rin Du MD Primary Care Provider Active Team Status: Inactive Member Role Status Dates Dr. Rin Du MD Primary Care Provider, Refer ring Provider Active Jared Aguayo FAMILY CONSUMER SCIENTIST, FAMILY CONSUMER SCIENTIST-C Attending Provider Active Team Status: Active Member Role Status Dates Dr. Rin Du MD Primary Care Provider Active Dr. Elmer Curry MD Attending Provider Active Team Status: Inactive Member Role Status Dates Dr. Rin Du MD Primary Care Provider Active Dr. Elmer Curry MD Attending Provider, Referring Provider Active Team Status: Active Member Role Status Dates Dr. Rin Du MD Primary Care P rovider, Attending Provider, Referring Provider Active Team Status: Inactive Member Role Status Dates Dr. Rin Du MD Primary Care P rovider, Attending Provider, Referring Provider Active Team Status: Active Member Role Status Dates Dr. Rin Du MD Primary Care Provider Active Dr. Elmer Curry MD Attending Provider, Referring Provider Active Team Status: Inactive Member Role Status Dates Dr. Rin Du MD Primary Care Provider, Refer ring Provider Active Dr. Feroz Fairbanks DO Attending Provider Active Team Status: Inactive Member Role Status Dates Dr. Rin Du MD Primary Care Provider Active Dr. Darius Meier MD Attending Provider Active Team Status: Active Member Role Status Dates Dr. Rin Du MD Primary Care Provider Active Dr. Noel Banegas MD Emergency Provider Active Dr. Abhay Lopez DO Admit Provi gerson, Attending Provider, Other Provider Active Team Status: Active Member Role Status Dates Dr. Rin Du MD Primary Care Provider Active Dr. Darius Meier MD Attending Provider Active Team Status: Inactive Member Role Status Dates Dr. Rin Du MD Primary Care Provider Active Dr. Noel Banegas MD Emergency Provider Active Dr. Abhay Lopez DO Admit Provider, Attending Provider Active Team Status: Inactive Member Role Status Dates Dr. Rin Du MD Primary Care Provider, Refer ring Provider Active Dr. Jayjay Hunt DO Attending Provider Active Team Status: Inactive Member Role Status Dates Dr. Rin Du MD Primary Care Provider, Atten ding Provider Active Referral Nurse Relationship Specialty Start Date End Date Rin Du MD [address] [place] [address] PCP - General Internal Medicine 03/17/24 Referral Nurse Relationship Specialty Start Date End Date Rin Du MD [address] [place] [address] PCP - General Internal Medicine 03/17/24 Referral Nurse Relationship Specialty Start Date End Date Rin Du MD [address] [place] [address] PCP - General Internal Medicine 03/17/24 Team Status: Active Member Role Status Dates Dr. Rin Du MD Primary Care Provider Active Team Status: Inactive Member Role Status Dates Dr. Rin Du MD Primary Care Provider Active Start: November 13, 2024 End: November 13, 2024 Dr. Rin Du MD Referring Provider Active Start: November 13, 2024 End: November 13, 2024 Jared Aguayo FAMILY CONSUMER SCIENTIST, FAMILY CONSUMER SCIENTIST-C Attending Provider Active S tart: November 13, 2024 End: November 13, 2024 Source Comments (unrecognize d section and content) In the event this informatio n is protected by the Federal Confidentiality of Alcohol and Drug Abuse Patient Records regulations: The Federal rules restrict any use of the information to criminally investigate or prosecute any alcohol or drug abuse patient.[facility] event this information is protected by the Federal Confidentiality of Alcohol and Drug Abuse Patient Records regulations: The Federal rules restrict any use of the information to criminally investigate or prosecute any alcohol or drug abuse patient.[facility] the event this information is protected by the Federal Confidentiality of Alcohol and Drug Abuse Patient Records regulations: The Federal rules restrict any use of the information to criminally investigate or prosecute any alcohol or drug abuse patient.[facility] the event this information is protected by the Federal Confidentiality of Alcohol and Drug Abuse Patient Records regulations: The Federal rules restrict any use of the information to criminally investigate or prosecute any alcohol or drug abuse patient.[facility] the event this information is protected by the Federal Confidentiality of Alcohol and Drug Abuse Patient Records regulations: The Federal rules restrict any use of the information to criminally investigate or prosecute any alcohol or drug abuse patient.[facility] the event this information is protected by the Federal Confidentiality of Alcohol and Drug Abuse Patient Records regulations: The Federal rules restrict any use of the information to criminally investigate or prosecute any alcohol or drug abuse patient.[facility] the event this information is protected by the Federal Confidentiality of Alcohol and Drug Abuse Patient Records regulations: The Federal rules restrict any use of the information to criminally investigate or prosecute any alcohol or drug abuse patient.[facility] the event this information is protected by the Federal Confidentiality of Alcohol and Drug Abuse Patient Records regulations: The Federal rules restrict any use of the information to criminally investigate or prosecute any alcohol or drug abuse patient.[facility] the event this information is protected by the Federal Confidentiality of Alcohol and Drug Abuse Patient Records regulations: The Federal rules restrict any use of the information to criminally investigate or prosecute any alcohol or drug abuse patient.[facility] the event this information is protected by the Federal Confidentiality of Alcohol and Drug Abuse Patient Records regulations: The Federal rules restrict any use of the information to criminally investigate or prosecute any alcohol or drug abuse patient.[facility] Reason for Visit (unrecogniz ed section and content) Reason Comments New Patient Reason Comments Established Patient Reason Comments Appointment Rescheduled Reason Comments Consult FOR RECORDS PERTAINING TO PATIENTS WHO ARE OR HAVE BEEN ENROLLED IN A CHEMICAL DEPENDENCY/SUBSTANCEABUSE PROGRAM, SOME INFORMATION MAY BE OMITTED. This clinical summary was aggregated from multiple sources. Caution should be exercised in using it in the provision of clinical care. This summary normalizes information from multiple sources, and as a consequence, information in this document may materially change the coding, format and clinical context of patient data. In addition, data may be omitted in some cases. CLINICAL DECISIONS SHOULD BE BASED ON THE PRIMARY CLINICAL RECORDS. [facility]. provides no warranty or guarantee of the accuracy or completeness of information in this document.
[2024-12-29 13:38] LABS: AST(SGOT) 20 U/L (<=37); Alanine Aminotransfer ALT/SGPT 19 U/L (<=46); Albumin, Serum 4.4 g/dL (3.4-4.8); Alkaline Phosphatase 61 U/L (40-129); Anion Gap 10 (5-15); BUN 20 mg/dL (4-19); BUN/Creat Ratio 15.6 RATIO (10-20); Calcium,Total 10.1 mg/dL (7.6-11.0); Carbon Dioxide 25.2 mmol/L (21.0-32.0); Chloride 108 mmol/L (98-108); Cholesterol 135 mg/dL (<=200); Globulin 2.5 g/dL (2.2-4.2); Glucose 92 mg/dL (70-99); Low Density Lipoprotein Calc. 58 mg/dL; PSA,Total- Diagnostic 4.74 ng/mL (0.00-4.00); Potassium 4.9 mmol/L (3.3-5.1); Triglycerides 211 mg/dL; Very Low Density Lipoprotein 42 mg/dL (5-40); cholesterol:hdl ratio screen 3.82
== END | disposition home or self-care (01) ==
LOC: BIMLAB 08:05
PROVIDERS: PCP Internal Medicine; Referring Provider Internal Medicine; Visit Provider Internal Medicine
DX: I10 Essential (primary) hypertension (principal); E78.5 Hyperlipidemia, unspecified; N40.0 Benign prostatic hyperplasia without lower urinary tract symptoms
CPT/HCPCS: 36415; 80053; 80061; 84153